=== PATIENT | male | born 1945 | race African-American/Black ===

== ENCOUNTER 2017-09-15 16:52 | Inpatient (IN) | payer MEDICARE ==
[~2017-09-15] VITALS: Ht 172.7 cm; Wt 75.7 kg
[~2017-09-15 16:52] MED LIST: AMLO5TAB2 PO; ASPI-183 PO; ATOR40TA16 PO; ATRITAB PO; HYDR12.57 PO; TAMS0.4C4 PO
[2017-09-15 16:53] VITALS: BP 169/77; PULSE 78; RESP 16; TEMP 100.3; O2SAT 98
[2017-09-15] MEDS ORDERED: SODIUM CHLOR 0.9% 1000 ML INJ 1,000 ML IV ONE (16:59)
[2017-09-15 17:05] VITALS: BP 169/77; PULSE 78; RESP 28; O2SAT 98
--- NOTE | 2017-09-15 17:17 | RADRPT ---
EXAM DATE/TIME: 09/15/2017 17:04 [facility] COMPARISON: MRI BRAIN W/O CONTRAST, June 20, 2016, 11:24. CT BRAIN W/O CONTRAST, June 19, 2016, 15:24. INDICATIONS : Stroke alert, aphasia. RADIATION DOSE: 37.17 CTDIvol (mGy) This report was called by Dr. Elliott to Dr. Sadler at 5: 13 PM MEDICAL HISTORY : Non-responsive. SURGICAL HISTORY : Non-responsive. ENCOUNTER: Initial ACUITY: 1 day PAIN SCALE: Non-responsive LOCATION: Bilateral head TECHNIQUE: Multiple contiguous axial images were obtained of the head. Using automated exposure control and adj ustment of the mA and/or kV according to patient size, radiation dose was kept as low as reasonably a chievable to obtain optimal diagnostic quality images. DICOM format image data is available electro nically for review and comparison. FINDINGS: CEREBRUM: There is low-density seen in the left occipital lobe, posterior left temporal lobe, and left thalamus . This appears to represent a subacute area of infarction. The no hemorrhage is seen. The ventricles and cortical sulci have a normal appearance. There is low-density seen throughout the cerebral white matter. The ventricles are normal for age. No evidence of midline shift or hemorrhage. No extra-axi al fluid collections are seen. There is low-density seen in the anterior left lateral aspect of the m idbrain from prior infarction. POSTERIOR FOSSA: The cerebellum and brainstem are intact. The 4th ventricle is midline. The cerebellopontine angle i s unremarkable. EXTRACRANIAL: The visualized portion of the orbits is intact. SKULL: The calvaria is intact. No evidence of skull fracture. CONCLUSION: 1. Area of recent infarction involving the left occipital and posterior temporal lobes. 2. Older infarction involving the anterior left lateral midbrain. 3. Underlying suspected small vessel ischemic change in the white matter. Damion Elliott MD on September 15, 2017 at 17:10 Board Certified Radiologist. This report was verified electronically.
[2017-09-15 17:30] LABS: AUTOMATED NEUTROPHIL # 3.1 TH/MM3 (1.8-7.7); BASOPHIL % 0.9 % (0.0-2.0); EOSINOPHIL % 0.4 % (0.0-4.0); HEMATOCRIT 33.7 % (39.0-51.0); HEMOGLOBIN 10.6 GM/DL (13.0-17.0); LYMPH % 30.6 % (9.0-44.0); LYMPHOCYTE # 1.6 TH/MM3 (1.0-4.8); MEAN CELL VOLUME 72.6 FL (80.0-100.0); MEAN CORPUSCULAR HGB CONC 31.6 % (32.0-36.0); MEAN PLATELET VOLUME 10.9 FL (7.0-11.0); MONO % 7.4 % (0.0-8.0); MONOCYTE # 0.4 TH/MM3 (0-0.9); NEUT % 60.7 % (16.0-70.0); PLATELET COUNT 154 TH/MM3 (150-450); RED BLOOD COUNT 4.64 MIL/MM3 (4.50-5.90); RED CELL DISTRIBUTION WIDTH 17.5 % (11.6-17.2); WHITE BLOOD COUNT 5.1 TH/MM3 (4.0-11.0)
[2017-09-15] MEDS ORDERED: IOHEXOL 350 MG/ML 10 ML VIAL (for RAD DIAG) IVCONTRAST ONE (17:40)
[2017-09-15 17:41] LABS: INTERNATIONAL NORMALIZED RATIO 1.1 RATIO
[2017-09-15 17:50] LABS: TROPONIN I 0.63 NG/ML (0.02-0.05)
--- NOTE | 2017-09-15 17:55 | RADRPT ---
EXAM DATE/TIME: 09/15/2017 17:18 [facility] COMPARISON: No previous studies available for comparison. INDICATIONS : Stroke alert, right side weakness. IV CONTRAST: 98 cc Omnipaque 350 (iohexol) IV ; Cumulative dose for multiple exams. RADIATION DOSE: 8.83 CTDIvol (mGy) ; Combined studies MEDICAL HISTORY : Cerebrovascular disease. CVA,HIV SURGICAL HISTORY : Non-responsive. ENCOUNTER: Initial ACUITY: 1 day PAIN SCALE: Non-responsive LOCATION: cranial TECHNIQUE: Volumetric scanning was performed using a multi-row detector CT scanner. The data was post processed with a variety of visualization algorithms including full volume maximum intensity projection, multi -planar sliding thin slab reformation, curved planar reformation, and surface rendering techniques. Using automated exposure control and adjustment of the mA and/or kV according to patient size, radiat ion dose was kept as low as reasonably achievable to obtain optimal diagnostic quality images. DICO M format image data is available electronically for review and comparison. FINDINGS: There is abrupt occlusion of the proximal left posterior cerebral artery approximately 2 cm from its origin off the tip of the basilar artery. The more dista left l posterior cerebral artery filled via collaterals. The right posterior cerebral artery arises from the right internal carotid artery. CONCLUSION: Occlusion of the proximal left posterior cerebral artery 2 cm from its origin. The more distal branch es do fill via collaterals. Damion Elliott MD on September 15, 2017 at 17:47 Board Certified Radiologist. This report was verified electronically.
--- NOTE | 2017-09-15 18:04 | RADRPT ---
EXAM DATE/TIME: 09/15/2017 17:18 [facility] COMPARISON: CTA BRAIN W 3D RECON, September 15, 2017, 17:18. INDICATIONS : Stroke alert, right sided weakness. IV CONTRAST: 99 cc Omnipaque 350 (iohexol) IV ; Cumulative dose for multiple exams. RADIATION DOSE: 8.83 CTDIvol (mGy) ; Combined studies MEDICAL HISTORY : Cerebrovascular disease. HIV,CVA SURGICAL HISTORY : Non-responsive. ENCOUNTER: Initial ACUITY: 1 day PAIN SCALE: Non-responsive LOCATION: neck Elevated flow velocities and ICA/CCA ratios have been found to correlate with increased degrees of vessel stenosis, calculated as percentage of diameter relative to a normal segment of distal ICA/CCA. TECHNIQUE: Volumetric scanning was performed using a multirow detector CT scanner. The data was post processed with a variety of visualization algorithms including full-volume maximum intensity projection, multip lanar sliding thin-slab reformation, curved-planar reformation, and surface-rendering techniques. Us ing automated exposure control and adjustment of the mA and/or kV according to patient size, radiatio n dose was kept as low as reasonably achievable to obtain optimal diagnostic quality images. DICOM f ormat image data is available electronically for review and comparison. FINDINGS: The study is severely limited. The vast majority of the contrast is within the systemic venous system . On the CTA of the head, there is mild contrast within the arterial structures in the neck. The comm on carotid and internal carotids are patent bilaterally. The vertebral arteries are patent bilaterall y. The internal carotid bulb medially directed posterior to the oropharynx secondary to tortuosity. CONCLUSION: Extremely limited CT of the head. The major vessels are patent. Damion Elliott MD on September 15, 2017 at 17:56 Board Certified Radiologist. This report was verified electronically.
--- NOTE | 2017-09-15 18:12 | PD ---
HPI Chief Complaint: Stroke Alert Time Seen by Provider: 16:59 Travel History International Travel<30 days: No Contact w/Intl Traveler<30days: No Traveled to known affect area: No History of Present Illness HPI This is a 72-year-old male who presents to the emergency department with weakness of his right arm and right leg. History is obtained from the patient' s daughter. The patient was evidently home with his girlfriend. The girlfriend reported that his symptoms started around 10 AM with speech difficulty but that he hasn't been walking normally all day. The patient has a history of stroke in the past about a year ago. His daughter also reports that he has HIV and he hasn't been taking his medications. Patient is unable to provide any history. PFSH Past Medical History Arthritis: Yes Autoimmune Disease: Yes (HIV ) Heart Rhythm Problems: Yes Cancer: No Cardiovascular Problems: Yes Cerebrovascular Accident: Yes Diabetes: No Diminished Hearing: No Endocrine: No Genitourinary: No Hypertension: Yes Immune Disorder: No Musculoskeletal: No Neurologic: Yes Psychiatric: No Reproductive: No Respiratory: No Immunizations Current: Yes Migraines: No Seizures: No Thyroid Disease: No Tetanus Vaccination: Unknown Influenza Vaccination: Yes ?: Unknown Past Surgical History Surgical History: Unable to Obtain Abdominal Surgery: No AICD: No Arteriovenous Shunt: No Cardiac Surgery: No Ear Surgery: No Endocrine Surgery: No Eye Surgery: Yes Genitourinary Surgery: No Gynecologic Surgery: No Joint Replacement: No Neurologic Surgery: Yes (lumbar fusion) Pacemaker: No Thoracic Surgery: No Social History Alcohol Use: No Tobacco Use: No Substance Use: No Allergies-Medications (Allergen,Severity, Reaction): Coded Allergies: No Known Allergies (Verified Allergy, Unknown, 09/15/17) Reported Meds & Prescriptions Reported Meds & Active Scripts Active Tamsulosin (Tamsulosin HCl) 0.4 Mg Cap 0.8 Mg PO HS PRN Reported Hydrochlorothiazide 12.5 Mg Cap 12.5 Mg PO DAILY Atorvastatin (Atorvastatin Calcium) 40 Mg Tab 40 Mg PO DAILY Amlodipine (Amlodipine Besylate) 5 Mg Tab 5 Mg PO DAILY Tamsulosin (Tamsulosin HCl) 0.4 Mg Cap 0.4 Mg PO DAILY Aspirin 325 Mg Tab 325 Mg PO DAILY Atripla (Shiikgbmi-Lkuarsovfhimu-Xinktoxyg) 600-200-300 Mg Tab 1 Tab PO DAILY Take on an empty stomach. Review of Systems ROS Limitations: Speech Impaired Physical Exam Narrative GENERAL: Uncomfortable appearing. SKIN: Focused skin assessment warm and dry. HEAD: Atraumatic. Normocephalic. EYES: Pupils equal and round. No injection or drainage. ENT: Moist mucous membranes NECK: Trachea midline. CARDIOVASCULAR: Regular rate and rhythm. No murmur appreciated. RESPIRATORY: Clear to auscultation. Breath sounds equal bilaterally. GASTROINTESTINAL: Abdomen soft, non-tender, nondistended. MUSCULOSKELETAL: No obvious deformities. NEUROLOGICAL: Open eyes and closes left hand to commands, unable to move right arm against gravity, right leg has 4 out of 5 strength, completely aphasic, unable to follow commands to assess coordination or visual george. Data Data Last Documented VS Vital Signs Date Time Temp Pulse Resp B/P (MAP) Pulse Ox O2 Delivery O2 Flow Rate FiO2 09/15/17 17:05 78 28 169/77 (107) 98 Nasal Cannula 2.00 09/15/17 16:53 100.3 Orders Orders Diet Npo (09/15/17 Dinner) Activity Bed Rest (09/15/17 ) Electrocardiogram (09/15/17 ) I-Stat Creatinine (09/15/17 16:59) I-Stat Profile (09/15/17 16:59) Prothrombin Time / Inr (Pt) (09/15/17 16:59) Act Partial Throm Time (Ptt) (09/15/17 16:59) Complete Blood Count With Diff (09/15/17 16:59) Fibrinogen (09/15/17 16:59) Creatine Kinase (Cpk) (09/15/17 16:59) Troponin I (09/15/17 16:59) Ua Includes Microscopic (09/15/17 16:59) Drug Screen, Random Urine (09/15/17 16:59) Type And Screen (09/15/17 16:59) Ct Brain W/O Iv Contrast(Rout) (09/15/17 ) Cta Brain W Iv Contrast W 3d (09/15/17 16:59) Cta Neck W Iv Contrast W 3d (09/15/17 16:59) Consult Neurology (09/15/17 ) Blood Glucose (09/15/17 16:59) Ecg Monitoring (09/15/17 16:59) Neuro Checks Q2HX12,Q4H (09/15/17 16:59) Nursing Bedside Swallow Assess .ONCE (09/15/17 16:59) Iv Access Insert/Monitor (09/15/17 16:59) NPO (09/15/17 16:59) Oximetry (09/15/17 16:59) Oxygen Administration (09/15/17 16:59) Sodium Chlor 0.9% 1000 Ml Inj (Ns 1000 M (09/15/17 16:59) Resp Oxygen Hernesto C Titrat 1-4 L (09/15/17 16:59) Cath For Specimen (09/15/17 16:59) (Hub Use Only)Inp Phy Cons/Ref (09/15/17 ) Iohexol 350 Inj (Omnipaque 350 Inj) (09/15/17 17:40) CKMB (09/15/17 17:02) CKMB% (09/15/17 17:02) Admit Order (Ed Use Only) (09/15/17 18:03) Labs Laboratory Tests Test 09/15/17 17:02 White Blood Count 5.1 TH/MM3 Red Blood Count 4.64 MIL/MM3 Hemoglobin 10.6 GM/DL Bedside Hemoglobin 12.2 G/DL Hematocrit 33.7 % Bedside Hematocrit 36.0 % Mean Corpuscular Volume 72.6 FL Mean Corpuscular Hemoglobin 23.0 PG Mean Corpuscular Hemoglobin Concent 31.6 % Red Cell Distribution Width 17.5 % Platelet Count 154 TH/MM3 Mean Platelet Volume 10.9 FL Neutrophils (%) (Auto) 60.7 % Lymphocytes (%) (Auto) 30.6 % Monocytes (%) (Auto) 7.4 % Eosinophils (%) (Auto) 0.4 % Basophils (%) (Auto) 0.9 % Neutrophils # (Auto) 3.1 TH/MM3 Lymphocytes # (Auto) 1.6 TH/MM3 Monocytes # (Auto) 0.4 TH/MM3 Eosinophils # (Auto) 0.0 TH/MM3 Basophils # (Auto) 0.0 TH/MM3 CBC Comment DIFF FINAL Differential Comment Prothrombin Time 11.0 SEC Prothromb Time International Ratio 1.1 RATIO Activated Partial Thromboplast Time 23.2 SEC Fibrinogen 303 mg/dL Bedside Sodium 145 MMOL/L Bedside Potassium 4.3 MMOL/L Bedside Chloride 107 MMOL/L Bedside Blood Urea Nitrogen 17 MG/DL Bedside Creatinine 1.3 MG/DL Bedside Glucose 101 MG/DL Total Creatine Kinase 397 U/L Creatine Kinase MB 4.9 NG/ML Creatine Kinase MB % 1.2 % Troponin I 0.63 NG/ML [facility] Medical Screen Exam Complete: Yes Emergency Medical Condition: Yes Differential Diagnosis low grade fever, hypertensive no leukocytosis anemia troponin .63 ekg, nsr, lvh, mild downward sloping of st segments in v3 Last 24 hours Impressions Neck CTA 09/15/17 1659 Signed Impressions: Service Date/Time: Friday, September 15, 2017 17:18 - CONCLUSION: Extremely limited CT of the head. The major vessels are patent. 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 The more distal branches do fill via collaterals. Damion Elliott MD Head CT 09/15/17 0000 Signed Impressions: Service Date/Time: Friday, September 15, 2017 17:04 - CONCLUSION: 1. Area of recent infarction involving the left occipital and posterior temporal lobes. 2. Older infarction involving the anterior left lateral midbrain. 3. Underlying suspected small vessel ischemic change in the white matter. Damion Elliott MD Narrative Course This is a 72-year-old male who presents to the emergency Department as a stroke alert. Initially it was unclear the time of onset of symptoms. NIH stroke scale was found to be 22. Patient was rushed to CT scan which demonstrated an infarct which likely occurred more than 6 hours ago. I spoke to the patient's daughter who had more history. Evidently his symptoms started when he woke up this morning and at 10 AM his speech symptoms started which places him outside of a 6 hour window for intervention. Based on this patient is not a TPA candidate. CT demonstrates infarction in the left occipital and posterior temporal lobes. Patient also has a troponin of 0.63. I suspect this is demand ischemia in the setting of his acute stroke. He had a stroke in 2016 during which his troponin elevated to 0.3. It was recommended that he have a cardiac workup as an outpatient but it's unclear if he ever pursued this. I did speak with Dr. Gomez's on-call for cardiology who agreed to defer anticoagulation at this time. Patient will be admitted for further neurologic workup. Critical Care Narrative Aggregate critical care time was 35 minutes. Time to perform other separately billable procedures was not included in the critical care time. My time did not include minutes spent treating any other patients simultaneously or on activities that did not directly contribute to the patient's treatment. The services I provided to this patient were to treat and/or prevent clinically significant deterioration that could result in: Disability, I provided critical care services requiring my management, as noted below: Chart data review, documentation time, medication orders and management, vital sign assessments/reviewing monitor data, ordering and reviewing lab tests, ordering and interpreting/reviewing x-rays and diagnostic studies, care of the patient and discussion of the patient with the admitting physicians. Stroke Alert NIHSS NIH Stroke Scale Result: 22 NIHSS Time Completed: 16:55 Thrombolytic Contraindications Contraindications Comment: Unclear time of onset Physician Communication Physician Communication Discussed with Dr. Vegas Diagnosis Diagnosis: Primary Impression: Ischemic stroke Admitting Physician Requests: it Pauline Sadler MD Sep 15, 2017 18:12
[2017-09-15 18:19] VITALS: BP 192/116; PULSE 76; RESP 25; O2SAT 98
--- NOTE | 2017-09-15 18:23 | HHI.HP ---
[facility] Primary Care Physician Unknown Admission Diagnosis stroke Diagnoses: Chief Complaint: weakness right side Travel History International Travel<30 Days: No Contact w/Intl Traveler <30 Da: No Traveled to Known Affected Are: No History of Present Illness 72 year old right-handed male with PMH of HIV+ and HTN who is brought to the ED by EMS as a stroke alert. Patient reports his symptoms started last night with worsening weakness on the right side, and dysarthria at 10 AM today. He has right arm and leg weakness and difficulty with speech. He has had difficulty ambulating secondary to his right leg weakness. Denies visual changes. Denies numbness or tingling in extremities. Denies chest pain. Reports mild shortness of breath. He does not have a primary care physician. Family at bedside. Review of Systems ROS Limitations: Clinical Condition, Language Barrier, Speech Impaired Except as stated in HPI: all other systems reviewed are Neg Past Family Social History Past Medical History HIV+ HTN CVA with right sided weakness in 2016 Past Surgical History No surgeries Reported Medications Reported Meds & Active Scripts Active Tamsulosin (Tamsulosin HCl) 0.4 Mg Cap 0.8 Mg PO HS PRN Reported Hydrochlorothiazide 12.5 Mg Cap 12.5 Mg PO DAILY Atorvastatin (Atorvastatin Calcium) 40 Mg Tab 40 Mg PO DAILY Amlodipine (Amlodipine Besylate) 5 Mg Tab 5 Mg PO DAILY Tamsulosin (Tamsulosin HCl) 0.4 Mg Cap 0.4 Mg PO DAILY Aspirin 325 Mg Tab 325 Mg PO DAILY Atripla (Oepvkjcre-Jzfdvakuyhwuo-Wwaavhczt) 600-200-300 Mg Tab 1 Tab PO DAILY Take on an empty stomach. Allergies: Coded Allergies: No Known Allergies (Verified Allergy, Unknown, 09/15/17) Family History Denies stroke or cardiac disease in mother or father Social History Denies tobacco use, illicit drug use or EtOH use. Lives home alone, daughter plans to take him home after this admission Physical Exam Vital Signs Vital Signs Date Time Temp Pulse Resp B/P (MAP) Pulse Ox O2 Delivery O2 Flow Rate FiO2 09/15/17 16:53 100.3 78 16 169/77 (107) 98 09/15/17 16:53 98 2.00 09/15/17 16:53 98 2.00 09/15/17 16:53 98 Nasal Cannula 2.00 Physical Exam GENERAL: This is a well-nourished, well-developed patient, in no apparent distress. SKIN: No rashes, ecchymoses or lesions. Cool and dry. HEAD: Atraumatic. Normocephalic. No temporal or scalp tenderness. EYES: Pupils equal round and reactive. Extraocular motions intact. No scleral icterus. No injection or drainage. ENT: Nose without bleeding, purulent drainage or septal hematoma. Throat without erythema, tonsillar hypertrophy or exudate. Uvula midline. Airway patent. NECK: Trachea midline. No JVD or lymphadenopathy. Supple, nontender, no meningeal signs. CARDIOVASCULAR: Regular rate and rhythm without murmurs, gallops, or rubs. RESPIRATORY: Clear to auscultation. Breath sounds equal bilaterally. No wheezes , rales, or rhonchi. GASTROINTESTINAL: Abdomen soft, non-tender, nondistended. No hepato-splenomegaly , or palpable masses. No guarding. MUSCULOSKELETAL: Extremities without clubbing, cyanosis, or edema. No joint tenderness, effusion, or edema noted. No calf tenderness. Negative Homans sign bilaterally. NEUROLOGICAL: Awake and alert. Cranial nerves II through XII intact. Motor and sensory grossly within normal limits. Five out of 5 muscle strength in all muscle groups. Normal speech. Laboratory Laboratory Tests Test 09/15/17 17:02 White Blood Count 5.1 Red Blood Count 4.64 Hemoglobin 10.6 Bedside Hemoglobin 12.2 Hematocrit 33.7 Bedside Hematocrit 36.0 Mean Corpuscular Volume 72.6 Mean Corpuscular Hemoglobin 23.0 Mean Corpuscular Hemoglobin Concent 31.6 Red Cell Distribution Width 17.5 Platelet Count 154 Mean Platelet Volume 10.9 Neutrophils (%) (Auto) 60.7 Lymphocytes (%) (Auto) 30.6 Monocytes (%) (Auto) 7.4 Eosinophils (%) (Auto) 0.4 Basophils (%) (Auto) 0.9 Neutrophils # (Auto) 3.1 Lymphocytes # (Auto) 1.6 Monocytes # (Auto) 0.4 Eosinophils # (Auto) 0.0 Basophils # (Auto) 0.0 CBC Comment DIFF FINAL Differential Comment Prothrombin Time 11.0 Prothromb Time International Ratio 1.1 Activated Partial Thromboplast Time 23.2 Fibrinogen 303 Bedside Sodium 145 Bedside Potassium 4.3 Bedside Chloride 107 Bedside Blood Urea Nitrogen 17 Bedside Creatinine 1.3 Bedside Glucose 101 Total Creatine Kinase 397 Creatine Kinase MB 4.9 Creatine Kinase MB % 1.2 Troponin I 0.63 Result Diagram: 09/15/17 1702 Imaging Last Impressions Neck CTA 09/15/17 1659 Signed Impressions: Service Date/Time: Friday, September 15, 2017 17:18 - CONCLUSION: Extremely limited CT of the head. The major vessels are patent. 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 The more distal branches do fill via collaterals. Damion Elliott MD Head CT 09/15/17 0000 Signed Impressions: Service Date/Time: Friday, September 15, 2017 17:04 - CONCLUSION: 1. Area of recent infarction involving the left occipital and posterior temporal lobes. 2. Older infarction involving the anterior left lateral midbrain. 3. Underlying suspected small vessel ischemic change in the white matter. Damion Elliott MD Caprini VTE Risk Assessment Caprini VTE Risk Assessment: Mod/High Risk (score >= 2) Caprini Risk Assessment Model Point Value = 1 Point Value = 2 Point Value = 3 Point Value = 5 Age 41-60 Minor surgery BMI > 25 kg/m2 Swollen legs Varicose veins or History of unexplained or recurrent spontaneous Oral contraceptives or hormone replacement Sepsis (< 1 month) Serious lung disease, including pneumonia (< 1 month) Abnormal pulmonary function Acute myocardial infarction Congestive heart failure (< 1 month) History of inflammatory bowel disease Medical patient at bed rest Age 61-74 Arthroscopic surgery Major open surgery (> 45 min) Laparoscopic surgery (> 45 min) Malignancy Confined to bed (> 72 hours) Immobilizing plaster cast Central venous access Age >= 75 History of VTE Family history of VTE Factor V Leiden Prothrombin [id number] Lupus anticoagulant Anticardiolipin antibodies Elevated serum homocysteine Heparin-induced thrombocytopenia Other congenital or acquired thrombophilia Stroke (< 1 month) Elective arthroplasty Hip, pelvis, or leg fracture Acute spinal cord injury (< 1 month) Prophylaxis Regimen Total Risk Factor Score Risk Level Prophylaxis Regimen 0-1 Low Early ambulation 2 Moderate Order ONE of the following: *Sequential Compression Device (SCD) *Heparin 5000 units SQ BID 3-4 Higher Order ONE of the following medications: *Heparin 5000 units SQ TID *Enoxaparin/Lovenox 40 mg SQ daily (WT < 150 kg, CrCl > 30 mL/min) *Enoxaparin/Lovenox 30 mg SQ daily (WT < 150 kg, CrCl > 10-29 mL/min) *Enoxaparin/Lovenox 30 mg SQ BID (WT < 150 kg, CrCl > 30 mL/min) AND/OR *Sequential Compression Device (SCD) 5 or more Highest Order ONE of the following medications: *Heparin 5000 units SQ TID (Preferred with Epidurals) *Enoxaparin/Lovenox 40 mg SQ daily (WT < 150 kg, CrCl > 30 mL/min) *Enoxaparin/Lovenox 30 mg SQ daily (WT < 150 kg, CrCl > 10-29 mL/min) *Enoxaparin/Lovenox 30 mg SQ BID (WT < 150 kg, CrCl > 30 mL/min) AND *Sequential Compression Device (SCD) Assessment and Plan Assessment and Plan 72 year old right-handed male who is HIV+ and with HTN, previous stroke in 2016 who presented as a stoke alert in ED with complaints of dysarthria, and right- sided face, arm, and leg weakness. Initially it was unclear the time of onset of symptoms. NIH stroke scale was found to be 22. Patient was rushed to CT scan which demonstrated an infarct which likely occurred more than 6 hours ago. His symptoms started when he woke up this morning and at 10 AM his speech symptoms started which places him outside of a 6 hour window for intervention. Based on this patient is not a TPA candidate. CT demonstrates infarction in the left occipital and posterior temporal lobes. Neuro consulted as well as cardiology CVA (cerebral vascular accident) Status: Acute Plan: - Head CT acute infarction on left occipital and and inferior temporal lobe. 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 - Neurology consulted, appreciate recommendations - Allow for permissive hypertension at this time - Bedside swallow study - PT/OT consult - Neuro checks q4 hours ST segment changes on electrocardiogram Status: Acute Plan: -EKG reviewed with ST changes in leads II, III, aVF and with RBBB Repeat EKG NSR, LVH, mild downward sloping of st segments in V3 - Troponin 0.6 - Will check EKG and cardiac enzymes q6h x2 to assess for ACS - Cardiac telemetry - Aspirin 325mg daily - Lipitor 40mg po qhs - Consult Dr Yuen his cardiology Dr - Lipid profile and HbA1c - ECHO ordered HIV (human immunodeficiency virus infection) Status: Chronic Plan: - Patient had seen hematology/oncology about ~11 years ago and diagnosed with HIV - Will need to establish care to be provided as an outpatient Discussed Condition With patient, nurse, family, ED physician Physician Certification 2 Midnight Certification Type: Admission for Inpatient Services Order for Inpatient Services The services are ordered in accordance with Medicare regulations or non- Medicare payer requirements, as applicable. In the case of services not specified as inpatient-only, they are appropriately provided as inpatient services in accordance with the 2-midnight benchmark. Estimated LOS (days): 3 days is the estimated time the patient will need to remain in the hospital, assuming treatment plan goals are met and no additional complications. Post-Hospital Plan: Home Denisa Butcher MD Sep 15, 2017 18:23
[2017-09-15] MEDS ORDERED: SODIUM CHLORIDE 0.9% FLUSH 10 ML FLUSH IV FLUSH PRN (18:45)
[2017-09-15] MEDS ORDERED: GLUCAGON 1 MG/ML VIAL OTHER PRN (18:45)
[2017-09-15] MEDS ORDERED: ENALAPRILAT 1.25 MG/ML VIAL IV PUSH PRN (18:45)
[2017-09-15] MEDS ORDERED: LABETALOL HCL 100 MG/20 ML VIAL IV PUSH PRN (18:45)
[2017-09-15] MEDS ORDERED: DEXTROSE 50% IN WATER 50 ML VIAL(D50) IV PUSH PRN (18:45)
[2017-09-15 18:54] VITALS: BP 182/113; PULSE 74; RESP 18; O2SAT 98
[2017-09-15] MEDS ORDERED: ONDANSETRON HCL 4 MG/2 ML VIAL IV ONE (19:15)
[2017-09-15 21:00] VITALS: BP 195/113; PULSE 68; RESP 23; TEMP 98.4; O2SAT 98
[2017-09-15] MEDS: INSULIN ASPART SUPPLEMENTAL SCALE SQ SCH (21:00)
[2017-09-15] MEDS: SODIUM CHLORIDE 0.9% FLUSH 10 ML FLUSH IV FLUSH SCH (21:00)
[2017-09-15] MEDS: PRAVASTATIN SOD 40 MG TAB PO SCH (21:00)
[2017-09-16] VITALS (10 sets, daily range): BP systolic 178–192; BP diastolic 100–121; PULSE 66–98; RESP 18–23; TEMP 97.9–100.1; O2SAT 93–98
[2017-09-16] MEDS: HEPARIN SODIUM - SQ 10,000 UNITS/ML VIAL SQ SCH ×3 (00:54→20:53)
[2017-09-16 07:43] LABS: AUTOMATED NEUTROPHIL # 3.3 TH/MM3 (1.8-7.7); BASOPHIL % 0.4 % (0.0-2.0); EOSINOPHIL % 0.8 % (0.0-4.0); HEMATOCRIT 32.2 % (39.0-51.0); HEMOGLOBIN 10.1 GM/DL (13.0-17.0); LYMPH % 24.7 % (9.0-44.0); LYMPHOCYTE # 1.3 TH/MM3 (1.0-4.8); MEAN CELL VOLUME 72.4 FL (80.0-100.0); MEAN CORPUSCULAR HEMOGLOBIN 22.7 PG (27.0-34.0); MEAN CORPUSCULAR HGB CONC 31.3 % (32.0-36.0); MEAN PLATELET VOLUME 10.9 FL (7.0-11.0); MONO % 9.5 % (0.0-8.0); MONOCYTE # 0.5 TH/MM3 (0-0.9); NEUT % 64.6 % (16.0-70.0); PLATELET COUNT 140 TH/MM3 (150-450); RED BLOOD COUNT 4.44 MIL/MM3 (4.50-5.90); RED CELL DISTRIBUTION WIDTH 17.2 % (11.6-17.2); WHITE BLOOD COUNT 5.2 TH/MM3 (4.0-11.0)
[2017-09-16 08:00] LABS: CALCIUM 8.1 MG/DL (8.5-10.1); CREATININE 1.31 MG/DL (0.60-1.30)
[2017-09-16] MEDS: INSULIN ASPART SUPPLEMENTAL SCALE SQ SCH ×4 (08:00→20:58)
[2017-09-16 08:04] LABS: CHOLESTEROL/ HDL RATIO 3.67 RATIO; HDL CHOLESTEROL 30.5 MG/DL (40.0-60.0)
[2017-09-16 08:09] LABS: TROPONIN I 0.69 NG/ML (0.02-0.05)
--- NOTE | 2017-09-16 08:12 | PD.CONS ---
HPI Consult Requested By Primary Care Physician Unknown History of Present Illness 72 year old M with PMHx significant for HIV and HTN consulted for elevated troponins. He was brought to the ED by EMS as a stroke alert. Patient reports his symptoms started last night with worsening weakness on the right side, and dysarthria at 10 AM today. He has right arm and leg weakness and difficulty with speech. He has had difficulty ambulating secondary to his right leg weakness. Denies chest pain, SOB or palpitations. Review of Systems Consitutional: DENIES: Fatigue, Fever, Chills, Weight gain, Weight loss Eyes: DENIES: Amaurosis Fugax, Change in vision HEENT: DENIES: Lightheadedness, Change in hearing Respiratory: DENIES: See HPI, Cough, Snoring, Shortness of breath, Wheezing, Sputum production Cardiovascular: DENIES: See HPI, Chest pain, Palpitations, Syncope, Tachycardia Gastrointestinal: DENIES: Nausea, Vomiting, Change in bowel habits, Reflux, Bloody stools, Melena Genitourinary: DENIES: Urinary incontinence, Difficulty voiding Integumentary: DENIES: Rash Neurologic: DENIES: Tingling or numbness, Memory problems, Poor Balance, Stroke symptoms Musculoskeletal: DENIES: Joint pain, Muscle pain, Limited range of motion, Back pain Psychiatric: DENIES: Anxiety, Depression, Sleep disturbances Hematologic: DENIES: Bruising tendencies, Bleeding tendencies Endocrine: DENIES: Weight gain, Weight loss, Thyroid disease Past Family Social History Allergies: Coded Allergies: No Known Allergies (Verified Allergy, Unknown, 09/15/17) Past Medical History HIV+ HTN CVA with right sided weakness in 2016 Past Surgical History No surgeries Reported Medications Reported Meds & Active Scripts Active Tamsulosin (Tamsulosin HCl) 0.4 Mg Cap 0.8 Mg PO HS PRN Reported Hydrochlorothiazide 12.5 Mg Cap 12.5 Mg PO DAILY Atorvastatin (Atorvastatin Calcium) 40 Mg Tab 40 Mg PO DAILY Amlodipine (Amlodipine Besylate) 5 Mg Tab 5 Mg PO DAILY Tamsulosin (Tamsulosin HCl) 0.4 Mg Cap 0.4 Mg PO DAILY Aspirin 325 Mg Tab 325 Mg PO DAILY Atripla (Zyaijanjw-Mqsjgytndxvnu-Xuwoxxywq) 600-200-300 Mg Tab 1 Tab PO DAILY Take on an empty stomach. Active Ordered Medications Current Medications Medications (Trade) Dose Ordered Sig/Eyal Route Start Time Stop Time Status Last Admin (NS Flush) 2 ml BID IV FLUSH 09/15/17 21:00 (NS Flush) 2 ml UNSCH PRN IV FLUSH 09/15/17 18:45 (Vasotec Inj) 1.25 mg Q4H PRN IV PUSH 09/15/17 18:45 (Trandate Inj) 10 mg Q2H PRN IV PUSH 09/15/17 18:45 09/15/17 18:54 (Aspirin Chew) 81 mg DAILY PO 09/16/17 09:00 (Pravachol) 40 mg HS PO 09/15/17 21:00 (NovoLOG SUPPLEMENTAL SCALE) 1 ACHS SQ 09/15/17 21:00 (D50w (Vial) Inj) 50 ml UNSCH PRN IV PUSH 09/15/17 18:45 (Glucagon Inj) 1 mg UNSCH PRN OTHER 09/15/17 18:45 (Heparin Inj) 5,000 units Q12H SQ 09/15/17 21:00 09/16/17 00:54 Family History Denies stroke or cardiac disease in mother or father Social History Denies tobacco use, illicit drug use or EtOH use. Lives home alone, daughter plans to take him home after this admission Physical Exam Vital Signs Vital Signs Date Time Temp Pulse Resp B/P (MAP) Pulse Ox O2 Delivery O2 Flow Rate FiO2 09/16/17 04:30 98.1 66 20 188/100 (129) 97 09/16/17 01:30 97.9 69 23 190/110 (136) 98 09/15/17 21:00 98.4 68 23 195/113 (140) 98 09/15/17 20:02 09/15/17 18:54 74 18 182/113 (136) 98 Nasal Cannula 2.00 09/15/17 18:19 76 25 192/116 (141) 98 09/15/17 17:05 78 28 169/77 (107) 98 Nasal Cannula 2.00 09/15/17 16:53 100.3 78 16 169/77 (107) 98 09/15/17 16:53 98 2.00 09/15/17 16:53 98 2.00 09/15/17 16:53 98 Nasal Cannula 2.00 09/15/17 16:53 98 Room Air Physical Exam GENERAL: Well-nourished, well-developed patient. SKIN: Warm and dry. HEAD: Normocephalic. EYES: No scleral icterus. No injection or drainage. NECK: Supple, trachea midline. No JVD or lymphadenopathy. CARDIOVASCULAR: Regular rate and rhythm 1/6 DAYNA no gallops, or rubs. RESPIRATORY: Breath sounds equal bilaterally. No accessory muscle use. GASTROINTESTINAL: Abdomen soft, non-tender, nondistended. EXTREMITIES: No cyanosis, or edema. Laboratory Laboratory Tests Test 09/15/17 17:02 09/15/17 22:48 09/16/17 06:44 White Blood Count 5.1 5.2 Red Blood Count 4.64 4.44 Hemoglobin 10.6 10.1 Bedside Hemoglobin 12.2 Hematocrit 33.7 32.2 Bedside Hematocrit 36.0 Mean Corpuscular Volume 72.6 72.4 Mean Corpuscular Hemoglobin 23.0 22.7 Mean Corpuscular Hemoglobin Concent 31.6 31.3 Red Cell Distribution Width 17.5 17.2 Platelet Count 154 140 Mean Platelet Volume 10.9 10.9 Neutrophils (%) (Auto) 60.7 64.6 Lymphocytes (%) (Auto) 30.6 24.7 Monocytes (%) (Auto) 7.4 9.5 Eosinophils (%) (Auto) 0.4 0.8 Basophils (%) (Auto) 0.9 0.4 Neutrophils # (Auto) 3.1 3.3 Lymphocytes # (Auto) 1.6 1.3 Monocytes # (Auto) 0.4 0.5 Eosinophils # (Auto) 0.0 0.0 Basophils # (Auto) 0.0 0.0 CBC Comment DIFF FINAL DIFF FINAL Differential Comment Prothrombin Time 11.0 Prothromb Time International Ratio 1.1 Activated Partial Thromboplast Time 23.2 Fibrinogen 303 Bedside Sodium 145 Bedside Potassium 4.3 Bedside Chloride 107 Bedside Blood Urea Nitrogen 17 Bedside Creatinine 1.3 Bedside Glucose 101 Total Creatine Kinase 397 Creatine Kinase MB 4.9 Creatine Kinase MB % 1.2 Troponin I 0.63 0.70 Blood Urea Nitrogen 14 Creatinine 1.31 Random Glucose 92 Calcium Level 8.1 Sodium Level 141 Potassium Level 3.8 Chloride Level 112 Carbon Dioxide Level 23.0 Anion Gap 6 Estimat Glomerular Filtration Rate 66 Triglycerides Level 57 Cholesterol Level 112 Result Diagram: 09/16/17 0644 09/16/17 0644 Imaging Last Impressions Neck CTA 09/15/17 1659 Signed Impressions: Service Date/Time: Friday, September 15, 2017 17:18 - CONCLUSION: Extremely limited CT of the head. The major vessels are patent. 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 The more distal branches do fill via collaterals. Damion Elliott MD Head CT 09/15/17 0000 Signed Impressions: Service Date/Time: Friday, September 15, 2017 17:04 - CONCLUSION: 1. Area of recent infarction involving the left occipital and posterior temporal lobes. 2. Older infarction involving the anterior left lateral midbrain. 3. Underlying suspected small vessel ischemic change in the white matter. Damion Elliott MD Assessment and Plan Problem List: (1) CVA (cerebral vascular accident) ICD Codes: I63.9 - Cerebral infarction, unspecified Status: Acute Plan: 72 y/o M s/p CVA. No CV complaints. Telemetry SR with episodes of Afib with SVT, asymptomatic. He remains afebrile, hemodynamically stable recovering from CVA. Troponin minimally elevated in the setting of CVA and MARCIN, no need LHC at this time. HTN not controlled. Recommendations: 1. 2DEcho 2. 48Hr Holter monitor. If Afib identified OAC strongly recommended. 3. Statins, BB and ASA 4. Carotid Ultrasound 5. Neuro consult 6. Follow up with Cardiology upon discharge 7. Avoid electrolytes abnormalities 8. PT/OT Thank you for the opportunity to participate in the care of this patient Will be available on a PRN basis for an questions or concerns. (2) Hypertension ICD Codes: I10 - Essential (primary) hypertension Status: Acute (3) HIV (human immunodeficiency virus infection) ICD Codes: Z21 - Asymptomatic human immunodeficiency virus [HIV] infection status Status: Chronic (4) MARCIN (acute kidney injury) ICD Codes: N17.9 - Acute kidney failure, unspecified Status: Acute (5) Ischemic stroke ICD Codes: I63.9 - Cerebral infarction, unspecified Status: Acute (6) Elevated troponin ICD Codes: R79.89 - Other specified abnormal findings of blood chemistry Status: Acute Gonzalez-Kodi Long MD Sep 16, 2017 08:12
[2017-09-16] MEDS ORDERED: ASPIRIN 81 MG CHEW TAB PO SCH (09:00)
[2017-09-16] MEDS: SODIUM CHLORIDE 0.9% FLUSH 10 ML FLUSH IV FLUSH SCH ×2 (09:08→20:58)
[2017-09-16] MEDS ORDERED: METOPROLOL TARTRATE 50 MG TAB PO SCH (09:15)
[2017-09-16] MEDS: HYDROCHLOROTHIAZIDE 12.5 MG CAP PO SCH (09:15)
[2017-09-16] MEDS ORDERED: ONDANSETRON HCL 4 MG/2 ML VIAL ONE (14:52)
[2017-09-16] MEDS ORDERED: SODIUM CHLORIDE 0.9% FLUSH 10 ML FLUSH IV FLUSH PRN (15:45)
[2017-09-16] MEDS ORDERED: DEXTROSE 50% IN WATER 50 ML VIAL(D50) IV PUSH PRN (15:45)
[2017-09-16] MEDS ORDERED: GLUCAGON 1 MG/ML VIAL OTHER PRN (15:45)
[2017-09-16 16:10] LABS: HEMOGLOBIN A1C 6.1 % (4.3-6.0)
--- NOTE | 2017-09-16 16:17 | HHI.PR ---
Subjective Remarks patient right handed, non smoker telemetry- in sinus rhythm no complains of headaches, nausea or vomiting speech + expressive aphasia ff some commands Objective Vitals Vital Signs Date Time Temp Pulse Resp B/P (MAP) Pulse Ox O2 Delivery O2 Flow Rate FiO2 09/16/17 12:31 98.0 76 20 178/112 (134) 98 09/16/17 12:30 95 2.00 09/16/17 10:32 75 09/16/17 08:07 99.2 76 20 192/102 (132) 98 09/16/17 04:30 98.1 66 20 188/100 (129) 97 09/16/17 01:30 97.9 69 23 190/110 (136) 98 09/15/17 21:00 98.4 68 23 195/113 (140) 98 09/15/17 20:02 09/15/17 18:54 74 18 182/113 (136) 98 Nasal Cannula 2.00 09/15/17 18:19 76 25 192/116 (141) 98 09/15/17 17:05 78 28 169/77 (107) 98 Nasal Cannula 2.00 09/15/17 16:53 100.3 78 16 169/77 (107) 98 09/15/17 16:53 98 2.00 09/15/17 16:53 98 2.00 09/15/17 16:53 98 Nasal Cannula 2.00 09/15/17 16:53 98 Room Air I/O 09/15/17 09/15/17 09/15/17 09/16/17 09/16/17 09/16/17 07:00 15:00 23:00 07:00 15:00 23:00 Intake Total 0 ml 0 ml 1000 ml Balance 0 ml 0 ml 1000 ml Intake Oral 0 ml 0 ml IV Total 1000 ml # Voids 5 3 # Bowel Movements 5 2 Result Diagram: 09/16/17 0644 09/16/17 0644 Imaging Last Impressions Neck CTA [id number] Signed Impressions: Service Date/Time: Friday, September 15, 2017 17:18 - CONCLUSION: Extremely limited CT of the head. The major vessels are patent. 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 The more distal branches do fill via collaterals. Damion Elliott MD Head CT 09/15/17 0000 Signed Impressions: Service Date/Time: Friday, September 15, 2017 17:04 - CONCLUSION: 1. Area of recent infarction involving the left occipital and posterior temporal lobes. 2. Older infarction involving the anterior left lateral midbrain. 3. Underlying suspected small vessel ischemic change in the white matter. Damion Elliott MD Objective Remarks awake and alert, + expressive aphasia anicteric + mild facial asymmetry tongue midline-weak gag no nuchal rigidity lungs- no rales regular rhythm- occasional PAcs abdomen soft, nontender extremities left sided plegia A/P Assessment and Plan 72 year old right-handed male who is HIV+ and with HTN, previous stroke in 2016 who presented as a stoke alert in ED with complaints of dysarthria, and right- sided face, arm, and leg weakness. Initially it was unclear the time of onset of symptoms. NIH stroke scale was found to be 22. Patient was rushed to CT scan which demonstrated an infarct which likely occurred more than 6 hours ago. His symptoms started when he woke up this morning and at 10 AM his speech symptoms started which places him outside of a 6 hour window for intervention. Based on this patient is not a TPA candidate. CT demonstrates infarction in the left occipital and posterior temporal lobes. Neuro consulted as well as cardiology Acute CVA (cerebral vascular accident) involving left occipital and temporal lobe history of previous CVA per friend at bedside - still ambulates independently occasionally uses a cane - Head CT acute infarction on left occipital and and inferior temporal lobe. 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 speech therapy - swallowing and speech therapy- mechanical soft with thin liquids - Neuro checks q4 hours ST segment changes on electrocardiogram elevated troponin in the setting of CVA -EKG reviewed with ST changes in leads II, III, aVF and with RBBB, LAD, LAHB - Troponin 0.6 - Will check EKG and cardiac enzymes q6h x2 to assess for ACS - Cardiac telemetry - Aspirin 325mg daily - Lipitor 40mg po qhs - start metoprolol 25 mg po bid - cardiology ff - Lipid profile and HbA1c - ECHO ordered - 48 hours Holter monitoring HIV (human immunodeficiency virus infection) - Patient had seen hematology/oncology about ~11 years ago and diagnosed with HIV - Will need to establish care to be provided as an outpatient Acute KI r/o underlying CKI -start on gentle fluids On Heparin SQ Mercedes Johnson MD Sep 16, 2017 16:17
[2017-09-16] MEDS: SODIUM CHLOR 0.9% 1000 ML INJ 1,000 ML IV SCH (17:20)
[2017-09-16] MEDS: ASPIRIN 325 MG TAB PO SCH (17:21)
--- NOTE | 2017-09-16 17:30 | RADRPT ---
EXAM DATE/TIME: 09/16/2017 16:54 [facility] COMPARISON: CHEST SINGLE AP, June 19, 2016, 17:05. INDICATIONS : Short of breath MEDICAL HISTORY : Cardiovascular disease. HIV,CVA SURGICAL HISTORY : None. ENCOUNTER: Initial ACUITY: 2 days PAIN SCORE: Non-responsive. LOCATION: Bilateral chest FINDINGS: Mild diffuse nodular interstitial prominence. Left lung base airspace disease and volume loss. Cardia c silhouette is mildly enlarged. Remainder of exam is unchanged. CONCLUSION: 1. Mild cardiomegaly with diffuse nodular interstitial prominence which may reflect atypical pulmonar y edema or atypical infection in this patient with history of HIV. 2. Left lower lung zone airspace disease and volume loss concerning for pneumonia. David Soares MD on September 16, 2017 at 17:25 Board Certified Radiologist. This report was verified electronically.
--- NOTE | 2017-09-16 17:44 | EKG ---
Date Performed: 09/15/2017 Time Performed: 21:02:28 PTAGE: 72 years EKG: Sinus rhythm RIGHT BUNDLE BRANCH BLOCK LEFT ANTERIOR FASCICULAR BLOCK LEFT VENTRICULAR HYPERTROPHY AND ST-T CONRAD E Since previous tracing, no significant change noted ABNORMAL ECG PREVIOUS TRACING : 09/15/2017 17.39 DOCTOR: Ángela Larose Interpretating Date/Time 09/16/2017 17:42:32
--- NOTE | 2017-09-16 17:44 | EKG ---
Date Performed: 09/15/2017 Time Performed: 17:39:21 PTAGE: 72 years EKG: Sinus rhythm WITH OCCASIONAL SUPRAVENTRICULAR PREMATURE COMPLEXES RIGHT BUNDLE BRANCH BLOCK LEFT ANTERIOR FASCICU LAR BLOCK LEFT VENTRICULAR HYPERTROPHY AND ST-T CHANGE Since previous tracing, no significant change noted ABNORMAL ECG PREVIOUS TRACING : 06/20/2016 01.32 DOCTOR: Ángela Larose Interpretating Date/Time 09/16/2017 17:42:12
--- NOTE | 2017-09-16 17:49 | ECHRPT ---
Indication: CVA/TIA CONCLUSIONS Normal left ventricular size. Mild concentric left ventricular hypertrophy. The left ventricular systolic function is low normal with an estimated ejection fraction of 50%. The left atrial size is mildly dilated. The right atrial size is moderately dilated. A patent foramen ovale is present with a huva-ro-wbxne shunt demonstrated by color flow Doppler interrogation. Fdgz-da-btyujmhj mitral valve regurgitation. Aortic valve sclerosis is present. Wayh-nu-yzjskmty aortic valve regurgitation. There is moderate tricuspid regurgitation. The estimated pulmonary arterial pressure is 62 mmHg. Mild pulmonary valve regurgitation. BP: 192 / 102 HR: 75 Rhythm: Sinus MEASUREMENTS (Male / Female) Normal Values Technical Quality:Fair 2D ECHO LV Diastolic Diameter PLAX 5.0 cm 4.2 - 5.9 / 3.9 - 5.3 cm LV Systolic Diameter PLAX 3.9 cm IVS Diastolic Thickness 1.0 cm 0.6 - 1.0 / 0.6 - 0.9 cm LVPW Diastolic Thickness 1.0 cm 0.6 - 1.0 / 0.6 - 0.9 cm LV Relative Wall Thickness 0.4 RV Internal Dim ED PLAX 3.3 cm LVOT Diameter 2.3 cm Aortic Root Diameter 4.0 cm LA Systolic Diameter LX 3.1 cm 3.0 - 4.0 / 2.7 - 3.8 cm M-MODE AV Cusp Separation MM 2.2 cm DOPPLER AV Peak Velocity 128.0 cm/s AV Peak Gradient 6.6 mmHg AV Mean Gradient 4.0 mmHg AV Velocity Time Integral 19.9 cm AI Peak Velocity 560.0 cm/s AI Peak Gradient 125.4 mmHg AI Pressure Half Time 567.0 ms LVOT Peak Velocity 104.0 cm/s LVOT Peak Gradient 4.3 mmHg LVOT Velocity Time Integral 16.8 cm LVOT Cardiac Index 2671.4 cm/minm AV Area Cont Eq vti 3.5 cm AV Area Cont Eq pk 3.4 cm Mitral E Point Velocity 95.8 cm/s Mitral A Point Velocity 42.9 cm/s Mitral E to A Ratio 2.2 LV E' Lateral Velocity 6.9 cm/s Mitral E to LV E' Lateral Ratio 13.8 LV E' Septal Velocity 4.4 cm/s Mitral E to LV E' Septal Ratio 21.8 TR Peak Velocity 360.0 cm/s TR Peak Gradient 51.8 mmHg Right Atrial Pressure 10.0 mmHg Pulmonary Artery Systolic Pressu 61.8 mmHg Right Ventricular Systolic Press 61.8 mmHg PV Peak Velocity 63.2 cm/s PV Peak Gradient 1.6 mmHg FINDINGS LEFT VENTRICLE Normal left ventricular size. Mild concentric left ventricular hypertrophy. The left ventricular systolic function is low normal with an estimated ejection fraction of 50%. RIGHT VENTRICLE Normal right ventricular size and systolic function. LEFT ATRIUM The left atrial size is mildly dilated. RIGHT ATRIUM The right atrial size is moderately dilated. ATRIAL SEPTUM A patent foramen ovale is present with a apbw-[id number] shunt demonstrated by color flow Doppler interrogation. AORTA The aortic root and proximal ascending aorta are normal in size on limited imaging. MITRAL VALVE Lvzf-jz-iecjusie mitral valve regurgitation. AORTIC VALVE Aortic valve sclerosis is present. Gcfo-bm-jmrdnemf aortic valve regurgitation. TRICUSPID VALVE There is moderate tricuspid regurgitation. The estimated pulmonary arterial pressure is 61.8 mmHg. PULMONARY VALVE Mild pulmonary valve regurgitation. VESSELS The inferior vena cava is normal in size. PERICARDIUM No pericardial effusion. Hector Barkley MD, FACC (Electronically Signed) Final Date:16 September 2017 17:48
[2017-09-16] MEDS: METOPROLOL TARTRATE 50 MG TAB PO SCH (18:00)
[2017-09-16] MEDS: PRAVASTATIN SOD 40 MG TAB PO SCH (20:53)
[2017-09-17] VITALS (12 sets, daily range): BP systolic 170–205; BP diastolic 107–130; PULSE 75–86; RESP 18–20; TEMP 98.4–101.2; O2SAT 94–100
[2017-09-17] MEDS: ACETAMINOPHEN 325 MG TAB PO PRN (05:45)
[2017-09-17] MEDS: METOPROLOL TARTRATE 50 MG TAB PO SCH ×3 (06:00→22:07)
[2017-09-17] MEDS: SODIUM CHLOR 0.9% 1000 ML INJ 1,000 ML IV SCH (07:35)
[2017-09-17] MEDS: INSULIN ASPART SUPPLEMENTAL SCALE SQ SCH ×4 (08:00→22:17)
[2017-09-17 08:40] LABS: BICARBONATE 22.7 MEQ/L (21.0-32.0); BLOOD UREA NITROGEN 15 MG/DL (7-18); CHLORIDE 108 MEQ/L (98-107); CREATININE 1.33 MG/DL (0.60-1.30); GLOMERULAR FILTRATION RATE 64 ML/MIN (>89); GLUCOSE,RANDOM 89 MG/DL (74-106); IRON (FE) 24 MCG/DL (65-175); SODIUM (NA) 141 MEQ/L (136-145)
[2017-09-17 08:43] LABS: % SATURATION IRON PROFILE 6.4 % (20-50); FERRITIN 24 NG/ML (26-388); TOTAL IRON BINDING CAPACITY 374 MCG/DL (250-450)
[2017-09-17 08:56] LABS: AMORPHOUS SEDIMENT, URINE OCC; BACTERIA, URINE MANY /hpf; BILIRUBIN, URINE NEG (NEG); BLOOD, URINE LARGE (NEG); GLUCOSE,URINE NEG (NEG); KETONE, URINE TRACE mg/dL (NEG); MUCUS URINE MANY /lpf (OCC); NITRITE,URINE NEG (NEG); URINE LEUKOCYTE ESTERASE MOD (NEG)
[2017-09-17 08:57] LABS: URINE COLOR DARK-RED (YELLW/STRAW)
[2017-09-17] MEDS: SODIUM CHLORIDE 0.9% FLUSH 10 ML FLUSH IV FLUSH SCH ×2 (09:33→22:19)
[2017-09-17] MEDS: HEPARIN SODIUM - SQ 10,000 UNITS/ML VIAL SQ SCH ×2 (09:33→22:17)
[2017-09-17] MEDS: ASPIRIN 325 MG TAB PO SCH (09:33)
[2017-09-17] MEDS: HYDROCHLOROTHIAZIDE 12.5 MG CAP PO SCH (09:33)
[2017-09-17 12:07] LABS: HEMATOCRIT 32.2 % (39.0-51.0); HEMOGLOBIN 10.2 GM/DL (13.0-17.0); MEAN CELL VOLUME 72.5 FL (80.0-100.0); MEAN CORPUSCULAR HEMOGLOBIN 23.1 PG (27.0-34.0); MEAN CORPUSCULAR HGB CONC 31.8 % (32.0-36.0); MEAN PLATELET VOLUME 10.2 FL (7.0-11.0); PLATELET COUNT 138 TH/MM3 (150-450); RED BLOOD COUNT 4.44 MIL/MM3 (4.50-5.90); RED CELL DISTRIBUTION WIDTH 17.1 % (11.6-17.2); WHITE BLOOD COUNT 5.6 TH/MM3 (4.0-11.0)
[2017-09-17 12:10] LABS: INTERNATIONAL NORMALIZED RATIO 1.2 RATIO
[2017-09-17 12:31] LABS: BICARBONATE 22.7 MEQ/L (21.0-32.0); CALCIUM 8.2 MG/DL (8.5-10.1); CREATININE 1.28 MG/DL (0.60-1.30)
--- NOTE | 2017-09-17 12:57 | MB ---
cc: TONNY MICHELLE M.D. DATE OF CONSULTATION 09/16/2017 REASON FOR CONSULTATION Stroke. HISTORY OF THE PRESENT ILLNESS Mr. Parry is a 72-year-old man who has a history of HIV positive, hypertension who yesterday developed weakness on the right side with inability to talk. He came in as a stroke alert, however, symptoms began early in the morning. He was outside of the therapeutic window for TPA. He has a history of stroke in the past. PAST MEDICAL HISTORY 1. HIV positive. 2. Hypertension. 3. Stroke with right-sided weakness in 2016. MEDICATIONS At home: 1. Hydrochlorothiazide. 2. Atorvastatin. 3. Amlodipine. 4. Aspirin 325 milligrams daily. 5. Tamsulosin. 6. Atripla. ALLERGIES None known. NEUROLOGIC EXAMINATION VITAL SIGNS: His blood pressure is 178/112, pulse 76, respirations 20, temperature 98 degrees. Higher cortical functions, he is alert. He has got an expressive aphasia. He follows commands. Cranial nerves, there is a right upper motor neuron VII palsy. Other cranial nerves normal. Motor exam he is weak in the right arm and right leg at about 1/5 strength of the right arm, right leg as 2/5. He is strong in the left arm and left leg at 5/5. Reflexes are symmetric and 1+. There is a Babinski on the right. IMAGING CT scan of the brain shows an area of recent infarct in the left occipital and posterior temporal lobe. Older stroke involving the left lateral mid brain. Chronic ischemic change identified. There is no hemorrhage. Neck CTA was limited, no major vessel occlusion. However head CTA occlusion of the proximal left posterior cerebral artery 2 cm from its origin. LABORATORY DATA The white count is 5200, hemoglobin is 10, hematocrit is 32%, platelets 140,000. The sodium is 141, potassium 3.8, CO2 is 23. The BUN is 14, creatinine 1.31, cholesterol 112, LDL 70, HDL 30.5, triglycerides 57. PT 11.0, INR 1.1, APTT 23.2. Telemetry showing sinus rhythm with episodes of atrial fibrillation. IMPRESSION Left hemisphere stroke. The patient was not an IV TPA candidate because of the timing he was well outside the window. He was not a candidate for intervention because the CT angiogram finding of left [employer] INFORMATION [employer]ERK occlusion on the head CT does not correlate with his symptoms which are mainly in the MCA territory. RECOMMENDATIONS Continue aspirin 325 mg daily. Consider anticoagulation the next several days if he is a candidate given his atrial fibrillation. Evaluate further with an MRI and MRA of the brain as well as a echocardiogram. MD ARNIE Calderon/KAMILA /3:34 PM /12:52 PM
[2017-09-17] MEDS ORDERED: NIFEdipine 30 MG SUSTAINED RELEASE TAB PO SCH (14:30)
--- NOTE | 2017-09-17 14:53 | HHI.PR ---
Subjective Remarks seen with family at bedside smiling expressive aphasia episode of NSVT- asymptomatic Objective Vitals Vital Signs Date Time Temp Pulse Resp B/P (MAP) Pulse Ox O2 Delivery O2 Flow Rate FiO2 09/17/17 14:26 75 09/17/17 13:00 98 Nasal Cannula 3.00 09/17/17 12:17 98.8 75 18 170/112 (131) 98 09/17/17 08:49 80 09/17/17 08:15 98.4 75 18 179/121 (140) 98 09/17/17 05:00 101.2 84 19 198/119 (145) 99 09/17/17 00:28 100.4 84 19 187/107 (133) 94 09/16/17 21:00 87 09/16/17 20:46 100.1 98 18 181/121 (141) 93 189/121 (143) 09/16/17 17:39 95 Nasal Cannula 2.00 09/16/17 16:28 98.7 89 20 181/114 (136) 95 I/O 09/16/17 09/16/17 09/16/17 09/17/17 09/17/17 09/17/17 07:00 15:00 23:00 07:00 15:00 23:00 Intake Total 0 ml 1000 ml 360 ml 60 ml 990 ml Balance 0 ml 1000 ml 360 ml 60 ml 990 ml Intake Oral 0 ml 360 ml 60 ml IV Total 1000 ml 990 ml # Voids 3 2 3 # Bowel Movements 2 1 Result Diagram: 09/17/17 1030 09/17/17 1145 Imaging Last Impressions Chest X-Ray 09/16/17 0000 Signed Impressions: Service Date/Time: Saturday, September 16, 2017 16:54 - CONCLUSION: 1. Mild cardiomegaly with diffuse nodular interstitial prominence which may reflect atypical pulmonary edema or atypical infection in this patient with history of HIV. 2. Left lower lung zone airspace disease and volume loss concerning for pneumonia. David Soares MD Neck CTA [id number] Signed Impressions: Service Date/Time: Friday, September 15, 2017 17:18 - CONCLUSION: Extremely limited CT of the head. The major vessels are patent. 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 The more distal branches do fill via collaterals. Damion Elliott MD Head CT 09/15/17 0000 Signed Impressions: Service Date/Time: Friday, September 15, 2017 17:04 - CONCLUSION: 1. Area of recent infarction involving the left occipital and posterior temporal lobes. 2. Older infarction involving the anterior left lateral midbrain. 3. Underlying suspected small vessel ischemic change in the white matter. Damion Elliott MD Objective Remarks awake and alert, + expressive aphasia anicteric + mild facial asymmetry tongue midline-+ gag no nuchal rigidity lungs- no rales regular rhythm- sinus with occasional PAC abdomen soft, nontender extremities left sided plegia A/P Assessment and Plan 72 year old right-handed male who is HIV+ and with HTN, previous stroke in 2016 who presented as a stoke alert in ED with complaints of dysarthria, and right- sided face, arm, and leg weakness. Initially it was unclear the time of onset of symptoms. NIH stroke scale was found to be 22. Patient was rushed to CT scan which demonstrated an infarct which likely occurred more than 6 hours ago. His symptoms started when he woke up this morning and at 10 AM his speech symptoms started which places him outside of a 6 hour window for intervention. Based on this patient is not a TPA candidate. CT demonstrates infarction in the left occipital and posterior temporal lobes. Neuro consulted as well as cardiology Acute CVA (cerebral vascular accident) involving left occipital and temporal lobe history of previous CVA per friend at bedside - still ambulates independently occasionally uses a cane - Head CT acute infarction on left occipital and and inferior temporal lobe. Old infarction anterior left lat midbrain - Neck CTA reviewed patent major vessels, however limited study - Head CTA reviewed and findings discussed with ED physician Occlusion of proximal left [employer] V[employer] 2 cm from its origin - Neurology consulted, appreciate recommendations - PT/OT consult. speech therapy - swallowing and speech therapy- mechanical soft with thin liquids - Neuro checks q4 hours Episode of NSVT 09/17- mild elevated troponin in the setting of CVA on admission Uncotnrolled HYpertension HYperlipidemia - check troponin now - if further elevation- reconsult cardiology -EKG reviewed with ST changes in leads II, III, aVF and with RBBB, LAD, LAHB - Aspirin 325mg daily - Lipitor 40mg po qhs - on metoprolol 25 mg po bid, - increase to 50 mg po q 8- had episode of runs of SVT -- - cardiology ff - ECHO ordered - EF 50%. consider NERIS for additional BP control if creatinine continues to improve - 48 hours Holter monitoring- or event loop recorder if deemed necessary by Cardiology - Clonidine prn for SBP > 180 HIV (human immunodeficiency virus infection) - Patient had seen hematology/oncology about ~11 years ago and diagnosed with HIV - Will need to establish care to be provided as an outpatient Acute KI r/o underlying CKI -start on gentle fluids- de reased rate. monitor po intake - creatinine improve - non oliguric UTI - on Levaquin 500 mg IV Iron deficiency anemia - Ferrous sulfate 325 mg po bid On Heparin SQ q12 Mercedes Johnson MD Sep 17, 2017 14:53
[2017-09-17] MEDS ORDERED: LEVOFLOXACIN 500 MG PREMIX INJ 100 ML IV SCH (15:00)
--- NOTE | 2017-09-17 17:25 | RADRPT ---
EXAM DATE/TIME: 09/17/2017 16:15 [facility] COMPARISON: US KIDNEY/RENAL/BLADDER, June 21, 2016, 8:38. INDICATIONS : Hematuria. MEDICAL HISTORY : Hypercholesterolemia. Hypertension. Cerebrovascular accident. Urinary retention. Arthritis. HIV. Impotence. SURGICAL HISTORY : Orthopedic surgery, unspecified. ENCOUNTER: Initial ACUITY: 2 days PAIN SCORE: 0/10 LOCATION: Bilateral flank MEASUREMENTS: RIGHT KIDNEY: 11.0 x 5.8 x 4.4 cm LEFT KIDNEY: 10.0 x 5.4 x 5.2 cm FINDINGS: RIGHT KIDNEY: Renal cortex is normal in thickness and echotexture. No hydronephrosis, stone, or mass. LEFT KIDNEY: Renal cortex is normal in thickness and echotexture. No hydronephrosis, stone, or mass. BLADDER: The urinary bladder is not dilated. Echogenic non-shadowing material is seen layering within the depe ndent portion of the urinary bladder. This is small in volume. No large bladder stones. CONCLUSION: 1. Small amount of layering debris within the urinary bladder. Otherwise, unremarkable exam. Jonathan Lou Jr., MD on September 17, 2017 at 17:16 Board Certified Radiologist. This report was verified electronically.
--- NOTE | 2017-09-17 17:26 | RADRPT ---
EXAM DATE/TIME: 09/17/2017 16:55 [facility] COMPARISON: MRA BRAIN W/O CONTRAST, June 20, 2016, 11:24. CTA CAROTID ARTERIES W 3D RECON, September 15, 17:18. INDICATIONS : Stroke. MEDICAL HISTORY : Hypertension. SURGICAL HISTORY : Fusion, lumbar. ENCOUNTER: Subsequent ACUITY: 1 day PAIN SCORE: Nonresponsive. LOCATION: cranial Please note a normal MRA of the brain does not entirely exclude the possibility of a small aneurysm, nor the possibility of distal intracranial vessel disease. TECHNIQUE: 3D time of flight MRA was performed. Source images, multiplanar STS MIP, and 3D volume MIP reconstru ctions were reviewed. FINDINGS: There is excellent visualization of the major intracranial arteries out to the second-order branch ve ssels. There is no evidence for aneurysm, vessel truncation or stenosis, and no evidence for vascula r malformation. The distal right vertebral artery is diffusely narrowed. Its unchanged 2016. The internal carotid art eries are patent. The internal carotid bifurcations are unremarkable. The anterior cerebral system is unremarkable and stable. There is a patent right communicating artery CONCLUSION: Stable exam since 2015. No aneurysms identified. Patent right posterior communicating artery. Continu ed narrowing of the distal right vertebral artery unchanged. Jhon Horner MD on September 17, 2017 at 17:22 Board Certified Radiologist. This report was verified electronically.
--- NOTE | 2017-09-17 17:42 | RADRPT ---
EXAM DATE/TIME: 09/17/2017 16:55 [facility] COMPARISON: MRI BRAIN W/O CONTRAST, June 20, 2016, 11:24. INDICATIONS : CVA. MEDICAL HISTORY : Hypertension. SURGICAL HISTORY : Fusion, lumbar. ENCOUNTER: Subsequent ACUITY: 1 day PAIN SCORE: Nonresponsive. LOCATION: cranial TECHNIQUE: Multiplanar, multisequence MRI of the brain was performed without contrast. FINDINGS: CEREBRUM: The ventricles are normal for age. No evidence of midline shift, mass lesion, hemorrhage or acute in farction. No extraaxial fluid collections are seen. The pituitary gland and suprasellar cistern are normal in configuration. WHITE MATTER: Marked ischemic demyelinization change. POSTERIOR FOSSA: There is an old stroke in the left xiang. The 4th ventricle is midline. The cerebellopontine angle is unremarkable. The cerebellar tonsils are normal in position. DIFFUSION IMAGING: There is a triangle shaped area of increased signal involving the inferior right cerebellar hemispher e measuring 4.0 x 2.7 cm. There is a larger area of abnormal signal involving the medial left tempora l lobe and the anterior occipital lobes measuring 7.8 x 3.7 cm across. In the left thalamus the lesio n measures 0.8 x 1.5 cm. In the corpus callosum posteriorly on the left is an additional 10 x 5 mm ar ea of abnormal signal. There a few small areas in the high left parietal region along the great matter old new since 2016 travis spicious for acute strokes EXTRACRANIAL: The visualized portions of the orbits and paranasal sinuses are unremarkable. CONCLUSION: Multiple abnormal areas of signal scattered throughout the brain including infra-and supratentorially consistent multifocal strokes. I don't see any evidence of hemorrhage. Jhon Horner MD on September 17, 2017 at 17:36 Board Certified Radiologist. This report was verified electronically.
[2017-09-17] MEDS: FERROUS SULFATE 325 MG (65 MG ELEMENTAL IRON) TAB PO SCH (17:51)
--- NOTE | 2017-09-17 19:35 | PD.CARD.PN ---
Subjective Subjective Remarks Covering for Dr. Gonzalez Called for elevated troponin Seeing the patient, he is aphasic But able to answer simple questions No chest pain/SOB at this time Telemetry review 5 beat wide complex tachycardia with R-R variability, most likely Afib with aberrancy Objective Medications Current Medications Medications (Trade) Dose Ordered Sig/Eyal Route Start Time Stop Time Status Last Admin (Vasotec Inj) 1.25 mg Q4H PRN IV PUSH 09/15/17 18:45 (Trandate Inj) 10 mg Q2H PRN IV PUSH 09/15/17 18:45 09/15/17 18:54 (Pravachol) 40 mg HS PO 09/15/17 21:00 09/16/17 20:53 (Heparin Inj) 5,000 units Q12H SQ 09/15/17 21:00 09/17/17 09:33 (Microzide) 12.5 mg DAILY PO 09/16/17 09:15 09/17/17 09:33 (NS Flush) 2 ml BID IV FLUSH 09/16/17 21:00 09/17/17 09:33 (NS Flush) 2 ml UNSCH PRN IV FLUSH 09/16/17 15:45 Sodium Chloride 1,000 ml @ 30 mls/hr Q24H IV 09/16/17 15:38 09/17/17 07:35 (Aspirin) 325 mg DAILY PO 09/16/17 15:45 09/17/17 09:33 (NovoLOG SUPPLEMENTAL SCALE) 1 ACHS SQ 09/16/17 17:00 (D50w (Vial) Inj) 50 ml UNSCH PRN IV PUSH 09/16/17 15:45 (Glucagon Inj) 1 mg UNSCH PRN OTHER 09/16/17 15:45 (Tylenol) 650 mg Q4H PRN PO 09/16/17 21:00 09/17/17 05:45 (Catapres) 0.1 mg Q6H PRN PO 09/17/17 14:30 (Ferrous Sulfate) 325 mg BID@,17 PO 09/17/17 17:00 09/17/17 17:51 Levofloxacin/ Dextrose 100 ml @ 100 mls/hr Q24H IV 09/17/17 15:00 09/17/17 15:40 (Flomax) 0.4 mg DAILY PO 09/18/17 09:00 (Lopressor) 50 mg Q8HR PO 09/17/17 15:30 09/17/17 15:39 (Truvada 200-300 Mg) 1 tab HS PO 09/18/17 21:00 (Sustiva) 600 mg HS PO 09/18/17 21:00 Vital Signs / I&O Vital Signs Date Time Temp Pulse Resp B/P (MAP) Pulse Ox O2 Delivery O2 Flow Rate FiO2 09/17/17 18:07 100 Nasal Cannula 3.00 09/17/17 17:03 77 09/17/17 16:00 99.3 77 18 190/116 (140) 100 09/17/17 14:26 75 09/17/17 13:00 98 Nasal Cannula 3.00 09/17/17 12:17 98.8 75 18 170/112 (131) 98 09/17/17 08:49 80 09/17/17 08:15 98.4 75 18 179/121 (140) 98 09/17/17 05:00 101.2 84 19 198/119 (145) 99 09/17/17 00:28 100.4 84 19 187/107 (133) 94 09/16/17 21:00 87 09/16/17 20:46 100.1 98 18 181/121 (141) 93 189/121 (143) I/O 09/16/17 09/16/17 09/16/17 09/17/17 09/17/17 09/17/17 07:00 15:00 23:00 07:00 15:00 23:00 Intake Total 0 ml 1000 ml 360 ml 60 ml 1470 ml 758 ml Output Total 500 ml Balance 0 ml 1000 ml 360 ml 60 ml 970 ml 758 ml Intake Oral 0 ml 360 ml 60 ml 480 ml IV Total 1000 ml 990 ml 758 ml Output Urine Total 500 ml # Voids 3 2 3 # Bowel Movements 2 1 Physical Exam GENERAL: NAD, alert and awake SKIN: Warm and dry. HEAD: Atraumatic. Normocephalic. EYES: Pupils equal and round. No scleral icterus. No injection or drainage. ENT: No nasal bleeding or discharge. Mucous membranes pink and moist. NECK: Trachea midline. No JVD. CARDIOVASCULAR: Regular rate and rhythm. RESPIRATORY: No accessory muscle use. Clear to auscultation. Breath sounds equal bilaterally. GASTROINTESTINAL: Abdomen soft, non-tender, nondistended. Hepatic and splenic margins not palpable. MUSCULOSKELETAL: Extremities without clubbing, cyanosis, or edema. No obvious deformities. NEUROLOGICAL: Awake and alert. Right sided flaccid. Expressive aphasia Laboratory Laboratory Tests Test 09/17/17 07:44 09/17/17 08:13 09/17/17 10:30 09/17/17 11:45 Blood Urea Nitrogen 15 MG/DL 14 MG/DL Creatinine 1.33 MG/DL 1.28 MG/DL Random Glucose 89 MG/DL 100 MG/DL Calcium Level 8.0 MG/DL 8.2 MG/DL Sodium Level 141 MEQ/L 139 MEQ/L Potassium Level 3.9 MEQ/L 3.9 MEQ/L Chloride Level 108 MEQ/L 110 MEQ/L Carbon Dioxide Level 22.7 MEQ/L 22.7 MEQ/L Anion Gap 10 MEQ/L 6 MEQ/L Estimat Glomerular Filtration Rate 64 ML/MIN 67 ML/MIN Iron Level 24 MCG/DL Total Iron Binding Capacity 374 MCG/DL Percent Iron Saturation 6.4 % Ferritin 24 NG/ML Urine Color DARK-RED Urine Turbidity MARKED Urine pH 8.0 Urine Specific [place] 1.017 Urine Protein 300 mg/dL Urine Glucose (UA) NEG mg/dL Urine Ketones TRACE mg/dL Urine Occult Blood LARGE Urine Nitrite NEG Urine Bilirubin NEG Urine Urobilinogen LESS THAN 2.0 MG/DL Urine Leukocyte Esterase MOD Urine RBC /hpf Urine WBC 86 /hpf Urine Amorphous Sediment OCC Urine Bacteria MANY /hpf Urine Mucus MANY /lpf Microscopic Urinalysis Comment CULTURE INDICATED Urine Opiates Screen NEG Urine Barbiturates Screen NEG Urine Amphetamines Screen NEG Urine Benzodiazepines Screen NEG Urine Cocaine Screen NEG Urine Cannabinoids Screen NEG White Blood Count 5.6 TH/MM3 Red Blood Count 4.44 MIL/MM3 Hemoglobin 10.2 GM/DL Hematocrit 32.2 % Mean Corpuscular Volume 72.5 FL Mean Corpuscular Hemoglobin 23.1 PG Mean Corpuscular Hemoglobin Concent 31.8 % Red Cell Distribution Width 17.1 % Platelet Count 138 TH/MM3 Mean Platelet Volume 10.2 FL Prothrombin Time 12.0 SEC Prothromb Time International Ratio 1.2 RATIO Troponin I 1.05 NG/ML Thyroid Stimulating Hormone 3rd Gen 0.649 uIU/ML Assessment and Plan Problem List: (1) CVA (cerebral vascular accident) ICD Codes: I63.9 - Cerebral infarction, unspecified Status: Acute (2) Hypertension ICD Codes: I10 - Essential (primary) hypertension Status: Acute (3) HIV (human immunodeficiency virus infection) ICD Codes: Z21 - Asymptomatic human immunodeficiency virus [HIV] infection status Status: Chronic (4) MARCIN (acute kidney injury) ICD Codes: N17.9 - Acute kidney failure, unspecified Status: Acute (5) Ischemic stroke ICD Codes: I63.9 - Cerebral infarction, unspecified Status: Acute (6) Elevated troponin ICD Codes: R79.89 - Other specified abnormal findings of blood chemistry Status: Acute Assessment and Plan 1) Wide complex tachycardia most likely Afib with aberrancy Agree with BB therapy 2) Elevated troponin Patient currently hemodynamically stable without chest pain Patient is not an invasive candidate due to acute CVA Con't medical management 3) Covering for Dr. Gonzaelz No further cardiovascular work up, will see Martin Coleman DO Sep 17, 2017 19:35
--- NOTE | 2017-09-17 20:43 | EKG ---
Date Performed: 09/17/2017 Time Performed: 18:47:28 PTAGE: 72 years EKG: Sinus rhythm WITH OCCASIONAL SUPRAVENTRICULAR PREMATURE COMPLEXES RIGHT BUNDLE BRANCH BLOCK LEFT ANTERIOR FASCICU LAR BLOCK LEFT VENTRICULAR HYPERTROPHY AND ST-T CHANGE ABNORMAL ECG No significant change from prior electrocardiogram. PREVIOUS TRACING : 09/15/2017 21.02 DOCTOR: Kenyon Kelley Interpretating Date/Time 09/17/2017 20:43:23
[2017-09-17] MEDS: PRAVASTATIN SOD 40 MG TAB PO SCH (22:07)
--- NOTE | 2017-09-17 22:37 | HHI.PR ---
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 Repeat CT brain Saturday and if there is no sign of hemorrhage, would start eliquis. Diagnosis/Plan: Subjective Subjective Comments No acute events reported telemetry shows afib with aberrancy Active Medications Current Medications Medications (Trade) Dose Ordered Sig/Eyal Route Start Time Stop Time Status Last Admin (Vasotec Inj) 1.25 mg Q4H PRN IV PUSH 09/15/17 18:45 (Trandate Inj) 10 mg Q2H PRN IV PUSH 09/15/17 18:45 09/15/17 18:54 (Pravachol) 40 mg HS PO 09/15/17 21:00 09/17/17 22:07 (Heparin Inj) 5,000 units Q12H SQ 09/15/17 21:00 09/17/17 22:17 (Microzide) 12.5 mg DAILY PO 09/16/17 09:15 09/17/17 09:33 (NS Flush) 2 ml BID IV FLUSH 09/16/17 21:00 09/17/17 09:33 (NS Flush) 2 ml UNSCH PRN IV FLUSH 09/16/17 15:45 Sodium Chloride 1,000 ml @ 30 mls/hr Q24H IV 09/16/17 15:38 09/17/17 07:35 (Aspirin) 325 mg DAILY PO 09/16/17 15:45 09/17/17 09:33 (NovoLOG SUPPLEMENTAL SCALE) 1 ACHS SQ 09/16/17 17:00 (D50w (Vial) Inj) 50 ml UNSCH PRN IV PUSH 09/16/17 15:45 (Glucagon Inj) 1 mg UNSCH PRN OTHER 09/16/17 15:45 (Tylenol) 650 mg Q4H PRN PO 09/16/17 21:00 09/17/17 05:45 (Catapres) 0.1 mg Q6H PRN PO 09/17/17 14:30 (Ferrous Sulfate) 325 mg BID@12,17 PO 09/17/17 17:00 09/17/17 17:51 Levofloxacin/ Dextrose 100 ml @ 100 mls/hr Q24H IV 09/17/17 15:00 09/17/17 15:40 (Flomax) 0.4 mg DAILY PO 09/18/17 09:00 (Lopressor) 50 mg Q8HR PO 09/17/17 15:30 09/17/17 22:07 (Truvada 200-300 Mg) 1 tab HS PO 09/18/17 21:00 (Sustiva) 600 mg HS PO 09/18/17 21:00 Allergies Allergies Coded Allergies No Known Allergies (Verified Allergy, Unknown, 09/15/17) Exam I&O / VS 09/17/17 09/17/17 09/18/17 15:00 23:00 07:00 Intake Total 1470 ml 758 ml Output Total 500 ml Balance 970 ml 758 ml Intake Oral 480 ml IV Total 990 ml 758 ml Output Urine Total 500 ml Vital Signs Date Time Temp Pulse Resp B/P (MAP) Pulse Ox O2 Delivery O2 Flow Rate FiO2 09/17/17 20:00 99.8 86 20 205/130 (155) 100 09/17/17 18:07 100 Nasal Cannula 3.00 09/17/17 17:03 77 09/17/17 16:00 99.3 77 18 190/116 (140) 100 09/17/17 14:26 75 09/17/17 13:00 98 Nasal Cannula 3.00 09/17/17 12:17 98.8 75 18 170/112 (131) 98 09/17/17 08:49 80 09/17/17 08:15 98.4 75 18 179/121 (140) 98 09/17/17 05:00 101.2 84 19 198/119 (145) 99 09/17/17 00:28 100.4 84 19 187/107 (133) 94 Exam Comments alert. expressive aphasia. follows commands CN--right upper motor neuron CN 7 palsey MOTOR 0/5 RUE, 1/5 RLE. 5/5 LUE and LLE Objective Radiology Results MRI brain--multiple strokes in bilateral different vascular territories c/w embolic strokes Micro and Labs Laboratory Tests Test 09/17/17 07:44 09/17/17 08:13 09/17/17 10:30 09/17/17 11:45 Blood Urea Nitrogen 15 14 Creatinine 1.33 1.28 Random Glucose 89 100 Calcium Level 8.0 8.2 Sodium Level 141 139 Potassium Level 3.9 3.9 Chloride Level 108 110 Carbon Dioxide Level 22.7 22.7 Anion Gap 10 6 Estimat Glomerular Filtration Rate 64 67 Iron Level 24 Total Iron Binding Capacity 374 Percent Iron Saturation 6.4 Ferritin 24 Urine Color DARK-RED Urine Turbidity MARKED Urine pH 8.0 Urine Specific [place] 1.017 Urine Protein 300 Urine Glucose (UA) NEG Urine Ketones TRACE Urine Occult Blood LARGE Urine Nitrite NEG Urine Bilirubin NEG Urine Urobilinogen LESS THAN 2.0 Urine Leukocyte Esterase MOD Urine RBC Urine WBC 86 Urine Amorphous Sediment OCC Urine Bacteria MANY Urine Mucus MANY Microscopic Urinalysis Comment CULTURE INDICATED Urine Opiates Screen NEG Urine Barbiturates Screen NEG Urine Amphetamines Screen NEG Urine Benzodiazepines Screen NEG Urine Cocaine Screen NEG Urine Cannabinoids Screen NEG White Blood Count 5.6 Red Blood Count 4.44 Hemoglobin 10.2 Hematocrit 32.2 Mean Corpuscular Volume 72.5 Mean Corpuscular Hemoglobin 23.1 Mean Corpuscular Hemoglobin Concent 31.8 Red Cell Distribution Width 17.1 Platelet Count 138 Mean Platelet Volume 10.2 Prothrombin Time 12.0 Prothromb Time International Ratio 1.2 Troponin I 1.05 Thyroid Stimulating Hormone 3rd Gen 0.649 Date/Time Source Procedure Growth Status 09/17/17 15:06 Blood Peripheral Aerobic Blood Culture Pending Received 09/17/17 15:06 Blood Peripheral Anaerobic Blood Culture Pending Received 09/17/17 08:13 Urine Clean Catch Urine Culture Pending Received Diagnostic Tests ECHO--Consistent with PFO Anoop Valencia PhD Sep 17, 2017 22:36
[2017-09-17] MEDS: ATORVASTATIN 10 MG TAB PO SCH (23:50)
[2017-09-18] VITALS (13 sets, daily range): BP systolic 120–194; BP diastolic 85–115; PULSE 61–78; RESP 18–20; TEMP 97.4–100.8; O2SAT 97–100
[2017-09-18] MEDS: SODIUM CHLOR 0.9% 1000 ML INJ 1,000 ML IV SCH (01:26)
[2017-09-18] MEDS: cloNIDine HCL 0.1 MG TAB PO PRN (01:37)
[2017-09-18] MEDS: METOPROLOL TARTRATE 50 MG TAB PO SCH ×3 (05:55→21:22)
[2017-09-18] MEDS: INSULIN ASPART SUPPLEMENTAL SCALE SQ SCH ×4 (08:00→21:00)
[2017-09-18] MEDS ORDERED: NON-FORMULARY DRUG (Efavirenz-Emtricitabine-Tenofovir (Atripla) 1 TAB) PO SCH (09:00)
[2017-09-18] MEDS: SODIUM CHLORIDE 0.9% FLUSH 10 ML FLUSH IV FLUSH SCH ×2 (09:00→21:24)
[2017-09-18] MEDS: ACETAMINOPHEN 325 MG TAB PO PRN (09:53)
[2017-09-18] MEDS: TAMSULOSIN HCL 0.4 MG CAP PO SCH (09:53)
[2017-09-18] MEDS: HYDROCHLOROTHIAZIDE 12.5 MG CAP PO SCH (09:53)
[2017-09-18] MEDS: HEPARIN SODIUM - SQ 10,000 UNITS/ML VIAL SQ SCH ×2 (09:54→21:22)
[2017-09-18] MEDS: ASPIRIN 325 MG TAB PO SCH (09:59)
--- NOTE | 2017-09-18 11:03 | RADRPT ---
EXAM DATE/TIME: 09/18/2017 10:30 [facility] COMPARISON: MRI BRAIN W/O CONTRAST, September 17, 2017, 16:55. CT BRAIN W/O CONTRAST, September 15, 2017, 17:04. INDICATIONS : Follow up stroke. Evaluate for hemorrhage. RADIATION DOSE: 56.35 CTDIvol (mGy) MEDICAL HISTORY : Cerebrovascular disease. Cardiovascular disease Hypertension. SURGICAL HISTORY : None. ENCOUNTER: Subsequent ACUITY: 3 days PAIN SCALE: Non-responsive LOCATION: cranial TECHNIQUE: Multiple contiguous axial images were obtained of the head. Using automated exposure control and adj ustment of the mA and/or kV according to patient size, radiation dose was kept as low as reasonably a chievable to obtain optimal diagnostic quality images. DICOM format image data is available electro nically for review and comparison. FINDINGS: Evolving infarct left occipital region with mild increase in edema without hemorrhage. Moderate raz ventricular white matter changes in both hemispheres. Evolving infarct right hemisphere without hemo rrhage. Ventricle size appropriate. Moderate periventricular white matter changes. CONCLUSION: Evolving infarcts left occipital region and right cerebellar hemisphere without hemor rhage. Mild increase in edema. Rob Watters MD FACR on September 18, 2017 at 10:59 Board Certified Radiologist. This report was verified electronically.
[2017-09-18] MEDS: NIFEdipine 30 MG SUSTAINED RELEASE TAB PO SCH (11:15)
--- NOTE | 2017-09-18 15:03 | HHI.PR ---
Subjective Remarks awake and alert, denies any pain stated his name mild expressive aphasia telemetry reviewed- paroxysmal a fib - over all rate controlled Objective Vitals Vital Signs Date Time Temp Pulse Resp B/P (MAP) Pulse Ox O2 Delivery O2 Flow Rate FiO2 09/18/17 12:00 99.3 61 18 165/106 (125) 100 09/18/17 09:56 98 Nasal Cannula 3.00 09/18/17 08:00 100.8 69 18 170/115 (133) 100 09/18/17 06:50 71 171/115 (133) 99 09/18/17 05:03 98.0 73 194/105 (134) 100 09/18/17 05:00 98 3.00 09/18/17 05:00 98 Nasal Cannula 3.00 09/18/17 04:00 97.4 74 18 178/108 (131) 98 09/18/17 03:49 76 09/18/17 00:00 98.2 78 18 168/112 (130) 99 09/17/17 20:30 78 09/17/17 20:00 99.8 86 20 205/130 (155) 100 09/17/17 18:07 100 Nasal Cannula 3.00 09/17/17 17:03 77 09/17/17 16:00 99.3 77 18 190/116 (140) 100 I/O 09/17/17 09/17/17 09/17/17 09/18/17 09/18/17 09/18/17 07:00 15:00 23:00 07:00 15:00 23:00 Intake Total 60 ml 1470 ml 758 ml Output Total 500 ml 450 ml Balance 60 ml 970 ml 758 ml -450 ml Intake Oral 60 ml 480 ml IV Total 990 ml 758 ml Output Urine Total 500 ml 450 ml # Voids 3 2 Result Diagram: 09/17/17 1030 09/17/17 1145 Imaging Last Impressions Renal Ultrasound 09/17/17 0000 Signed Impressions: Service Date/Time: Sunday, September 17, 2017 16:15 - CONCLUSION: 1. Small amount of layering debris within the urinary bladder. Otherwise, unremarkable exam. Jonathan Lou Jr., MD Head Magnetic Resonance Angiography 09/17/17 0000 Signed Impressions: Service Date/Time: Sunday, September 17, 2017 16:55 - CONCLUSION: Stable exam since 2016. No aneurysms identified. Patent right posterior communicating artery. Continued narrowing of the distal right vertebral artery unchanged. Jhon Horner MD Head CT 09/17/17 0000 Signed Impressions: Service Date/Time: Monday, September 18, 2017 10:30 - CONCLUSION: Evolving infarcts left occipital region and right cerebellar hemisphere without hemorrhage. Mild increase in edema. Rob Watters MD FACR Brain MRI 09/17/17 0000 Signed Impressions: Service Date/Time: Sunday, September 17, 2017 16:55 - CONCLUSION: Multiple abnormal areas of signal scattered throughout the brain including infra-and supratentorially consistent multifocal strokes. I don't see any evidence of hemorrhage. Jhon Horner MD Chest X-Ray 09/16/17 0000 Signed Impressions: Service Date/Time: Saturday, September 16, 2017 16:54 - CONCLUSION: 1. Mild cardiomegaly with diffuse nodular interstitial prominence which may reflect atypical pulmonary edema or atypical infection in this patient with history of HIV. 2. Left lower lung zone airspace disease and volume loss concerning for pneumonia. David Soares MD Neck CTA [id number] Signed Impressions: Service Date/Time: Friday, September 15, 2017 17:18 - CONCLUSION: Extremely limited CT of the head. The major vessels are patent. 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 The more distal branches do fill via collaterals. Damion Elliott MD Objective Remarks awake and alert, + expressive aphasia anicteric + mild facial asymmetry tongue midline-+ gag no nuchal rigidity lungs- no rales regular rhythm- sinus with occasional PAC abdomen soft, nontender extremities left sided plegia A/P Assessment and Plan 72 year old right-handed male who is HIV+ and with HTN, previous stroke in 2016 who presented as a stoke alert in ED with complaints of dysarthria, and right- sided face, arm, and leg weakness. Initially it was unclear the time of onset of symptoms. NIH stroke scale was found to be 22. Patient was rushed to CT scan which demonstrated an infarct which likely occurred more than 6 hours ago. His symptoms started when he woke up this morning and at 10 AM his speech symptoms started which places him outside of a 6 hour window for intervention. Based on this patient is not a TPA candidate. CT demonstrates infarction in the left occipital and posterior temporal lobes. Neuro consulted as well as cardiology Acute CVA (cerebral vascular accident) involving left occipital and temporal lobe history of previous CVA per friend at bedside 09/17 - still ambulates independently occasionally uses a cane - Head CT acute infarction on left occipital and and inferior temporal lobe. Old infarction anterior left lat midbrain - Neck CTA reviewed patent major vessels, however limited study - head CTA with Occlusion of proximal left PROTOTYPE MACHINIST 2 cm from its origin - PT/OT consult. speech therapy - swallowing and speech therapy- mechanical soft with thin liquids - continue on ASA - Dr. Valencia ff- plan to repeat CT on Saturday- if stable- start OAC- Eliquis Episode of NSVT 09/17- on telemetry- Paroxysmal a fib- rate controlled mild elevated troponin in the setting of CVA on admission Uncotnrolled HYpertension HYperlipidemia - check troponin now - if further elevation- reconsult cardiology -EKG reviewed with ST changes in leads II, III, aVF and with RBBB, LAD, LAHB - Aspirin 325mg daily - Lipitor 40mg po qhs -=increase to 50 mg po q 8- had episode of runs of SVT --09/17- rate controlled - Add Procardia 30 mg XL for BP control. continue on HCTZ - ECHO ordered - EF 50%. - Clonidine prn for SBP > 180 HIV (human immunodeficiency virus infection) - Patient had seen hematology/oncology about ~11 years ago and diagnosed with HIV - Will need to establish care to be provided as an outpatient Acute KI r/o underlying CKI -start on gentle fluids- de reased rate. monitor po intake - creatinine improve - non oliguric Lung Infilatrate on CXR- left- possible aspiration scenario based on clinical status and location start on augmentin 875 mg po bid Pyuria- final C and s- Lactobacillus- nomral kristie Discontinue Levaquin Iron deficiency anemia - Ferrous sulfate 325 mg po bid On Heparin SQ q12 CM consulted- referral to Mercedes Faria MD Sep 18, 2017 15:03
[2017-09-18] MEDS: FERROUS SULFATE 325 MG (65 MG ELEMENTAL IRON) TAB PO SCH ×2 (15:28→18:08)
[2017-09-18] MEDS: AMOXICILLIN/CLAVULANATE K 875 MG TAB PO SCH ×2 (17:00→21:20)
[2017-09-18] MEDS ORDERED: INFLUENZA VIRUS VACCINE (QUADRIVALENT) 0.5 ML SYR IM ONE (18:30)
--- NOTE | 2017-09-18 18:33 | HHI.PR ---
Review/Management Diagnosis multifocal embolic strokes afib patent PFO Plan Repeat CT brain Saturday. If no hemorrhage, start eliquis Diagnosis/Plan: Subjective Subjective Comments No acute events reported Active Medications Current Medications Medications (Trade) Dose Ordered Sig/Eyal Route Start Time Stop Time Status Last Admin (Vasotec Inj) 1.25 mg Q4H PRN IV PUSH 09/15/17 18:45 (Trandate Inj) 10 mg Q2H PRN IV PUSH 09/15/17 18:45 09/15/17 18:54 (Pravachol) 40 mg HS PO 09/15/17 21:00 09/17/17 22:07 (Heparin Inj) 5,000 units Q12H SQ 09/15/17 21:00 09/18/17 09:54 (Microzide) 12.5 mg DAILY PO 09/16/17 09:15 09/18/17 09:53 (NS Flush) 2 ml BID IV FLUSH 09/16/17 21:00 09/17/17 09:33 (NS Flush) 2 ml UNSCH PRN IV FLUSH 09/16/17 15:45 Sodium Chloride 1,000 ml @ 30 mls/hr Q24H IV 09/16/17 15:38 09/18/17 01:26 (Aspirin) 325 mg DAILY PO 09/16/17 15:45 09/18/17 09:59 (NovoLOG SUPPLEMENTAL SCALE) 1 ACHS SQ 09/16/17 17:00 (D50w (Vial) Inj) 50 ml UNSCH PRN IV PUSH 09/16/17 15:45 (Glucagon Inj) 1 mg UNSCH PRN OTHER 09/16/17 15:45 (Tylenol) 650 mg Q4H PRN PO 09/16/17 21:00 09/18/17 09:53 (Catapres) 0.1 mg Q6H PRN PO 09/17/17 14:30 09/18/17 01:37 (Ferrous Sulfate) 325 mg BID@,17 PO 09/17/17 17:00 09/18/17 18:08 (Flomax) 0.4 mg DAILY PO 09/18/17 09:00 09/18/17 09:53 (Lopressor) 50 mg Q8HR PO 09/17/17 15:30 09/18/17 15:28 (Truvada 200-300 Mg) 1 tab HS PO 09/18/17 21:00 (Sustiva) 600 mg HS PO 09/18/17 21:00 (Lipitor) 10 mg HS PO 09/17/17 22:40 09/17/17 23:50 (Procardia Xl) 30 mg DAILY PO 09/18/17 11:15 09/18/17 11:15 (Augmentin) 875 mg Q12HR PO 09/18/17 17:00 09/18/17 17:00 (Pneumovax-23 Inj) 25 mcg ONCE ONCE IM 09/19/17 10:00 09/19/17 10:01 Allergies Allergies Coded Allergies No Known Allergies (Verified Allergy, Unknown, 09/15/17) Exam I&O / VS Vital Signs Date Time Temp Pulse Resp B/P (MAP) Pulse Ox O2 Delivery O2 Flow Rate FiO2 09/18/17 17:52 100 Nasal Cannula 3.00 09/18/17 12:00 99.3 61 18 165/106 (125) 100 09/18/17 09:56 98 Nasal Cannula 3.00 09/18/17 08:00 100.8 69 18 170/115 (133) 100 09/18/17 07:00 71 09/18/17 06:50 71 171/115 (133) 99 09/18/17 05:03 98.0 73 194/105 (134) 100 09/18/17 05:00 98 3.00 09/18/17 05:00 98 Nasal Cannula 3.00 09/18/17 04:00 97.4 74 18 178/108 (131) 98 09/18/17 03:49 76 09/18/17 00:00 98.2 78 18 168/112 (130) 99 09/17/17 20:30 78 09/17/17 20:00 99.8 86 20 205/130 (155) 100 Exam Comments alert. expressive aphasia is improving and now able to say his name and repeat simple phrases. follows commands CN--right upper motor neuron CN 7 palsey MOTOR 1/5 RUE, 2/5 RLE. 5/5 LUE and LLE Objective Micro and Labs Date/Time Source Procedure Growth Status 09/17/17 15:06 Blood Peripheral Aerobic Blood Culture - Preliminary NO GROWTH IN 1 DAY Resulted 09/17/17 15:06 Blood Peripheral Anaerobic Blood Culture - Preliminary NO GROWTH IN 1 DAY Resulted 09/17/17 08:13 Urine Clean Catch Urine Culture - Final Lactobacillus Species Complete Anoop Valencia PhD Sep 18, 2017 18:33
[2017-09-18] MEDS: PRAVASTATIN SOD 40 MG TAB PO SCH (21:20)
[2017-09-18] MEDS: EMTRICITABINE/TENOFOVIR 200 MG/300 MG TAB PO SCH (21:20)
[2017-09-18] MEDS: ATORVASTATIN 10 MG TAB PO SCH (21:22)
[2017-09-19] VITALS (9 sets, daily range): BP systolic 139–173; BP diastolic 94–116; PULSE 67–77; RESP 18–22; TEMP 98.1–99.5; O2SAT 98–100
[2017-09-19] MEDS: SODIUM CHLOR 0.9% 1000 ML INJ 1,000 ML IV SCH ×2 (03:16→23:18)
[2017-09-19] MEDS: METOPROLOL TARTRATE 50 MG TAB PO SCH ×3 (05:56→21:17)
[2017-09-19] MEDS: cloNIDine HCL 0.1 MG TAB PO PRN ×2 (06:34→21:24)
--- NOTE | 2017-09-19 07:03 | RADRPT ---
EXAM DATE/TIME: 09/19/2017 06:47 [facility] COMPARISON: CHEST SINGLE AP, September 16, 2017, 16:54. INDICATIONS : Fever starting today MEDICAL HISTORY : Cardiovascular disease. HIV,CVA SURGICAL HISTORY : None. ENCOUNTER: Initial ACUITY: 1 day PAIN SCORE: Non-responsive. LOCATION: Bilateral chest FINDINGS: There is cardiomegaly and patchy bilateral airspace disease again seen this is greatest in the left l ower lobe. No effusions. Osseous structures are intact. CONCLUSION: No significant change has occurred. Deniz Castaneda MD on September 19, 2017 at 7:01 Board Certified Radiologist. This report was verified electronically.
[2017-09-19] MEDS: INSULIN ASPART SUPPLEMENTAL SCALE SQ SCH ×4 (08:00→21:00)
[2017-09-19] MEDS: ASPIRIN 325 MG TAB PO SCH (08:57)
[2017-09-19] MEDS: HYDROCHLOROTHIAZIDE 12.5 MG CAP PO SCH (08:57)
[2017-09-19] MEDS: HEPARIN SODIUM - SQ 10,000 UNITS/ML VIAL SQ SCH ×2 (08:57→13:03)
[2017-09-19] MEDS: AMOXICILLIN/CLAVULANATE K 875 MG TAB PO SCH ×2 (08:57→21:17)
[2017-09-19] MEDS: TAMSULOSIN HCL 0.4 MG CAP PO SCH (08:57)
[2017-09-19] MEDS: NIFEdipine 30 MG SUSTAINED RELEASE TAB PO SCH (08:57)
[2017-09-19] MEDS: SODIUM CHLORIDE 0.9% FLUSH 10 ML FLUSH IV FLUSH SCH ×2 (09:00→21:16)
--- NOTE | 2017-09-19 09:58 | HHI.PR ---
Subjective Remarks smiled but less interactive-compared to yesterday's exam, no verbal output drowsy Objective Vitals Vital Signs Date Time Temp Pulse Resp B/P (MAP) Pulse Ox O2 Delivery O2 Flow Rate FiO2 09/19/17 08:00 99.5 68 18 167/107 (127) 100 09/19/17 04:00 98.2 77 18 173/116 (135) 100 09/19/17 00:00 98.2 70 20 150/94 (112) 99 09/18/17 20:00 98.2 66 20 140/89 (106) 100 09/18/17 17:52 100 Nasal Cannula 3.00 09/18/17 16:00 99.0 69 18 120/85 (97) 97 09/18/17 12:00 99.3 61 18 165/106 (125) 100 09/18/17 09:56 98 Nasal Cannula 3.00 I/O 09/18/17 09/18/17 09/18/17 09/19/17 09/19/17 09/19/17 07:00 15:00 23:00 07:00 15:00 23:00 Output Total 450 ml Balance -450 ml Output Urine Total 450 ml # Voids 2 3 Result Diagram: 09/17/17 1030 09/17/17 1145 Imaging Last Impressions Chest X-Ray 09/19/17 0600 Signed Impressions: Service Date/Time: August 06:47 - CONCLUSION: No significant change has occurred. Deniz Castaneda MD Renal Ultrasound 09/17/17 0000 Signed Impressions: Service Date/Time: Sunday, September 17, 2017 16:15 - CONCLUSION: 1. Small amount of layering debris within the urinary bladder. Otherwise, unremarkable exam. Jonathan Lou Jr., MD Head Magnetic Resonance Angiography 09/17/17 0000 Signed Impressions: Service Date/Time: Sunday, September 17, 2017 16:55 - CONCLUSION: Stable exam since 2016. No aneurysms identified. Patent right posterior communicating artery. Continued narrowing of the distal right vertebral artery unchanged. Jhon Horner MD Head CT 09/17/17 0000 Signed Impressions: Service Date/Time: Monday, September 18, 2017 10:30 - CONCLUSION: Evolving infarcts left occipital region and right cerebellar hemisphere without hemorrhage. Mild increase in edema. Rob Watters MD FACR Brain MRI 09/17/17 0000 Signed Impressions: Service Date/Time: Sunday, September 17, 2017 16:55 - CONCLUSION: Multiple abnormal areas of signal scattered throughout the brain including infra-and supratentorially consistent multifocal strokes. I don't see any evidence of hemorrhage. Jhon Horner MD Neck CTA 09/15/17 1659 Signed Impressions: Service Date/Time: Friday, September 15, 2017 17:18 - CONCLUSION: Extremely limited CT of the head. The major vessels are patent. 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 The more distal branches do fill via collaterals. Damion Elliott MD Objective Remarks awake, aphasia ,ff commands but less interactive compared to yesterday anicteric + mild facial asymmetry tongue midline-+ gag no nuchal rigidity lungs- no rales regular rhythm- sinus with occasional PAC abdomen soft, nontender extremities left sided plegia A/P Assessment and Plan 72 year old right-handed male who is HIV+ and with HTN, previous stroke in 2016 who presented as a stoke alert in ED with complaints of dysarthria, and right- sided face, arm, and leg weakness. Initially it was unclear the time of onset of symptoms. NIH stroke scale was found to be 22. Patient was rushed to CT scan which demonstrated an infarct which likely occurred more than 6 hours ago. His symptoms started when he woke up this morning and at 10 AM his speech symptoms started which places him outside of a 6 hour window for intervention. Based on this patient is not a TPA candidate. CT demonstrates infarction in the left occipital and posterior temporal lobes. Neuro consulted as well as cardiology Acute CVA (cerebral vascular accident) involving left occipital and temporal lobe - Decrease in MS on exam this am 09/19 history of previous CVA per friend at bedside 09/17 - still ambulates independently occasionally uses a cane - Head CT acute infarction on left occipital and and inferior temporal lobe. Old infarction anterior left lat midbrain - Neck CTA reviewed patent major vessels, however limited study - head CTA with Occlusion of proximal left NEUROLOGY EPILEPSY PHYSICIAN 2 cm from its origin - PT/OT consult. speech therapy - swallowing and speech therapy- mechanical soft with thin liquids - continue on ASA - STAT head CT now- check for swelling, new infarction - check stat BS and CMP - d/w Dr. Valencia ff- Episode of NSVT 09/17- on telemetry- Paroxysmal a fib- rate controlled mild elevated troponin in the setting of CVA on admission Uncotnrolled HYpertension HYperlipidemia - telemetry- sinus with PACs- rate controlled -EKG reviewed with ST changes in leads II, III, aVF and with RBBB, LAD, LAHB - Aspirin 325mg daily - Lipitor 40mg po qhs -=continue on 50 mg po q 8- had episode of runs of SVT --09/17- rate controlled - Procardia 30 mg XL for BP control. - add diurretics- HCTZ 25 mg po daily - ECHO ordered - EF 50%. - Clonidine prn for SBP > 180 HIV (human immunodeficiency virus infection) - Patient had seen hematology/oncology about ~11 years ago and diagnosed with HIV - Will need to establish care to be provided as an outpatient Acute KI r/o underlying CKI -start on gentle fluids- de reased rate. monitor po intake - creatinine improve - non oliguric Lung Infilatrate on CXR- left- possible aspiration scenario based on clinical status and location started on augmentin 875 mg po bid Pyuria- final C and s- Lactobacillus- nomral kristie Discontinue Levaquin Iron deficiency anemia - Ferrous sulfate 325 mg po bid On Heparin SQ q12 CM consulted- referral to Alejandro ADD: stat CT shows edema and sulci effacement -start Decadron 4 mg q 8 Mercedes Johnson MD Sep 19, 2017 09:58
[2017-09-19] MEDS ORDERED: PNEUMOCOCCAL POLYVALENT INJ 25 MCG/0.5 ML SYR IM ONE (10:00)
--- NOTE | 2017-09-19 10:43 | HHI.PR ---
Review/Management Diagnosis multifocal embolic strokes--more lethargic and speech impaired more today than yesterday afib patent PFO Plan Stat CT brain today Diagnosis/Plan: Subjective Subjective Comments No acute events reported More lethargic this am, but no new focal SX. Active Medications Current Medications Medications (Trade) Dose Ordered Sig/Eyal Route Start Time Stop Time Status Last Admin (Vasotec Inj) 1.25 mg Q4H PRN IV PUSH 09/15/17 18:45 (Trandate Inj) 10 mg Q2H PRN IV PUSH 09/15/17 18:45 09/15/17 18:54 (Pravachol) 40 mg HS PO 09/15/17 21:00 09/18/17 21:20 (Heparin Inj) 5,000 units Q12H SQ 09/15/17 21:00 09/19/17 08:57 (NS Flush) 2 ml BID IV FLUSH 09/16/17 21:00 09/19/17 09:00 (NS Flush) 2 ml UNSCH PRN IV FLUSH 09/16/17 15:45 Sodium Chloride 1,000 ml @ 30 mls/hr Q24H IV 09/16/17 15:38 09/18/17 01:26 (Aspirin) 325 mg DAILY PO 09/16/17 15:45 09/19/17 08:57 (NovoLOG SUPPLEMENTAL SCALE) 1 ACHS SQ 09/16/17 17:00 09/19/17 08:00 (D50w (Vial) Inj) 50 ml UNSCH PRN IV PUSH 09/16/17 15:45 (Glucagon Inj) 1 mg UNSCH PRN OTHER 09/16/17 15:45 (Tylenol) 650 mg Q4H PRN PO 09/16/17 21:00 09/18/17 09:53 (Catapres) 0.1 mg Q6H PRN PO 09/17/17 14:30 09/19/17 06:34 (Ferrous Sulfate) 325 mg BID@,17 PO 09/17/17 17:00 09/18/17 18:08 (Flomax) 0.4 mg DAILY PO 09/18/17 09:00 09/19/17 08:57 (Lopressor) 50 mg Q8HR PO 09/17/17 15:30 09/19/17 05:56 (Truvada 200-300 Mg) 1 tab HS PO 09/18/17 21:00 09/18/17 21:20 (Sustiva) 600 mg HS PO 09/18/17 21:00 09/18/17 21:22 (Lipitor) 10 mg HS PO 09/17/17 22:40 09/18/17 21:22 (Procardia Xl) 30 mg DAILY PO 09/18/17 11:15 09/19/17 08:57 (Augmentin) 875 mg Q12HR PO 09/18/17 17:00 09/19/17 08:57 (Hydrodiuril) 25 mg DAILY PO 09/19/17 11:00 Allergies Allergies Coded Allergies No Known Allergies (Verified Allergy, Unknown, 09/15/17) Exam I&O / VS 09/19/17 09/19/17 09/20/17 15:00 23:00 07:00 # Voids 3 Vital Signs Date Time Temp Pulse Resp B/P (MAP) Pulse Ox O2 Delivery O2 Flow Rate FiO2 09/19/17 10:03 99 Nasal Cannula 3.00 09/19/17 08:00 99.5 68 18 167/107 (127) 100 09/19/17 04:00 98.2 77 18 173/116 (135) 100 09/19/17 00:00 98.2 70 20 150/94 (112) 99 09/18/17 20:00 98.2 66 20 140/89 (106) 100 09/18/17 17:52 100 Nasal Cannula 3.00 09/18/17 16:00 99.0 69 18 120/85 (97) 97 09/18/17 12:00 99.3 61 18 165/106 (125) 100 Exam Comments More lethargic but arousable. No speech output. able to follow simple commands. CN--right upper motor neuron CN 7 palsey MOTOR 0/5 RUE, 1/5 RLE. 5/5 LUE and LLE Objective Micro and Labs Date/Time Source Procedure Growth Status 09/17/17 15:06 Blood Peripheral Aerobic Blood Culture - Preliminary NO GROWTH IN 1 DAY Resulted 09/17/17 15:06 Blood Peripheral Anaerobic Blood Culture - Preliminary NO GROWTH IN 1 DAY Resulted 09/17/17 08:13 Urine Clean Catch Urine Culture - Final Lactobacillus Species Complete Anoop Valencia PhD Sep 19, 2017 10:43
[2017-09-19] MEDS: HYDROCHLOROTHIAZIDE 25 MG TAB PO SCH (11:00)
--- NOTE | 2017-09-19 11:18 | RADRPT ---
EXAM DATE/TIME: 09/19/2017 10:51 [facility] COMPARISON: MRI BRAIN W/O CONTRAST, September 17, 2017, 16:55. CT BRAIN W/O CONTRAST, September 18, 2017, 10:30. INDICATIONS : Recent acute stroke. Evaluate for edema. RADIATION DOSE: 32.40 CTDIvol (mGy) MEDICAL HISTORY : Cardiovascular disease. Cardiovascular disease Hypertension. SURGICAL HISTORY : None. ENCOUNTER: Subsequent ACUITY: 4 - 6 days PAIN SCALE: 0/10 LOCATION: cranial TECHNIQUE: Multiple contiguous axial images were obtained of the head. Using automated exposure control and adj ustment of the mA and/or kV according to patient size, radiation dose was kept as low as reasonably a chievable to obtain optimal diagnostic quality images. DICOM format image data is available electro nically for review and comparison. FINDINGS: Evolving left temporal-occipital and right cerebellar infarcts. There is overall increased edema in t he left temporo-occipital infarct with increased sulcal effacement but no significant herniation. The right cerebellar hemisphere infarct is stable in size. There is also an evolving left thalamic infar ct which appears unchanged from prior exam. Remainder of exam is stable. There are prominent periventricular white matter hypodensities bilateral ly. Ventricles are stable in size without midline shift. Basilar cisterns are intact. No intercurrent intra-axial or extra-axial hemorrhage. CONCLUSION: 1. Evolving left temporo-occipital, right cerebellar and left thalamic infarcts. There is slight incr eased edema in the left temporo-occipital infarct with increased sulcal effacement but no significant herniation. The right cerebellar and left thalamic infarcts are stable. 2. No intercurrent hemorrhage or hydrocephalus. David Soares MD on September 19, 2017 at 11:08 Board Certified Radiologist. This report was verified electronically.
[2017-09-19 12:26] LABS: ALBUMIN 2.8 GM/DL (3.4-5.0); ALT (GPT) 27 U/L (12-78); AST (GOT) 54 U/L (15-37); BICARBONATE 25.6 MEQ/L (21.0-32.0); BLOOD UREA NITROGEN 17 MG/DL (7-18); CALCIUM 8.7 MG/DL (8.5-10.1); CHLORIDE 104 MEQ/L (98-107); CREATININE 1.35 MG/DL (0.60-1.30); GLOMERULAR FILTRATION RATE 63 ML/MIN (>89); GLUCOSE,RANDOM 92 MG/DL (74-106); SODIUM (NA) 136 MEQ/L (136-145)
[2017-09-19 12:28] LABS: ALKALINE PHOSPHATASE 86 U/L (45-117); TOTAL BILIRUBIN ADULT 0.6 MG/DL (0.2-1.0); TOTAL PROTEIN 8.1 GM/DL (6.4-8.2)
[2017-09-19] MEDS: FERROUS SULFATE 325 MG (65 MG ELEMENTAL IRON) TAB PO SCH ×2 (13:00→17:00)
[2017-09-19] MEDS: DEXAMETHASONE SOD PHOS 4 MG/ML VIAL IV PUSH SCH ×2 (14:50→21:18)
[2017-09-19] MEDS: PRAVASTATIN SOD 40 MG TAB PO SCH (21:17)
[2017-09-19] MEDS: ATORVASTATIN 10 MG TAB PO SCH (21:17)
[2017-09-19] MEDS: EMTRICITABINE/TENOFOVIR 200 MG/300 MG TAB PO SCH (21:18)
[2017-09-20] VITALS (7 sets, daily range): BP systolic 113–174; BP diastolic 76–115; PULSE 64–79; RESP 17–18; TEMP 97.5–98.9; O2SAT 98–100
[2017-09-20] MEDS: DEXAMETHASONE SOD PHOS 4 MG/ML VIAL IV PUSH SCH ×3 (05:41→21:18)
[2017-09-20] MEDS: METOPROLOL TARTRATE 50 MG TAB PO SCH ×3 (05:41→21:17)
[2017-09-20] MEDS: cloNIDine HCL 0.1 MG TAB PO PRN ×2 (05:44→21:17)
[2017-09-20] MEDS: INSULIN ASPART SUPPLEMENTAL SCALE SQ SCH ×4 (08:00→21:00)
[2017-09-20 09:23] LABS: BICARBONATE 23.1 MEQ/L (21.0-32.0); CALCIUM 8.7 MG/DL (8.5-10.1); CREATININE 1.36 MG/DL (0.60-1.30)
[2017-09-20] MEDS: NIFEdipine 30 MG SUSTAINED RELEASE TAB PO SCH (09:43)
[2017-09-20] MEDS: SODIUM CHLORIDE 0.9% FLUSH 10 ML FLUSH IV FLUSH SCH ×2 (09:44→21:17)
[2017-09-20] MEDS: ASPIRIN 325 MG TAB PO SCH (09:44)
[2017-09-20] MEDS: TAMSULOSIN HCL 0.4 MG CAP PO SCH (09:44)
[2017-09-20] MEDS: HEPARIN SODIUM - SQ 10,000 UNITS/ML VIAL SQ SCH ×2 (09:44→21:18)
[2017-09-20] MEDS: HYDROCHLOROTHIAZIDE 25 MG TAB PO SCH (09:44)
[2017-09-20] MEDS: AMOXICILLIN/CLAVULANATE K 875 MG TAB PO SCH ×2 (09:44→21:17)
--- NOTE | 2017-09-20 10:59 | HHI.PR ---
Review/Management Diagnosis multifocal embolic strokes--more alert today. I reviewed CT from yesterday showing no new cva, but increasing cytotoxic edema. afib patent PFO Plan will follow up CT of today continue decadron next 4-5 days and aspirin Would delay starting full anticoagulation until at least a week due to edema Diagnosis/Plan: Subjective Subjective Comments No acute events reported Active Medications Current Medications Medications (Trade) Dose Ordered Sig/Eyal Route Start Time Stop Time Status Last Admin (Vasotec Inj) 1.25 mg Q4H PRN IV PUSH 09/15/17 18:45 (Trandate Inj) 10 mg Q2H PRN IV PUSH 09/15/17 18:45 09/15/17 18:54 (Pravachol) 40 mg HS PO 09/15/17 21:00 09/19/17 21:17 (Heparin Inj) 5,000 units Q12H SQ 09/15/17 21:00 09/20/17 09:44 (NS Flush) 2 ml BID IV FLUSH 09/16/17 21:00 09/20/17 09:44 (NS Flush) 2 ml UNSCH PRN IV FLUSH 09/16/17 15:45 Sodium Chloride 1,000 ml @ 30 mls/hr Q24H IV 09/16/17 15:38 09/19/17 23:18 (Aspirin) 325 mg DAILY PO 09/16/17 15:45 09/20/17 09:44 (NovoLOG SUPPLEMENTAL SCALE) 1 ACHS SQ 09/16/17 17:00 09/19/17 08:00 (D50w (Vial) Inj) 50 ml UNSCH PRN IV PUSH 09/16/17 15:45 (Glucagon Inj) 1 mg UNSCH PRN OTHER 09/16/17 15:45 (Tylenol) 650 mg Q4H PRN PO 09/16/17 21:00 09/18/17 09:53 (Catapres) 0.1 mg Q6H PRN PO 09/17/17 14:30 09/20/17 05:44 (Ferrous Sulfate) 325 mg BID@12,17 PO 09/17/17 17:00 09/19/17 13:00 (Flomax) 0.4 mg DAILY PO 09/18/17 09:00 09/20/17 09:44 (Lopressor) 50 mg Q8HR PO 09/17/17 15:30 09/20/17 05:41 (Truvada 200-300 Mg) 1 tab HS PO 09/18/17 21:00 09/19/17 21:18 (Sustiva) 600 mg HS PO 09/18/17 21:00 09/19/17 21:17 (Lipitor) 10 mg HS PO 09/17/17 22:40 09/19/17 21:17 (Procardia Xl) 30 mg DAILY PO 09/18/17 11:15 09/20/17 09:43 (Augmentin) 875 mg Q12HR PO 09/18/17 17:00 09/20/17 09:44 (Hydrodiuril) 25 mg DAILY PO 09/19/17 11:00 09/20/17 09:44 (Decadron Inj) 4 mg Q8HR IV PUSH 09/19/17 14:30 09/20/17 05:41 Allergies Allergies Coded Allergies No Known Allergies (Verified Allergy, Unknown, 09/15/17) Exam I&O / VS 09/20/17 09/20/17 09/21/17 15:00 23:00 07:00 Output Total 100 ml Balance -100 ml Output Urine Total 100 ml # Bowel Movements 0 Vital Signs Date Time Temp Pulse Resp B/P (MAP) Pulse Ox O2 Delivery O2 Flow Rate FiO2 09/20/17 08:00 98.9 64 18 151/101 (118) 100 09/20/17 07:26 97.5 72 18 174/115 (134) 100 09/20/17 00:00 98.3 68 18 166/98 (120) 100 09/19/17 21:27 98 Nasal Cannula 3.00 09/19/17 20:00 98.4 74 22 172/112 (132) 99 09/19/17 16:00 98.1 77 18 163/106 (125) 99 09/19/17 15:00 74 09/19/17 12:00 67 09/19/17 12:00 98.6 74 18 139/95 (110) 99 Exam Comments More alert today. He is able to say his name and repeat simple phrase and follow simple commands. CN--right upper motor neuron CN 7 palsey MOTOR 0/5 RUE, 1/5 RLE. 5/5 LUE and LLE Objective Micro and Labs Laboratory Tests Test 09/19/17 11:46 09/20/17 08:02 Blood Urea Nitrogen 17 20 Creatinine 1.35 1.36 Random Glucose 92 95 Total Protein 8.1 Albumin 2.8 Calcium Level 8.7 8.7 Alkaline Phosphatase 86 Aspartate Amino Transf (AST/SGOT) 54 Alanine Aminotransferase (ALT/SGPT) 27 Total Bilirubin 0.6 Sodium Level 136 135 Potassium Level 4.0 4.2 Chloride Level 104 104 Carbon Dioxide Level 25.6 23.1 Anion Gap 6 8 Estimat Glomerular Filtration Rate 63 63 Date/Time Source Procedure Growth Status 09/17/17 15:06 Blood Peripheral Aerobic Blood Culture - Preliminary NO GROWTH IN 2 DAYS Resulted 09/17/17 15:06 Blood Peripheral Anaerobic Blood Culture - Preliminary NO GROWTH IN 2 DAYS Resulted 09/17/17 08:13 Urine Clean Catch Urine Culture - Final Lactobacillus Species Complete Anoop Valencia PhD Sep 20, 2017 10:59
--- NOTE | 2017-09-20 11:11 | HHI.PR ---
Subjective Remarks patient more awake and alert today spoke and stated his name denies any headache "hungry" Objective Vitals Vital Signs Date Time Temp Pulse Resp B/P (MAP) Pulse Ox O2 Delivery O2 Flow Rate FiO2 09/20/17 08:00 98.9 64 18 151/101 (118) 100 09/20/17 07:26 97.5 72 18 174/115 (134) 100 09/20/17 00:00 98.3 68 18 166/98 (120) 100 09/19/17 21:27 98 Nasal Cannula 3.00 09/19/17 20:00 98.4 74 22 172/112 (132) 99 09/19/17 16:00 98.1 77 18 163/106 (125) 99 09/19/17 15:00 74 09/19/17 12:00 67 09/19/17 12:00 98.6 74 18 139/95 (110) 99 I/O 09/19/17 09/19/17 09/19/17 09/20/17 09/20/17 09/20/17 07:00 15:00 23:00 07:00 15:00 23:00 Output Total 100 ml Balance -100 ml Output Urine Total 100 ml # Voids 3 2 # Bowel Movements 0 0 Result Diagram: 09/17/17 1030 09/20/17 0802 Imaging Last Impressions Head CT 09/19/17 0953 Signed Impressions: Service Date/Time: August 10:51 - CONCLUSION: 1. Evolving left temporo-occipital, right cerebellar and left thalamic infarcts. There is slight increased edema in the left temporo-occipital infarct with increased sulcal effacement but no significant herniation. The right cerebellar and left thalamic infarcts are stable. 2. No intercurrent hemorrhage or hydrocephalus. David Soares MD Chest X-Ray 09/19/17 0600 Signed Impressions: Service Date/Time: August 06:47 - CONCLUSION: No significant change has occurred. Deniz Castaneda MD Renal Ultrasound 09/17/17 0000 Signed Impressions: Service Date/Time: Sunday, September 17, 2017 16:15 - CONCLUSION: 1. Small amount of layering debris within the urinary bladder. Otherwise, unremarkable exam. Jonathan Lou Jr., MD Head Magnetic Resonance Angiography 09/17/17 0000 Signed Impressions: Service Date/Time: Sunday, September 17, 2017 16:55 - CONCLUSION: Stable exam since 2016. No aneurysms identified. Patent right posterior communicating artery. Continued narrowing of the distal right vertebral artery unchanged. Jhon Horner MD Brain MRI 09/17/17 0000 Signed Impressions: Service Date/Time: Sunday, September 17, 2017 16:55 - CONCLUSION: Multiple abnormal areas of signal scattered throughout the brain including infra-and supratentorially consistent multifocal strokes. I don't see any evidence of hemorrhage. Jhon Horner MD Neck CTA 09/15/17 1659 Signed Impressions: Service Date/Time: Friday, September 15, 2017 17:18 - CONCLUSION: Extremely limited CT of the head. The major vessels are patent. 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 The more distal branches do fill via collaterals. Damion Elliott MD Objective Remarks awake, alert, spoke and stated his name "hungry"f anicteric + mild facial asymmetry tongue midline-+ gag no nuchal rigidity lungs- no rales regular rhythm- sinus abdomen soft, nontender extremities right sided plegia- but idd moved fingers transiently A/P Assessment and Plan 72 year old right-handed male who is HIV+ and with HTN, previous stroke in 2016 who presented as a stoke alert in ED with complaints of dysarthria, and right- sided face, arm, and leg weakness. Initially it was unclear the time of onset of symptoms. NIH stroke scale was found to be 22. Patient was rushed to CT scan which demonstrated an infarct which likely occurred more than 6 hours ago. His symptoms started when he woke up this morning and at 10 AM his speech symptoms started which places him outside of a 6 hour window for intervention. Based on this patient is not a TPA candidate. CT demonstrates infarction in the left occipital and posterior temporal lobes. Neuro consulted as well as cardiology Acute CVA (cerebral vascular accident) involving left occipital and temporal lobe - Cerebral edema on 09/19- MS improved with Decadron history of previous CVA per friend at bedside 09/17 - still ambulates independently occasionally uses a cane - Head CT acute infarction on left occipital and and inferior temporal lobe. Old infarction anterior left lat midbrain - Neck CTA reviewed patent major vessels, however limited study - head CTA with Occlusion of proximal left [employer] 2 cm from its origin - PT/OT consult. speech therapy - swallowing and speech therapy- mechanical soft with thin liquids - continue on ASA - repeat head CT today - clinically improving - d/w Dr. Valencia ff- continue Decadron for few more days Episode of NSVT 09/17- on telemetry- Paroxysmal a fib- rate controlled mild elevated troponin in the setting of CVA on admission Uncotnrolled HYpertension HYperlipidemia - telemetry- sinus with PACs- rate controlled -EKG reviewed with ST changes in leads II, III, aVF and with RBBB, LAD, LAHB - Aspirin 325mg daily eventually start Eliquis- held for now due to edema per Dr. Valencia - Lipitor 40mg po qhs -=continue on 50 mg po q 8- had episode of runs of SVT --09/17- rate controlled - Procardia 30 mg XL for BP control. - HCTZ 25 mg po daily - ECHO ordered - EF 50%. - Clonidine prn for SBP > 180 - HIV (human immunodeficiency virus infection) - Patient had seen hematology/oncology about ~11 years ago and diagnosed with HIV - Will need to establish care to be provided as an outpatient Acute KI r/o underlying CKI -start on gentle fluids- de reased rate. monitor po intake - creatinine improve - non oliguric Lung Infilatrate on CXR- left- possible aspiration scenario based on clinical status and location started on augmentin 875 mg po bid Pyuria- final C and s- Lactobacillus- nomral kristie Discontinue Levaquin Iron deficiency anemia - Ferrous sulfate 325 mg po bid On Heparin SQ q12 CM consulted- referral to [facility] ADD: stat CT shows edema and sulci effacement -start Decadron 4 mg q 8 Mercedes Johnson MD Sep 20, 2017 11:11
[2017-09-20] MEDS: FERROUS SULFATE 325 MG (65 MG ELEMENTAL IRON) TAB PO SCH ×2 (11:33→15:49)
--- NOTE | 2017-09-20 11:47 | RADRPT ---
EXAM DATE/TIME: 09/20/2017 10:43 [facility] COMPARISON: CT BRAIN W/O CONTRAST, September 19, 2017, 10:51. INDICATIONS : Stroke, evaluate for hemorrhage. RADIATION DOSE: 31.11 CTDIvol (mGy) MEDICAL HISTORY : Stroke. Cardiovascular disease HIV. SURGICAL HISTORY : None. ENCOUNTER: Initial ACUITY: 1 day PAIN SCALE: 0/10 LOCATION: cranial TECHNIQUE: Multiple contiguous axial images were obtained of the head. Using automated exposure control and adj ustment of the mA and/or kV according to patient size, radiation dose was kept as low as reasonably a chievable to obtain optimal diagnostic quality images. DICOM format image data is available electro nically for review and comparison. FINDINGS: No significant change relative to the prior study. Again seen are areas of nonhemorrhagic infarction involving the left temporal occipital lobe, left thalamus, and right cerebellar hemisphere. No hernia tion or significant mass effect other than effacement of the sulcal pattern involving the left tempor al occipital lobe. Extensive periventricular low attenuation change involving both cerebral hemispher es. Questionable chronic lacunar infarction involving the xiang to the left of midline. Ventricles are stable in size. Paranasal sinuses and mastoid air cells are clear. CONCLUSION: 1. No significant change in the left temporal occipital, left thalamic, and right cerebellar nonhemor rhagic infarctions. Jonathan Lou Jr., MD on September 20, 2017 at 11:40 Board Certified Radiologist. This report was verified electronically.
[2017-09-20] MEDS: EMTRICITABINE/TENOFOVIR 200 MG/300 MG TAB PO SCH (21:16)
[2017-09-20] MEDS: PRAVASTATIN SOD 40 MG TAB PO SCH (21:17)
[2017-09-20] MEDS: ATORVASTATIN 10 MG TAB PO SCH (21:17)
[2017-09-21] VITALS (7 sets, daily range): BP systolic 127–167; BP diastolic 90–101; PULSE 59–82; RESP 16–20; TEMP 97.2–98.7; O2SAT 94–100
[2017-09-21] MEDS: SODIUM CHLOR 0.9% 1000 ML INJ 1,000 ML IV SCH (03:51)
[2017-09-21 04:57] LABS: BICARBONATE 24.4 MEQ/L (21.0-32.0); CALCIUM 8.8 MG/DL (8.5-10.1); CREATININE 1.5 MG/DL (0.60-1.30)
[2017-09-21] MEDS: DEXAMETHASONE SOD PHOS 4 MG/ML VIAL IV PUSH SCH ×3 (06:09→21:39)
[2017-09-21] MEDS: cloNIDine HCL 0.1 MG TAB PO PRN ×2 (06:09→16:08)
[2017-09-21] MEDS: METOPROLOL TARTRATE 50 MG TAB PO SCH ×3 (06:09→21:39)
[2017-09-21] MEDS: INSULIN ASPART SUPPLEMENTAL SCALE SQ SCH ×4 (08:00→21:00)
[2017-09-21] MEDS: SODIUM CHLORIDE 0.9% FLUSH 10 ML FLUSH IV FLUSH SCH ×2 (09:00→21:00)
[2017-09-21] MEDS: ASPIRIN 325 MG TAB PO SCH (09:28)
[2017-09-21] MEDS: TAMSULOSIN HCL 0.4 MG CAP PO SCH (09:29)
[2017-09-21] MEDS: HEPARIN SODIUM - SQ 10,000 UNITS/ML VIAL SQ SCH ×2 (09:29→21:39)
[2017-09-21] MEDS: NIFEdipine 30 MG SUSTAINED RELEASE TAB PO SCH (09:29)
[2017-09-21] MEDS: HYDROCHLOROTHIAZIDE 25 MG TAB PO SCH (09:29)
[2017-09-21] MEDS: ACETAMINOPHEN 325 MG TAB PO PRN (09:30)
[2017-09-21] MEDS: AMOXICILLIN/CLAVULANATE K 875 MG TAB PO SCH ×2 (09:30→21:38)
[2017-09-21] MEDS: FERROUS SULFATE 325 MG (65 MG ELEMENTAL IRON) TAB PO SCH ×2 (11:33→15:48)
[2017-09-21] MEDS ORDERED: NIFEdipine 30 MG SUSTAINED RELEASE TAB PO SCH (12:00)
--- NOTE | 2017-09-21 12:05 | HHI.PR ---
Subjective Remarks seen with pina at bedside patient definitely more awake and alert, spoke - states his name, "hospictal" and "that's my fiancee" no headaches appears a little sad Objective Vitals Vital Signs Date Time Temp Pulse Resp B/P (MAP) Pulse Ox O2 Delivery O2 Flow Rate FiO2 09/21/17 08:00 61 09/21/17 08:00 97.7 61 17 127/90 (102) 100 09/21/17 05:03 97.4 64 20 167/101 (123) 100 09/21/17 00:51 97.2 59 19 142/91 (108) 94 09/20/17 21:00 98.5 79 17 148/98 (115) 99 09/20/17 16:00 98.5 69 18 130/91 (104) 100 09/20/17 12:41 98 Nasal Cannula 3.00 I/O 09/20/17 09/20/17 09/20/17 09/21/17 09/21/17 09/21/17 07:00 15:00 23:00 07:00 15:00 23:00 Intake Total 200 ml Output Total 100 ml 150 ml Balance -100 ml 200 ml -150 ml Intake Oral 200 ml Output Urine Total 100 ml 150 ml # Voids 2 1 # Bowel Movements 0 2 Result Diagram: 09/17/17 1030 09/21/17 0410 Imaging Last Impressions Head CT 09/20/17 0800 Signed Impressions: Service Date/Time: Wednesday, September 20, 2017 10:43 - CONCLUSION: 1. No significant change in the left temporal occipital, left thalamic, and right cerebellar nonhemorrhagic infarctions. Jonathan Lou Jr., MD Chest X-Ray 09/19/17 0600 Signed Impressions: Service Date/Time: August 06:47 - CONCLUSION: No significant change has occurred. Deniz Castaneda MD Renal Ultrasound 09/17/17 0000 Signed Impressions: Service Date/Time: Sunday, September 17, 2017 16:15 - CONCLUSION: 1. Small amount of layering debris within the urinary bladder. Otherwise, unremarkable exam. Jonathan Lou Jr., MD Head Magnetic Resonance Angiography 09/17/17 0000 Signed Impressions: Service Date/Time: Sunday, September 17, 2017 16:55 - CONCLUSION: Stable exam since 2016. No aneurysms identified. Patent right posterior communicating artery. Continued narrowing of the distal right vertebral artery unchanged. Jhon Horner MD Brain MRI 09/17/17 0000 Signed Impressions: Service Date/Time: Sunday, September 17, 2017 16:55 - CONCLUSION: Multiple abnormal areas of signal scattered throughout the brain including infra-and supratentorially consistent multifocal strokes. I don't see any evidence of hemorrhage. Jhon Horner MD Neck CTA [id number] Signed Impressions: Service Date/Time: Friday, September 15, 2017 17:18 - CONCLUSION: Extremely limited CT of the head. The major vessels are patent. 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 The more distal branches do fill via collaterals. Damion Elliott MD Objective Remarks awake, alert, spoke, speech more spontaenous- soft but clear anicteric + mild facial asymmetry tongue midline-+ gag no nuchal rigidity lungs- no rales regular rhythm- sinus abdomen soft, nontender extremities right upper extremity- 0/5 right lower extremity- 1/5 A/P Assessment and Plan 72 year old right-handed male who is HIV+ and with HTN, previous stroke in 2016 who presented as a stoke alert in ED with complaints of dysarthria, and right- sided face, arm, and leg weakness. Initially it was unclear the time of onset of symptoms. NIH stroke scale was found to be 22. Patient was rushed to CT scan which demonstrated an infarct which likely occurred more than 6 hours ago. His symptoms started when he woke up this morning and at 10 AM his speech symptoms started which places him outside of a 6 hour window for intervention. Based on this patient is not a TPA candidate. CT demonstrates infarction in the left occipital and posterior temporal lobes. Neuro consulted as well as cardiology Acute CVA (cerebral vascular accident) involving left occipital and temporal lobe -- Cerebral edema on 09/19- MS improved with Decadron history of previous CVA per friend at bedside 09/17 - still ambulates independently occasionally uses a cane - Head CT acute infarction on left occipital and and inferior temporal lobe. 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 speech therapy - swallowing and speech therapy- mechanical soft with thin liquids - continue on ASA - repeat head CT - some improvement - clinically improving - d/w Dr. Valencia ff- continue Decadron for few more days Episode of NSVT 09/17- on telemetry- Paroxysmal a fib- rate controlled- telemetry in SR mild elevated troponin in the setting of CVA on admission Uncotnrolled HYpertension HYperlipidemia -EKG reviewed with ST changes in leads II, III, aVF and with RBBB, LAD, LAHB - Aspirin 325mg daily eventually start Eliquis- held for now due to edema per Dr. Valencia - Lipitor 40mg po qhs -=continue on 50 mg po q 8- - Procardia 30 mg XL for BP control. - increase to 60 mg daily - HCTZ 25 mg po daily - ECHO - EF 50%. - Clonidine prn for SBP > 180 - HIV (human immunodeficiency virus infection) - Patient had seen hematology/oncology about ~11 years ago and diagnosed with HIV - Will need to establish care to be provided as an outpatient Acute KI r/o underlying CKI -start on gentle fluids- de reased rate. monitor po intake - creatinine improve - non oliguric Lung Infilatrate on CXR- left- possible aspiration scenario based on clinical status and location started on augmentin 875 mg po bid Pyuria- final C and s- Lactobacillus- nomral kristie Discontinue Levaquin Iron deficiency anemia - Ferrous sulfate 325 mg po bid On Heparin SQ q12 CM consulted- referral to [facility]- accepted - hopefully tomorrow or Saturday Mercedes Johnson MD Sep 21, 2017 12:05
[2017-09-21] MEDS: ATORVASTATIN 10 MG TAB PO SCH (21:38)
[2017-09-21] MEDS: PRAVASTATIN SOD 40 MG TAB PO SCH (21:39)
[2017-09-21] MEDS: EMTRICITABINE/TENOFOVIR 200 MG/300 MG TAB PO SCH (21:39)
[2017-09-22] VITALS (13 sets, daily range): BP systolic 140–169; BP diastolic 98–116; PULSE 59–70; RESP 18–21; TEMP 97.4–98.1; O2SAT 95–99
[2017-09-22] MEDS: cloNIDine HCL 0.1 MG TAB PO PRN ×3 (00:35→17:12)
[2017-09-22] MEDS ORDERED: cloNIDine HCL 0.1 MG TAB PO ONE (02:45)
[2017-09-22] MEDS: SODIUM CHLOR 0.9% 1000 ML INJ 1,000 ML IV SCH (03:03)
[2017-09-22] MEDS: METOPROLOL TARTRATE 50 MG TAB PO SCH ×3 (05:44→21:49)
[2017-09-22] MEDS: DEXAMETHASONE SOD PHOS 4 MG/ML VIAL IV PUSH SCH ×3 (05:44→21:48)
[2017-09-22] MEDS: INSULIN ASPART SUPPLEMENTAL SCALE SQ SCH ×2 (08:00→10:28)
[2017-09-22] MEDS: HYDROCHLOROTHIAZIDE 25 MG TAB PO SCH (08:42)
[2017-09-22] MEDS: HEPARIN SODIUM - SQ 10,000 UNITS/ML VIAL SQ SCH ×2 (08:42→21:48)
[2017-09-22] MEDS: AMOXICILLIN/CLAVULANATE K 875 MG TAB PO SCH ×2 (08:42→21:49)
[2017-09-22] MEDS: TAMSULOSIN HCL 0.4 MG CAP PO SCH (08:42)
[2017-09-22] MEDS: NIFEdipine 60 MG SUSTAINED RELEASE TAB PO SCH (08:42)
[2017-09-22] MEDS: SODIUM CHLORIDE 0.9% FLUSH 10 ML FLUSH IV FLUSH SCH ×2 (08:42→21:00)
[2017-09-22] MEDS: ASPIRIN 325 MG TAB PO SCH (08:42)
--- NOTE | 2017-09-22 10:12 | HHI.PR ---
Subjective Remarks patient awake and alert speaking more- speech soft but clear- stted his name, identified his at bedside ff all commands denies any pain repeat BP at bedside now 140/98 Objective Vitals Vital Signs Date Time Temp Pulse Resp B/P (MAP) Pulse Ox O2 Delivery O2 Flow Rate FiO2 09/22/17 08:37 97.5 61 20 165/99 (121) 97 09/22/17 06:35 59 151/104 (120) 09/22/17 04:30 98.0 61 18 160/101 (120) 99 09/22/17 02:00 166/108 (127) 09/22/17 01:49 70 09/22/17 00:33 97.7 69 18 169/116 (133) 98 09/21/17 20:59 98.2 69 16 149/93 (111) 98 09/21/17 16:00 98.7 65 18 155/93 (113) 95 09/21/17 16:00 66 09/21/17 12:36 98.4 70 141/ 99 09/21/17 12:00 82 I/O 09/21/17 09/21/17 09/21/17 09/22/17 09/22/17 09/22/17 07:00 15:00 23:00 07:00 15:00 23:00 Intake Total 330 ml 977 ml Output Total 150 ml 400 ml Balance -150 ml -400 ml 330 ml 977 ml Intake Oral 120 ml IV Total 330 ml 857 ml Output Urine Total 150 ml 400 ml # Voids 1 2 # Bowel Movements 2 2 1 Result Diagram: 09/21/17 0410 Imaging Last Impressions Head CT 09/20/17 0800 Signed Impressions: Service Date/Time: Wednesday, September 20, 2017 10:43 - CONCLUSION: 1. No significant change in the left temporal occipital, left thalamic, and right cerebellar nonhemorrhagic infarctions. Jonathan Lou Jr., MD Chest X-Ray 09/19/17 0600 Signed Impressions: Service Date/Time: August 06:47 - CONCLUSION: No significant change has occurred. Deniz Castaneda MD Renal Ultrasound 09/17/17 0000 Signed Impressions: Service Date/Time: Sunday, September 17, 2017 16:15 - CONCLUSION: 1. Small amount of layering debris within the urinary bladder. Otherwise, unremarkable exam. Jonathan Lou Jr., MD Head Magnetic Resonance Angiography 09/17/17 0000 Signed Impressions: Service Date/Time: Sunday, September 17, 2017 16:55 - CONCLUSION: Stable exam since 2016. No aneurysms identified. Patent right posterior communicating artery. Continued narrowing of the distal right vertebral artery unchanged. Jhon Horner MD Brain MRI 09/17/17 0000 Signed Impressions: Service Date/Time: Sunday, September 17, 2017 16:55 - CONCLUSION: Multiple abnormal areas of signal scattered throughout the brain including infra-and supratentorially consistent multifocal strokes. I don't see any evidence of hemorrhage. Jhon Horner MD Neck CTA [id number] Signed Impressions: Service Date/Time: Friday, September 15, 2017 17:18 - CONCLUSION: Extremely limited CT of the head. The major vessels are patent. 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 The more distal branches do fill via collaterals. Damion Elliott MD Objective Remarks awake, alert, spoke and stated his name anicteric + mild facial asymmetry tongue midline-+ gag no nuchal rigidity lungs- no rales regular rhythm- sinus abdomen soft, nontender extremities right UE 0/5 right lower extremity- he was able to lift his right leg above on his own against gravity A/P Assessment and Plan 72 year old right-handed male who is HIV+ and with HTN, previous stroke in 2016 who presented as a stoke alert in ED with complaints of dysarthria, and right- sided face, arm, and leg weakness. Initially it was unclear the time of onset of symptoms. NIH stroke scale was found to be 22. Patient was rushed to CT scan which demonstrated an infarct which likely occurred more than 6 hours ago. His symptoms started when he woke up this morning and at 10 AM his speech symptoms started which places him outside of a 6 hour window for intervention. Based on this patient is not a TPA candidate. CT demonstrates infarction in the left occipital and posterior temporal lobes. Neuro consulted as well as cardiology Acute CVA (cerebral vascular accident) involving left occipital and temporal lobe -- Cerebral edema on 09/19- MS improved with Decadron history of previous CVA per friend at bedside 09/17 - still ambulates independently occasionally uses a cane - Head CT acute infarction on left occipital and and inferior temporal lobe. 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 speech therapy - swallowing and speech therapy- mechanical soft with thin liquids - continue on ASA - repeat head CT - some improvement - clinically improving - d/w Dr. Valencia ff- continue Decadron - will DC in am Episode of NSVT 09/17- on telemetry- Paroxysmal a fib- rate controlled- telemetry in SR mild elevated troponin in the setting of CVA on admission Uncotnrolled HYpertension HYperlipidemia -EKG reviewed with ST changes in leads II, III, aVF and with RBBB, LAD, LAHB - Aspirin 325mg daily eventually start Eliquis- held for now due to edema per Dr. Valencia - Lipitor 40mg po qhs -=continue on 50 mg po q 8- - Procardia 60 mg XL daily - HCTZ 25 mg po daily - ECHO - EF 50%. - Clonidine prn for SBP >160 - add Hydralazinne 25 mg po q8 - HIV (human immunodeficiency virus infection) - Patient had seen hematology/oncology about ~11 years ago and diagnosed with HIV - Will need to establish care to be provided as an outpatient Acute KI r/o underlying CKI -start on gentle fluids- decreased rate. monitor po intake - creatinine improve - non oliguric - BMP now- HCTZ was added to hypertension regimen Lung Infilatrate on CXR- left- possible aspiration scenario based on clinical status and location continue on augmentin 875 mg po bid Pyuria- final C and s- Lactobacillus- nomral kristie Discontinue Levaquin Iron deficiency anemia - Ferrous sulfate 325 mg po bid On Heparin SQ q12 CM consulted- referral to [facility]- accepted will order for PT to see patient daily including weekends Out of bed to [facility] for meals Mercedes Johnson MD Sep 22, 2017 10:12
[2017-09-22 10:57] LABS: BICARBONATE 23.3 MEQ/L (21.0-32.0); CALCIUM 8.7 MG/DL (8.5-10.1); CREATININE 1.4 MG/DL (0.60-1.30)
[2017-09-22] MEDS: FERROUS SULFATE 325 MG (65 MG ELEMENTAL IRON) TAB PO SCH ×2 (11:42→17:12)
[2017-09-22] MEDS: EMTRICITABINE/TENOFOVIR 200 MG/300 MG TAB PO SCH (21:47)
[2017-09-22] MEDS: ATORVASTATIN 10 MG TAB PO SCH (21:49)
[2017-09-22] MEDS: PRAVASTATIN SOD 40 MG TAB PO SCH (21:49)
[2017-09-23 00:30] VITALS: BP 156/86; PULSE 64; RESP 20; TEMP 98.3; O2SAT 94
[2017-09-23] MEDS: SODIUM CHLOR 0.9% 1000 ML INJ 1,000 ML IV SCH (03:18)
[2017-09-23 04:30] VITALS: BP 148/89; PULSE 64; RESP 20; TEMP 98.4; O2SAT 97
[2017-09-23] MEDS: METOPROLOL TARTRATE 50 MG TAB PO SCH (05:57)
[2017-09-23] MEDS: DEXAMETHASONE SOD PHOS 4 MG/ML VIAL IV PUSH SCH (05:57)
[2017-09-23] MEDS: HYDROCHLOROTHIAZIDE 25 MG TAB PO SCH (08:28)
[2017-09-23] MEDS: HEPARIN SODIUM - SQ 10,000 UNITS/ML VIAL SQ SCH (08:28)
[2017-09-23] MEDS: ASPIRIN 325 MG TAB PO SCH (08:28)
[2017-09-23] MEDS: AMOXICILLIN/CLAVULANATE K 875 MG TAB PO SCH (08:28)
[2017-09-23] MEDS: TAMSULOSIN HCL 0.4 MG CAP PO SCH (08:28)
[2017-09-23] MEDS: NIFEdipine 60 MG SUSTAINED RELEASE TAB PO SCH (08:28)
[2017-09-23 08:48] VITALS: BP 176/119; PULSE 81; RESP 18; TEMP 97.6; O2SAT 95
[2017-09-23 09:35] VITALS: BP 140/91
--- NOTE | 2017-09-23 09:46 | HHI.PR ---
Subjective Remarks patient up on the chair appears comfortable, awake and alert stated his name, "2016", "new Year" review BPs Objective Vitals Vital Signs Date Time Temp Pulse Resp B/P (MAP) Pulse Ox O2 Delivery O2 Flow Rate FiO2 09/23/17 09:35 140/91 (107) 09/23/17 08:48 97.6 81 18 176/119 (138) 95 09/23/17 04:30 98.4 64 20 148/89 (108) 97 09/23/17 00:30 98.3 64 20 156/86 (109) 94 09/22/17 21:00 63 09/22/17 20:45 97.7 63 21 160/99 (119) 95 09/22/17 16:34 97.4 66 20 143/106 (118) 95 09/22/17 16:00 66 09/22/17 12:32 98.1 65 20 165/105 (125) 98 09/22/17 12:00 70 09/22/17 10:10 140/98 (112) I/O 09/22/17 09/22/17 09/22/17 09/23/17 09/23/17 09/23/17 07:00 15:00 23:00 07:00 15:00 23:00 Intake Total 977 ml 480 ml 980 ml 100 ml Balance 977 ml 480 ml 980 ml 100 ml Intake Oral 120 ml 480 ml 650 ml 100 ml IV Total 857 ml 330 ml # Voids 2 3 2 5 # Bowel Movements 1 0 0 Result Diagram: 09/22/17 1024 Imaging Last Impressions Head CT 09/20/17 0800 Signed Impressions: Service Date/Time: Wednesday, September 20, 2017 10:43 - CONCLUSION: 1. No significant change in the left temporal occipital, left thalamic, and right cerebellar nonhemorrhagic infarctions. Jonathan Lou Jr., MD Chest X-Ray 09/19/17 0600 Signed Impressions: Service Date/Time: August 06:47 - CONCLUSION: No significant change has occurred. Deniz Castaneda MD Renal Ultrasound 09/17/17 0000 Signed Impressions: Service Date/Time: Sunday, September 17, 2017 16:15 - CONCLUSION: 1. Small amount of layering debris within the urinary bladder. Otherwise, unremarkable exam. Jonathan Lou Jr., MD Head Magnetic Resonance Angiography 09/17/17 0000 Signed Impressions: Service Date/Time: Sunday, September 17, 2017 16:55 - CONCLUSION: Stable exam since 2016. No aneurysms identified. Patent right posterior communicating artery. Continued narrowing of the distal right vertebral artery unchanged. Jhon Horner MD Brain MRI 09/17/17 0000 Signed Impressions: Service Date/Time: Sunday, September 17, 2017 16:55 - CONCLUSION: Multiple abnormal areas of signal scattered throughout the brain including infra-and supratentorially consistent multifocal strokes. I don't see any evidence of hemorrhage. Jhon Horner MD Neck CTA 09/15/17 1659 Signed Impressions: Service Date/Time: Friday, September 15, 2017 17:18 - CONCLUSION: Extremely limited CT of the head. The major vessels are patent. 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 The more distal branches do fill via collaterals. Damion Elliott MD Objective Remarks awake, alert, spoke and stated his name ,"2016" " New year", speech soft and clearer BP 140/90 anicteric very mild facial asymmery tongue midline-+ gag no nuchal rigidity lungs- no rales regular rhythm- sinus abdomen soft, nontender extremities right UE 0/5 Right LE- 2/5- able to raise and move on his own left sided extremities 5/5 A/P Assessment and Plan 72 year old right-handed male who is HIV+ and with HTN, previous stroke in 2016 who presented as a stoke alert in ED with complaints of dysarthria, and right- sided face, arm, and leg weakness. Initially it was unclear the time of onset of symptoms. NIH stroke scale was found to be 22. Patient was rushed to CT scan which demonstrated an infarct which likely occurred more than 6 hours ago. His symptoms started when he woke up this morning and at 10 AM his speech symptoms started which places him outside of a 6 hour window for intervention. Based on this patient is not a TPA candidate. CT demonstrates infarction in the left occipital and posterior temporal lobes. Neuro consulted as well as cardiology Acute CVA (cerebral vascular accident) involving left occipital and temporal lobe -- Cerebral edema on 09/19- MS improved with Decadron history of previous CVA per friend at bedside 09/17 - was ambulating independently occasionally uses a cane Mild expressive aphasia - Neurologically Improving- - spoke more today - Head CT acute infarction on left occipital and and inferior temporal lobe. 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 Valencia ff- continue Decadron - 4-5 days - d/w Dr. Salmeron- she will continue this in Rehab and taper Episode of NSVT 09/17- on telemetry- Paroxysmal a fib- rate controlled- telemetry in SR mild elevated troponin in the setting of CVA on admission Uncotnrolled HYpertension HYperlipidemia -EKG reviewed with ST changes in leads II, III, aVF and with RBBB, LAD, LAHB - Aspirin 325mg daily eventually start Eliquis- held for now due to edema per Dr. Valencia - Lipitor 40mg po qhs -=continue on 50 mg po q 8- - Procardia increased to 60 mg XL daily - HCTZ 25 mg po daily - ECHO - EF 50%. - Clonidine prn for SBP >160 - Hydralazine 25 mg po q8- will increase to 50 mg po q8 - HIV (human immunodeficiency virus infection) - Patient had seen hematology/oncology about ~11 years ago and diagnosed with HIV - Will need to establish care to be provided as an outpatient Acute KI r/o underlying CKI - creatinine stable - non oliguric - Lung Infilatrate on CXR- left- possible aspiration scenario based on clinical status and location continue on augmentin 875 mg po bid- will complete course and put a stop date Pyuria- final C and s- Lactobacillus- nomral kristie Discontinue Levaquin Iron deficiency anemia - Ferrous sulfate 325 mg po bid On Heparin SQ q12 CM consulted- referral to [facility]- accepted - [facility] today informed patient and family at bedside Mercedes Johnson MD Sep 23, 2017 09:46
[2017-09-23] MEDS ORDERED: DEXA4TAB PO (10:06)
[2017-09-23] MEDS ORDERED: AMOX875T2 PO (10:06)
[2017-09-23] MEDS ORDERED: NIFE60TA8 PO (10:06)
[2017-09-23] MEDS ORDERED: HYDR25TA5 PO (10:06)
[2017-09-23] MEDS ORDERED: FERR325T20 PO (10:06)
[2017-09-23] MEDS ORDERED: CLON.1 PO (10:09)
[2017-09-23] MEDS ORDERED: HYDR-3799 PO (10:09)
[2017-09-23] MEDS ORDERED: Heparin Inj SQ (10:09)
[2017-09-23] MEDS ORDERED: METO-309 PO (10:09)
--- NOTE | 2017-09-23 10:11 | HHI.DS ---
Discharge Summary Admission Date Sep 15, 2017 at 18:06 Discharge Date: Sep 23, 2017 Admitting Diagnosis stroke (1) CVA (cerebral vascular accident) ICD Code: I63.9 - Cerebral infarction, unspecified Diagnosis: Principal Status: Acute (2) MARCIN (acute kidney injury) ICD Code: N17.9 - Acute kidney failure, unspecified Diagnosis: Secondary Status: Acute (3) HIV (human immunodeficiency virus infection) ICD Code: Z21 - Asymptomatic human immunodeficiency virus [HIV] infection status Diagnosis: Secondary Status: Chronic Procedures none Brief History - From Admission 72 year old right-handed male with PMH of HIV+ and HTN who is brought to the ED by EMS as a stroke alert. Patient reports his symptoms started last night with worsening weakness on the right side, and dysarthria at 10 AM today. He has right arm and leg weakness and difficulty with speech. He has had difficulty ambulating secondary to his right leg weakness. Denies visual changes. Denies numbness or tingling in extremities. Denies chest pain. Reports mild shortness of breath. He does not have a primary care physician. Family at bedside. CBC/BMP: 09/22/17 1024 Significant Findings Laboratory Tests Test 09/21/17 04:10 09/22/17 10:24 Blood Urea Nitrogen 28 MG/DL (7-18) 28 MG/DL (7-18) Creatinine 1.50 MG/DL (0.60-1.30) 1.40 MG/DL (0.60-1.30) Estimat Glomerular Filtration Rate 56 ML/MIN (>89) 61 ML/MIN (>89) Chloride Level 108 MEQ/L (98-107) Imaging Last Impressions Head CT 09/20/17 0800 Signed Impressions: Service Date/Time: Wednesday, September 20, 2017 10:43 - CONCLUSION: 1. No significant change in the left temporal occipital, left thalamic, and right cerebellar nonhemorrhagic infarctions. Jonathan oLu Jr., MD Chest X-Ray 09/19/17 0600 Signed Impressions: Service Date/Time: August 06:47 - CONCLUSION: No significant change has occurred. Deniz Castaneda MD Renal Ultrasound 09/17/17 0000 Signed Impressions: Service Date/Time: Sunday, September 17, 2017 16:15 - CONCLUSION: 1. Small amount of layering debris within the urinary bladder. Otherwise, unremarkable exam. Jonathan Lou Jr., MD Head Magnetic Resonance Angiography 09/17/17 0000 Signed Impressions: Service Date/Time: Sunday, September 17, 2017 16:55 - CONCLUSION: Stable exam since 2016. No aneurysms identified. Patent right posterior communicating artery. Continued narrowing of the distal right vertebral artery unchanged. Jhon Horner MD Brain MRI 09/17/17 0000 Signed Impressions: Service Date/Time: Sunday, September 17, 2017 16:55 - CONCLUSION: Multiple abnormal areas of signal scattered throughout the brain including infra-and supratentorially consistent multifocal strokes. I don't see any evidence of hemorrhage. Jhon Horner MD Neck CTA 09/15/17 165 Signed Impressions: Service Date/Time: Friday, September 15, 2017 17:18 - CONCLUSION: Extremely limited CT of the head. The major vessels are patent. 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 The more distal branches do fill via collaterals. Damion Elliott MD PE at Discharge awake, alert, spoke and stated his name ,"2016" " New year", speech soft and clearer BP 140/90 anicteric very mild facial asymmery tongue midline-+ gag no nuchal rigidity lungs- no rales regular rhythm- sinus abdomen soft, nontender extremities right UE 0/5 Right LE- 2/5- able to raise and move on his own left sided extremities 5/5 Pt update on day of discharge BP 140/90 HR sinus up in chair spoke speech soft- identified family member, 2017, ff all commands Hospital Course 72 year old right-handed male who is HIV+ and with HTN, previous stroke in 2016 who presented as a stoke alert in ED with complaints of dysarthria, and right- sided face, arm, and leg weakness. Initially it was unclear the time of onset of symptoms. NIH stroke scale was found to be 22. Patient was rushed to CT scan which demonstrated an infarct which likely occurred more than 6 hours ago. His symptoms started when he woke up this morning and at 10 AM his speech symptoms started which places him outside of a 6 hour window for intervention. Based on this patient is not a TPA candidate. CT demonstrates infarction in the left occipital and posterior temporal lobes. Neuro consulted as well as cardiology Acute CVA (cerebral vascular accident) involving left occipital and temporal lobe -- Cerebral edema on 09/19- MS improved with Decadron history of previous CVA per friend at bedside 09/17 - was ambulating independently occasionally uses a cane Mild expressive aphasia - Neurologically Improving- - spoke more today - Head CT acute infarction on left occipital and and inferior temporal lobe. 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 Valencia ff- continue Decadron - 4-5 days - d/w Dr. Salmeron- she will continue this in Rehab and taper Episode of NSVT 09/17- on telemetry- Paroxysmal a fib- rate controlled- telemetry in SR mild elevated troponin in the setting of CVA on admission Uncotnrolled HYpertension HYperlipidemia -EKG reviewed with ST changes in leads II, III, aVF and with RBBB, LAD, LAHB - Aspirin 325mg daily eventually start Eliquis- held for now due to edema per Dr. Valencia - Lipitor 40mg po qhs -=continue on 50 mg po q 8- - Procardia increased to 60 mg XL daily - HCTZ 25 mg po daily - ECHO - EF 50%. - Clonidine prn for SBP >160 - Hydralazine 25 mg po q8- will increase to 50 mg po q8 - HIV (human immunodeficiency virus infection) - Patient had seen hematology/oncology about ~11 years ago and diagnosed with HIV - Will need to establish care to be provided as an outpatient Acute KI r/o underlying CKI - creatinine stable - non oliguric - Lung Infilatrate on CXR- left- possible aspiration scenario based on clinical status and location continue on augmentin 875 mg po bid- will complete course and put a stop date Pyuria- final C and s- Lactobacillus- nomral kristie Discontinue Levaquin Iron deficiency anemia - Ferrous sulfate 325 mg po bid On Heparin SQ q12 CM consulted- referral to [facility] today informed patient and family at bedside Pt Condition on Discharge: Stable Discharge Disposition: Rehab Inpatient Discharge Time: > 30 minutes Discharge Instructions DIET: Follow Instructions for: Heart Healthy Diet Speech Therapy-Diet Recommends: Mechanical Soft, Chopped Meat w/Gravy Activities you can perform: Weight Bearing as Reese Other Activity Instructions: PT/OT daily supervision Follow up Referrals: Neurology - 1 Week with Anoop Valencia PhD MD New Medications: Amoxicillin-Clavulanate (Amoxicillin-Clavulanate) 875-125 mg Tab 875 MG PO Q12HR for Infection for 3 Days, TAB not for use in CrCl <30 mL/minute Clonidine (Catapres) 0.1 Mg Tab 0.1 MG PO Q6H PRN for SBP>160, DBP>90 for 10 Days, #40 TAB Dexamethasone (Dexamethasone) 4 Mg Tab 4 MG PO Q8HR for brain edema for 7 Days, #21 TAB Ferrous Sulfate (Ferosul) 325 Mg (65 Mg Iron) Tablet 325 MG PO BID@12,17 for anemia, #60 TAB 0 Refills Hydralazine HCl (Hydralazine HCl) 25 Mg Tablet 25 MG PO Q8HR for HTN for 30 Days, #90 TAB Hydrochlorothiazide (Hydrochlorothiazide) 25 Mg Tab 25 MG PO DAILY for HTN for 30 Days, #30 TAB 1 Refill Metoprolol Tartrate (Lopressor) 50 Mg Tab 50 MG PO Q8HR for HTN for 30 Days, #90 TAB Nifedipine ER 24 HR (Nifedipine ER 24 HR) 60 Mg Tab 60 MG PO DAILY for HTN for 30 Days, #30 TAB [Heparin Inj] () 81522 UNITS/ML INJ 5000 UNITS SQ Q12H for proph for 5 Days Continued Medications: Aspirin (Aspirin) 325 Mg Tab 325 MG PO DAILY, #30 TAB 0 Refills Atorvastatin (Atorvastatin) 40 Mg Tab 40 MG PO DAILY for Cholesterol Management, #30 TAB 0 Refills Njvourqnp-Feeljjjztchbz-Qbcbiirpc (Atripla) 600-200-300 Mg Tab 1 TAB PO DAILY for Mgmt Viral Infection, #30 TAB 0 Refills Take on an empty stomach. Tamsulosin (Tamsulosin) 0.4 Mg Cap 0.4 MG PO DAILY for Manage Prostate Problems, #30 CAP 0 Refills Discontinued Medications: Amlodipine (Amlodipine) 5 Mg Tab 5 MG PO DAILY for Blood Pressure Management, #30 TAB 0 Refills Mercedes Johnson MD Sep 23, 2017 10:11
[2017-09-23] MEDS ORDERED: hydrALAZINE HCL 25 MG TAB PO SCH (14:00)
[2017-09-23] MEDS ORDERED: DEXAMETHASONE 4 MG TAB PO SCH (14:00)
== END 2017-09-23 12:15 | DRG 64 ==
LOC: NEPC 16:52 → NEDA 18:06 → N05B 20:11
PROVIDERS: ADMIT Internal Medicine; ATTEND Internal Medicine
DX: I63.8 Other cerebral infarction (principal); G93.6 Cerebral edema; I47.2 Ventricular tachycardia; N17.9 Acute kidney failure, unspecified; I48.0 Paroxysmal atrial fibrillation; I69.351 Hemiplegia and hemiparesis following cerebral infarction affecting right dominant side; R47.01 Aphasia; R29.810 Facial weakness; I10 Essential (primary) hypertension; Q21.1 Atrial septal defect; Z21 Asymptomatic human immunodeficiency virus [HIV] infection status; Z91.14 Patient's other noncompliance with medication regimen; R91.8 Other nonspecific abnormal finding of lung field; E78.5 Hyperlipidemia, unspecified; D50.9 Iron deficiency anemia, unspecified; Z23 Encounter for immunization
CPT/HCPCS: 70450; 70496; 70498; 70544; 70551; 71010; 76775; 80048; 80053; 80061; 80307; 81001; 82435; 82550; 82552; 82565; 82728; 82947; 82948; 83036; 83540; 83550; 84132; 84295; 84443; 84484; 84520; 85025; 85027; 85384; 85610; 85730; 86355; 86357; 86359; 86360; 86850; 86900; 86901; 87040; 87086; 90686; 90732; 93005; 93306; J1100; J1644; J1815; J1956; J2405; J7030; Q2038; Q9967

== ENCOUNTER 2017-10-03 12:49 | Inpatient (IN) | payer MEDICARE ==
[2017-10-03] VITALS (18 sets, daily range): BP systolic 119–146; BP diastolic 69–96; PULSE 62–176; RESP 14–20; TEMP 97.8–97.9; O2SAT 99–100
[~2017-10-03] VITALS: Ht 167.6 cm; Wt 67.2 kg
[~2017-10-03 12:49] MED LIST changes: -AMLO5TAB2 PO; +AMOX875T2 PO; +CLON.1 PO; +COUG100S PO; +DEXA4TAB PO; +EFAV200 PO; +FERR325T20 PO; +FLUO10CA4 PO; +HYDR-3799 PO; +HYDR25TA5 PO; +Heparin Inj SQ; +METO-309 PO; +Megestrol Liq PO; +NIFE60TA8 PO; +PANT40TA3 PO; +PERI PO; +TAMS5CAP PO; +TRUV200300 PO; +ZOSY4.5P IV
[2017-10-03] MEDS ORDERED: cloNIDine HCL 0.1 MG TAB PO PRN ×2 (13:00→14:15)
[2017-10-03] MEDS ORDERED: NITROGLYCERIN 0.4 MG SL 25 TABS/BTL SL PRN (14:30)
[2017-10-03] MEDS ORDERED: HEPARIN-D5W 25,000 U/250 ML 250 ML IV PRN ×2 (14:30→15:15)
[2017-10-03] MEDS ORDERED: oxyCODONE/ACETAMINOPHEN 10 MG/325 MG TAB PO PRN (14:30)
[2017-10-03] MEDS ORDERED: SODIUM CHLORIDE 0.9% FLUSH 10 ML FLUSH IV FLUSH PRN ×3 (14:30)
[2017-10-03] MEDS ORDERED: DILTIAZEM INJ 125 MG in SODIUM CHLORIDE 0.9% INJ 100 ML IV PRN (14:30)
[2017-10-03] MEDS ORDERED: MORPHINE SULFATE 2 MG/ML INJ IV PUSH PRN ×2 (14:30)
[2017-10-03] MEDS ORDERED: ALPRAZolam 0.25 MG TAB PO PRN (14:30)
[2017-10-03] MEDS ORDERED: MORPHINE SULFATE 2 MG/ML INJ IV PUSH ONE (14:30)
[2017-10-03] MEDS ORDERED: BISACODYL 10 MG SUPP RECTAL PRN (14:30)
[2017-10-03] MEDS ORDERED: LACTULOSE SYRUP 20 GM/30 ML CUP PO PRN (14:30)
[2017-10-03] MEDS ORDERED: NALOXONE HCL 0.4 MG/ML AMP IV PUSH PRN (14:30)
[2017-10-03] MEDS ORDERED: DILTIAZEM HCL 25 MG/5 ML VIAL IV PUSH ONE (14:30)
[2017-10-03] MEDS ORDERED: SENNOSIDES 8.6 MG TAB PO PRN (14:30)
[2017-10-03] MEDS ORDERED: METOCLOPRAMIDE HCL 10 MG/2 ML VIAL IV PUSH PRN (14:30)
[2017-10-03] MEDS ORDERED: ASPIRIN 325 MG TAB PO SCH (14:30)
[2017-10-03] MEDS ORDERED: ONDANSETRON HCL 4 MG/2 ML VIAL IVP PRN (14:30)
[2017-10-03] MEDS ORDERED: ACETAMINOPHEN 325 MG TAB PO PRN ×2 (14:30)
[2017-10-03] MEDS ORDERED: NITROGLYCERIN-D5W 50 MG/250 ML 250 ML IV PRN ×2 (14:30→15:15)
[2017-10-03] MEDS ORDERED: oxyCODONE/ACETAMINOPHEN 5 MG/325 MG TAB PO PRN (14:30)
[2017-10-03] MEDS ORDERED: MAGNESIUM HYDROXIDE SUSP 30 ML CUP PO PRN (14:30)
--- NOTE | 2017-10-03 14:59 | HHI.HP ---
[facility] Service [facility] Primary Care Physician Unknown Admission Diagnosis Chest Pain atrial fibrillation Diagnoses: (1) Hemiplegia affecting dominant side Diagnosis: Secondary (2) Impaired mobility and activities of daily living Diagnosis: Secondary (3) Aphasia Diagnosis: Secondary (4) Hypertension Diagnosis: Secondary (5) Hyperlipidemia Diagnosis: Secondary (6) Atrial fibrillation Diagnosis: Principal (7) Anemia Diagnosis: Secondary (8) CVA (cerebral vascular accident) Diagnosis: Principal (9) Aspiration into airway Diagnosis: Secondary (10) HIV (human immunodeficiency virus infection) Diagnosis: Secondary (11) Elevated troponin Diagnosis: Principal (12) CVA (cerebral vascular accident) Diagnosis: Secondary (13) Hematuria Diagnosis: Secondary (14) NSTEMI (non-ST elevated myocardial infarction) Diagnosis: Principal (15) irond def anemia Diagnosis: Secondary Chief Complaint: Elevated troponin and atrial fibrillation with RVR and chest pain Travel History International Travel<30 Days: No Contact w/Intl Traveler <30 Da: No History of Present Illness Patient is a 72-year-old right-handed dominant male who was initially up in rehabilitation At [facility]. While at [facility]. Patient was noted to have A. fib with RVR noted to have positive troponins was therefore readmitted to the inpatient service under my service will consult cardiology will keep him on a Cardizem drip will give him medications for the chest pain. Ask cardiology to come and see the patient as soon as possible. And continue monitoring heparin drip as well as a Cardizem drip at this time Patient has a history of multiple strokes. Also noted to have on echo and EF of 50% with a patent foramen ovale Has history of ventricular tachycardia and paroxysmal atrial fibrillation Also had some aspiration pneumonia Is having issues with hematuria but will have to be on full anticoagulation due to the positive troponins and chest pain and non-STEMI Patient was therefore transferred back to inpatient for evaluation and treatment Review of Systems ROS Limitations: Clinical Condition, Language Barrier (patient is aphasic), Speech Impaired Constitutional: DENIES: Diaphoretic episodes, Fatigue, Fever, Weight gain, Weight loss, Chills, Dizziness, Change in appetite Endocrine: DENIES: Heat/cold intolerance, Polydipsia, Polyuria, Polyphagia Eyes: DENIES: Blurred vision, Diplopia, Eye inflammation Ears, nose, mouth, throat: DENIES: Tinnitus, Hearing loss, Vertigo, Nasal discharge Respiratory: DENIES: Apneas, Cough, Snoring, Wheezing, Hemoptysis, Sputum production Cardiovascular: COMPLAINS OF: Chest pain, Palpitations, DENIES: Syncope, Dyspnea on Exertion, PND Gastrointestinal: DENIES: Abdominal pain, Black stools, Bloody stools, Constipation Genitourinary: COMPLAINS OF: Hematuria (Roa catheter in place), DENIES: Sexual dysfunction, Urinary frequency Musculoskeletal: DENIES: Joint pain, Muscle aches, Stiffness, Joint Swelling Integumentary: DENIES: Abnormal pigmentation, Nail changes Hematologic/lymphatic: DENIES: Bruising, Lymphadenopathy Immunologic/allergic: DENIES: Eczema, Urticaria Neurologic: COMPLAINS OF: Abnormal gait, Poor Balance, DENIES: Headache, Localized weakness Psychiatric: COMPLAINS OF: Confusion, DENIES: Anxiety, Mood changes, Depression , Hallucinations, Agitation, Suicidal Ideation Except as stated in HPI: all other systems reviewed are Neg Past Family Social History Past Medical History Multiple CVAs Patent Foramen ovale HIV positive Atrial fibrillation Hypertension Hematuria Poor dentition Hyperlipidemia Recent aspiration pneumonia Iron deficiency anemia BPH Past Surgical History Lumbar fusion Reported Medications Reported Meds & Active Scripts Active Zosyn Inj (Piperacillin Sod/Tazobactam Sod) 4.5 Gram Inj 4.5 Gm IV Q8H 3 Days [Megestrol Liq] 400 MG/10 ML Susp 400 Mg PO DAILY 30 Days Dexamethasone 4 Mg Tab 4 Mg PO Q8HR 30 Days Pantoprazole (Pantoprazole Sodium) 40 Mg Tab 40 Mg PO DAILY 30 Days Gnp Senna Plus 8.6-50 mg (Sennosides-Docusate Sodium) 8.6 Mg-50 Mg Tab 1 Tab PO BID 30 Days Cough Syrup (Guaifenesin) 100 Mg/5 Ml Syrp 200 Mg PO BID 30 Days Hydrochlorothiazide 25 Mg Tab 25 Mg PO DAILY 30 Days Fluoxetine (Pmdd) 10 Mg Cap 10 Mg PO DAILY@0800 30 Days Nifedipine ER 24 HR (Nifedipine) 60 Mg Tab 60 Mg PO DAILY 30 Days Lopressor (Metoprolol Tartrate) 50 Mg Tab 50 Mg PO Q8HR 30 Days Hydralazine HCl 25 Mg Tablet 25 Mg PO Q8HR 30 Days Catapres (Clonidine) 0.1 Mg Tab 0.1 Mg PO Q6H PRN 30 Days Atorvastatin (Atorvastatin Calcium) 40 Mg Tab 40 Mg PO DAILY 30 Days Ferosul (Ferrous Sulfate) 325 Mg (65 Mg Iron) Tablet 325 Mg PO BID@,17 30 Days Flomax (Tamsulosin HCl) 0.4 Mg Cap 0.4 Mg PO DAILY 30 Days Truvada (Emtricitabine-Tenofovir Disoproxil Fumarate) 200-300 Mg Tab 1 Tab PO HS 30 Days Sustiva (Efavirenz) 200 Mg Cap 600 Mg PO HS 30 Days Hydralazine HCl 25 Mg Tablet 25 Mg PO Q8HR 30 Days Lopressor (Metoprolol Tartrate) 50 Mg Tab 50 Mg PO Q8HR 30 Days Catapres (Clonidine) 0.1 Mg Tab 0.1 Mg PO Q6H PRN 10 Days [Heparin Inj] 59353 UNITS/ML Inj 5,000 Units SQ Q12H 5 Days Dexamethasone 4 Mg Tab 4 Mg PO Q8HR 7 Days Hydrochlorothiazide 25 Mg Tab 25 Mg PO DAILY 30 Days Nifedipine ER 24 HR (Nifedipine) 60 Mg Tab 60 Mg PO DAILY 30 Days Ferosul (Ferrous Sulfate) 325 Mg (65 Mg Iron) Tablet 325 Mg PO BID@ Amoxicillin-Clavulanate 875-125 mg Tab 875 Mg PO Q12HR 3 Days not for use in CrCl <30 mL/minute Reported Hydrochlorothiazide 12.5 Mg Cap 12.5 Mg PO DAILY Atorvastatin (Atorvastatin Calcium) 40 Mg Tab 40 Mg PO DAILY Tamsulosin (Tamsulosin HCl) 0.4 Mg Cap 0.4 Mg PO DAILY Aspirin 325 Mg Tab 325 Mg PO DAILY Atripla (Cjxlokcrr-Mxdmzxdqxohvd-Ournektaw) 600-200-300 Mg Tab 1 Tab PO DAILY Take on an empty stomach. Allergies: Coded Allergies: No Known Allergies (Verified Allergy, Unknown, 09/15/17) Active Ordered Medications Current Medications Clonidine (Catapres) 0.1 mg Q4H PRN PO SBP>160, DBP>90; Start 10/03/17 at 13:00 Aspirin (Aspirin) 325 mg DAILY PO ; Start 10/04/17 at 09:00 Atorvastatin Calcium (Lipitor) 40 mg DAILY PO ; Start 10/04/17 at 09:00 Clonidine (Catapres) 0.1 mg Q6H PRN PO SBP>160, DBP>90; Start 10/03/17 at 14:15 Efavirenz (Sustiva) 600 mg HS PO ; Start 10/03/17 at 21:00 Emtricitabine/ Tenofovir (Truvada 200-300 Mg) 1 tab HS PO ; Start 10/03/17 at 21: 00 Ferrous Sulfate (Ferrous Sulfate) 325 mg BID@12,17 PO ; Start 10/03/17 at 17:00; Status UNV Fluoxetine HCl (PROzac) 10 mg DAILY PO ; Start 10/04/17 at 09:00; Status UNV Guaifenesin (Robitussin Liq) 200 mg BID PO ; Start 10/03/17 at 21:00; Status UNV Hydralazine HCl (Apresoline) 25 mg Q8HR PO ; Start 10/03/17 at 22:00; Status UNV Hydrochlorothiazide (Hydrodiuril) 25 mg DAILY PO ; Start 10/04/17 at 09:00; Status UNV Metoprolol Tartrate (Lopressor) 50 mg Q8HR PO ; Start 10/03/17 at 22:00; Status UNV Nifedipine (Procardia Xl) 60 mg DAILY PO ; Start 10/04/17 at 09:00; Status UNV Pantoprazole Sodium (Protonix) 40 mg DAILY PO ; Start 10/04/17 at 09:00; Status UNV Piperacillin Sod/ Tazobactam Sod (Zosyn 4.5 Gm Vial) 4.5 gm Q8H IV ; Start at 14:15; Status UNV Senna/Docusate Sodium (Amy-Colace) 1 tab BID PO ; Start 10/03/17 at 21:00; Status UNV Tamsulosin HCl (Flomax) 0.4 mg DAILY PO ; Start 10/04/17 at 09:00; Status UNV Non-Formulary Medication 1 tab DAILY PO ; Start 10/04/17 at 09:00; Status UNV Non-Formulary Medication 400 mg DAILY PO ; Start 10/04/17 at 09:00; Status UNV Morphine Sulfate (Morphine Inj) 4 mg ONCE ONCE IV PUSH ; Start 10/03/17 at 14:30 ; Stop 10/03/17 at 14:31; Status UNV Morphine Sulfate (Morphine Inj) 4 mg Q3H PRN IV PUSH pain 6-10; Start 10/03/17 at 14:30; Status UNV Sodium Chloride (NS Flush) 2 ml BID IV FLUSH ; Start 10/03/17 at 21:00; Status UNV Sodium Chloride (NS Flush) 2 ml UNSCH PRN IV FLUSH FLUSH AFTER USING IV ACCESS ; Start 10/03/17 at 14:30; Status UNV Nitroglycerin/ Dextrose 250 ml @ 1.5 mls/hr TITRATE PRN IV Keep SBP > 90 mmHg ; Start 10/03/17 at 14:30; Status UNV Aspirin (Aspirin) 325 mg NOW PO ; Start 10/03/17 at 14:30; Stop 10/04/17 at 14:29 ; Status UNV Aspirin (Ecotrin Ec) 325 mg DAILY PO ; Start 10/04/17 at 09:00; Status UNV Nitroglycerin (Nitroglycerin 2% Oint) 1 inch Q6H TOP ; Start 10/03/17 at 14:30; Status UNV Nitroglycerin (Nitrostat Sl) 0.4 mg Q5M PRN SL CHEST PAIN; Start 10/03/17 at 14: 30; Status UNV Morphine Sulfate (Morphine Inj) 2 mg Q30M PRN IV PUSH CHEST PAIN; Start at 14:30; Status UNV Alprazolam (Xanax) 0.25 mg Q8H PRN PO ANXIETY; Start 10/03/17 at 14:30; Status UNV Heparin Sodium/ Dextrose 250 ml @ 0 mls/hr TITRATE PRN IV Coagulation Management; Start 10/03/17 at 14:30; Status UNV Sodium Chloride (NS Flush) 2 ml UNSCH PRN IV FLUSH FLUSH AFTER USING IV ACCESS ; Start 10/03/17 at 14:30; Status UNV Sodium Chloride (NS Flush) 2 ml BID IV FLUSH ; Start 10/03/17 at 21:00; Status UNV Acetaminophen (Tylenol) 650 mg Q4H PRN PO TEMP > 100.4; Start 10/03/17 at 14:30 ; Status UNV Ondansetron HCl (Zofran Inj) 4 mg Q6H PRN IVP NAUSEA OR VOMITING; Start at 14:30; Status UNV Metoclopramide HCl (Reglan Inj) 5 mg Q6H PRN IV PUSH NAUSEA OR VOMITING; Start 10/03/17 at 14:30; Status UNV Acetaminophen (Tylenol) 650 mg Q6H PRN PO PAIN SCALE 1 TO 2; Start 10/03/17 at 14:30; Status UNV Oxycodone/ Acetaminophen (Percocet 5-325 Mg) 1 tab Q6H PRN PO PAIN SCALE 3 TO 5; Start 10/03/17 at 14:30; Status UNV Oxycodone/ Acetaminophen (Percocet 10-325 Mg) 1 tab Q6H PRN PO PAIN SCALE 6 TO 10; Start 10/03/17 at 14:30; Status UNV Morphine Sulfate (Morphine Inj) 2 mg Q3H PRN IV PUSH Pain 3-5; if unable to take PO; Start 10/03/17 at 14:30; Status UNV Naloxone HCl (Narcan Inj) 0.4 mg UNSCH PRN IV PUSH SEE LABEL COMMENTS; Start at 14:30; Status UNV Senna/Docusate Sodium (Amy-Colace) 1 tab BID PO ; Start 10/03/17 at 21:00; Status UNV Magnesium Hydroxide (Milk Of Magnesia Liq) 30 ml Q12H PRN PO Mild constipation ; Start 10/03/17 at 14:30; Status UNV Sennosides (Senokot) 17.2 mg Q12H PRN PO Moderate constipation; Start 10/03/17 at 14:30; Status UNV Bisacodyl (Dulcolax Supp) 10 mg DAILY PRN RECTAL SEVERE CONSITIPATION; Start at 14:30; Status UNV Lactulose (Lactulose Liq) 30 ml DAILY PRN PO SEVERE CONSITIPATION; Start at 14:30; Status UNV Family History Unable to obtain from the patient Social History Previously lived with a girlfriend Assessment smoke does not drink Physical Exam Physical Exam GENERAL: This is a well-nourished, well-developed patient, appears to be in moderate distress SKIN: No rashes, ecchymoses or lesions. Cool and dry. HEAD: Atraumatic. Normocephalic. No temporal or scalp tenderness. EYES: Pupils equal round and reactive. No scleral icterus. No injection or drainage. Disconjugate gaze to the left ENT: Nose without bleeding, purulent drainage or septal hematoma. Throat without erythema, tonsillar hypertrophy or exudate. Uvula midline. Airway patent. NECK: Trachea midline. No JVD or lymphadenopathy. Supple, nontender, no meningeal signs. CARDIOVASCULAR: IRRegular rate and rhythm without murmurs, gallops, or rubs. S1 and S2 no S3 or S4 RESPIRATORY: Coarse breath sounds bilaterally. Breath sounds equal bilaterally. No wheezes, rales, or rhonchi. GASTROINTESTINAL: Abdomen soft, non-tender, nondistended. No hepato-splenomegaly , or palpable masses. No guarding. MUSCULOSKELETAL: Extremities without clubbing, cyanosis, or edema. No joint tenderness, effusion, or edema noted. No calf tenderness. Negative Homans sign bilaterally. NEUROLOGICAL: Awake and alert. Cranial nerves II through XII intact. Motor and sensory grossly within normal limits.3 out of 5 muscle strength in all muscle groups. No speech. Is aphasic Right side flaccid Left side very weak can move the left lower extremity Can barely move the left upper extremity Is quite aphasic Not able to assess insight and judgment Not able to assess mood or behavior Caprini VTE Risk Assessment Caprini VTE Risk Assessment: Mod/High Risk (score >= 2) Caprini Risk Assessment Model Point Value = 1 Point Value = 2 Point Value = 3 Point Value = 5 Age 41-60 Minor surgery BMI > 25 kg/m2 Swollen legs Varicose veins or History of unexplained or recurrent spontaneous Oral contraceptives or hormone replacement Sepsis (< 1 month) Serious lung disease, including pneumonia (< 1 month) Abnormal pulmonary function Acute myocardial infarction Congestive heart failure (< 1 month) History of inflammatory bowel disease Medical patient at bed rest Age 61-74 Arthroscopic surgery Major open surgery (> 45 min) Laparoscopic surgery (> 45 min) Malignancy Confined to bed (> 72 hours) Immobilizing plaster cast Central venous access Age >= 75 History of VTE Family history of VTE Factor V Leiden Prothrombin [id number] Lupus anticoagulant Anticardiolipin antibodies Elevated serum homocysteine Heparin-induced thrombocytopenia Other congenital or acquired thrombophilia Stroke (< 1 month) Elective arthroplasty Hip, pelvis, or leg fracture Acute spinal cord injury (< 1 month) Prophylaxis Regimen Total Risk Factor Score Risk Level Prophylaxis Regimen 0-1 Low Early ambulation 2 Moderate Order ONE of the following: *Sequential Compression Device (SCD) *Heparin 5000 units SQ BID 3-4 Higher Order ONE of the following medications: *Heparin 5000 units SQ TID *Enoxaparin/Lovenox 40 mg SQ daily (WT < 150 kg, CrCl > 30 mL/min) *Enoxaparin/Lovenox 30 mg SQ daily (WT < 150 kg, CrCl > 10-29 mL/min) *Enoxaparin/Lovenox 30 mg SQ BID (WT < 150 kg, CrCl > 30 mL/min) AND/OR *Sequential Compression Device (SCD) 5 or more Highest Order ONE of the following medications: *Heparin 5000 units SQ TID (Preferred with Epidurals) *Enoxaparin/Lovenox 40 mg SQ daily (WT < 150 kg, CrCl > 30 mL/min) *Enoxaparin/Lovenox 30 mg SQ daily (WT < 150 kg, CrCl > 10-29 mL/min) *Enoxaparin/Lovenox 30 mg SQ BID (WT < 150 kg, CrCl > 30 mL/min) AND *Sequential Compression Device (SCD) Assessment and Plan Assessment and Plan Chest pain with positive troponins and acute chest pain with EKG changes Started on heparin drip Morphine Beta blockers Cardizem drip Consults cardiology A. fib with RVR Trend troponins Consult cardiology Pain control with morphine Beta blockers and Cardizem drip Recent CVA with right-sided weakness and severe aphasia with some possible dysphagia Impaired mobility Physical therapy and occupational therapy once stable Hemiplegia affecting the right side Physical therapy and occupational therapy as able Aphasia Speech therapy to continue to aggressively work with Anemia monitor labs has iron deficiency anemia Atrial fibrillation Positive troponins Started on heparin Cardiology input Hematuria urology input Continue Roa Flush Roa as needed History of aspiration continue on Zosyn Hyperlipidemia continue on statin Hypertension continue home medications HIV continue on his TRUVADA AND EFAVVIRENZ Code Status FULL CODE Discussed Condition With CARDIO AND RN AND VOICE INTERCEPT TECHNICIAN AND REHAB Physician Certification 2 Midnight Certification Type: Admission for Inpatient Services Order for Inpatient Services The services are ordered in accordance with Medicare regulations or non- Medicare payer requirements, as applicable. In the case of services not specified as inpatient-only, they are appropriately provided as inpatient services in accordance with the 2-midnight benchmark. Estimated LOS (days): 5 5 days is the estimated time the patient will need to remain in the hospital, assuming treatment plan goals are met and no additional complications. Post-Hospital Plan: Not yet determined Rob Chase DO Oct 03, 2017 14:59
[2017-10-03] MEDS ORDERED: PIPERACILLIN/TAZOBACTAM SOD 4.5 GM VIAL IV SCH (15:00)
[2017-10-03] MEDS ORDERED: DILTIAZEM HCL 25 MG/5 ML VIAL IV PUSH PRN (15:00)
--- NOTE | 2017-10-03 15:10 | PD.CARD.PN ---
Subjective Subjective Remarks No chest pain when I saw him Objective Medications Current Medications Medications (Trade) Dose Ordered Sig/Eyal Route Start Time Stop Time Status Last Admin (Catapres) 0.1 mg Q4H PRN PO 10/03/17 13:00 (Aspirin) 325 mg DAILY PO 10/04/17 09:00 (Lipitor) 40 mg DAILY PO 10/04/17 09:00 (Catapres) 0.1 mg Q6H PRN PO 10/03/17 14:15 (Sustiva) 600 mg HS PO 10/03/17 21:00 (Truvada 200-300 Mg) 1 tab HS PO 10/03/17 21:00 (Ferrous Sulfate) 325 mg BID@12,17 PO 10/03/17 17:00 (PROzac) 10 mg DAILY PO 10/04/17 09:00 (Robitussin Liq) 200 mg BID PO 10/03/17 21:00 (Apresoline) 25 mg Q8HR PO 10/03/17 22:00 (Hydrodiuril) 25 mg DAILY PO 10/04/17 09:00 (Lopressor) 50 mg Q8HR PO 10/03/17 22:00 (Procardia Xl) 60 mg DAILY PO 10/04/17 09:00 (Protonix) 40 mg DAILY PO 10/04/17 09:00 (Zosyn 4.5 Gm Vial) 4.5 gm Q8H IV 10/03/17 15:00 (Amy-Colace) 1 tab BID PO 10/03/17 21:00 (Flomax) 0.4 mg DAILY PO 10/04/17 09:00 (Megace Liq) 400 mg DAILY PO 10/04/17 09:00 (Morphine Inj) 4 mg Q3H PRN IV PUSH 10/03/17 14:30 (NS Flush) 2 ml BID IV FLUSH 10/03/17 21:00 (NS Flush) 2 ml UNSCH PRN IV FLUSH 10/03/17 14:30 (Aspirin) 325 mg NOW PO 10/03/17 14:30 10/04/17 14:29 (Nitroglycerin 2% Oint) 1 inch Q6H TOP 10/03/17 16:00 (Nitrostat Sl) 0.4 mg Q5M PRN SL 10/03/17 14:30 (Morphine Inj) 2 mg Q30M PRN IV PUSH 10/03/17 14:30 (Xanax) 0.25 mg Q8H PRN PO 10/03/17 14:30 (NS Flush) 2 ml UNSCH PRN IV FLUSH 10/03/17 14:30 (NS Flush) 2 ml BID IV FLUSH 10/03/17 21:00 (Tylenol) 650 mg Q4H PRN PO 10/03/17 14:30 (Zofran Inj) 4 mg Q6H PRN IVP 10/03/17 14:30 (Reglan Inj) 5 mg Q6H PRN IV PUSH 10/03/17 14:30 (Tylenol) 650 mg Q6H PRN PO 10/03/17 14:30 (Percocet 5-325 Mg) 1 tab Q6H PRN PO 10/03/17 14:30 (Percocet 10-325 Mg) 1 tab Q6H PRN PO 10/03/17 14:30 (Morphine Inj) 2 mg Q3H PRN IV PUSH 10/03/17 14:30 (Narcan Inj) 0.4 mg UNSCH PRN IV PUSH 10/03/17 14:30 (Amy-Colace) 1 tab BID PO 10/03/17 21:00 (Milk Of Magnesia Liq) 30 ml Q12H PRN PO 10/03/17 14:30 (Senokot) 17.2 mg Q12H PRN PO 10/03/17 14:30 (Dulcolax Supp) 10 mg DAILY PRN RECTAL 10/03/17 14:30 (Lactulose Liq) 30 ml DAILY PRN PO 10/03/17 14:30 (NS Flush) 2 ml UNSCH PRN IV FLUSH 10/03/17 14:30 (NS Flush) 2 ml BID IV FLUSH 10/03/17 21:00 (Cardizem Inj) 20 mg UNSCH X1 PRN IV PUSH 10/03/17 15:00 10/04/17 14:59 Nitroglycerin/ Dextrose 250 ml @ 1.5 mls/hr TITRATE PRN IV 10/03/17 15:15 Heparin Sodium/ Dextrose 250 ml @ 9 mls/hr TITRATE PRN IV 10/03/17 15:15 Diltiazem HCl 125 mg/Sodium Chloride 125 ml @ 5 mls/hr TITRATE PRN IV 10/03/17 15:15 (Eliquis) 5 mg BID PO 10/03/17 21:00 (Cardizem) 60 mg Q6HR PO 10/03/17 18:00 UNV Physical Exam Awake but lethargic Chest clear ant CV S1S2 irr irr tachy Ekg AF RVR and also MAT No edema Assessment and Plan Problem List: (1) CVA (cerebral vascular accident) ICD Codes: I63.9 - Cerebral infarction, unspecified Status: Acute (2) Elevated troponin ICD Codes: R79.89 - Other specified abnormal findings of blood chemistry Status: Acute Plan: conservative therapy (3) Atrial fibrillation ICD Codes: I48.91 - Unspecified atrial fibrillation Status: Chronic Plan: Change ASA to Eliquis. Add PO diltiazem Frank Miranda MD Oct 03, 2017 15:10
[2017-10-03] MEDS: DILTIAZEM INJ 125 MG in SODIUM CHLORIDE 0.9% INJ 100 ML IV PRN (15:47)
[2017-10-03 17:05] LABS: HEMATOCRIT 37.6 % (39.0-51.0); MEAN CORPUSCULAR HEMOGLOBIN 23.7 PG (27.0-34.0); MEAN PLATELET VOLUME 9.7 FL (7.0-11.0); PLATELET COUNT 260 TH/MM3 (150-450); RED BLOOD COUNT 5.08 MIL/MM3 (4.50-5.90); RED CELL DISTRIBUTION WIDTH 19.2 % (11.6-17.2); WHITE BLOOD COUNT 7.7 TH/MM3 (4.0-11.0)
[2017-10-03 17:16] LABS: INTERNATIONAL NORMALIZED RATIO 1.3 RATIO; PROTHROMBIN TIME - PATIENT 12.8 SEC (9.8-11.6)
[2017-10-03 17:29] LABS: TROPONIN I 0.32 NG/ML (0.02-0.05)
--- NOTE | 2017-10-03 17:30 | HHI.PR ---
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 [facility] D/C decadron since edema is reduced. Diagnosis/Plan: Subjective Subjective Comments No new neurologic sx Active Medications Current Medications Medications (Trade) Dose Ordered Sig/Eyal Route Start Time Stop Time Status Last Admin (Catapres) 0.1 mg Q4H PRN PO 10/03/17 13:00 (Lipitor) 40 mg DAILY PO 10/04/17 09:00 (Catapres) 0.1 mg Q6H PRN PO 10/03/17 14:15 (Sustiva) 600 mg HS PO 10/03/17 21:00 (Truvada 200-300 Mg) 1 tab HS PO 10/03/17 21:00 (Ferrous Sulfate) 325 mg BID@12,17 PO 10/03/17 17:00 (PROzac) 10 mg DAILY PO 10/04/17 09:00 (Robitussin Liq) 200 mg BID PO 10/03/17 21:00 (Apresoline) 25 mg Q8HR PO 10/03/17 22:00 (Hydrodiuril) 25 mg DAILY PO 10/04/17 09:00 (Lopressor) 50 mg Q8HR PO 10/03/17 22:00 (Protonix) 40 mg DAILY PO 10/04/17 09:00 (Amy-Colace) 1 tab BID PO 10/03/17 21:00 (Flomax) 0.4 mg DAILY PO 10/04/17 09:00 (Megace Liq) 400 mg DAILY PO 10/04/17 09:00 (Morphine Inj) 4 mg Q3H PRN IV PUSH 10/03/17 14:30 (NS Flush) 2 ml BID IV FLUSH 10/03/17 21:00 (NS Flush) 2 ml UNSCH PRN IV FLUSH 10/03/17 14:30 (Aspirin) 325 mg NOW PO 10/03/17 14:30 10/04/17 14:29 (Nitroglycerin 2% Oint) 1 inch Q6H TOP 10/03/17 16:00 (Nitrostat Sl) 0.4 mg Q5M PRN SL 10/03/17 14:30 (Morphine Inj) 2 mg Q30M PRN IV PUSH 10/03/17 14:30 (Xanax) 0.25 mg Q8H PRN PO 10/03/17 14:30 (NS Flush) 2 ml UNSCH PRN IV FLUSH 10/03/17 14:30 (NS Flush) 2 ml BID IV FLUSH 10/03/17 21:00 (Tylenol) 650 mg Q4H PRN PO 10/03/17 14:30 (Zofran Inj) 4 mg Q6H PRN IVP 10/03/17 14:30 (Reglan Inj) 5 mg Q6H PRN IV PUSH 10/03/17 14:30 (Tylenol) 650 mg Q6H PRN PO 10/03/17 14:30 (Percocet 5-325 Mg) 1 tab Q6H PRN PO 10/03/17 14:30 (Percocet 10-325 Mg) 1 tab Q6H PRN PO 10/03/17 14:30 (Morphine Inj) 2 mg Q3H PRN IV PUSH 10/03/17 14:30 (Narcan Inj) 0.4 mg UNSCH PRN IV PUSH 10/03/17 14:30 (Amy-Colace) 1 tab BID PO 10/03/17 21:00 (Milk Of Magnesia Liq) 30 ml Q12H PRN PO 10/03/17 14:30 (Senokot) 17.2 mg Q12H PRN PO 10/03/17 14:30 (Dulcolax Supp) 10 mg DAILY PRN RECTAL 10/03/17 14:30 (Lactulose Liq) 30 ml DAILY PRN PO 10/03/17 14:30 (NS Flush) 2 ml UNSCH PRN IV FLUSH 10/03/17 14:30 (NS Flush) 2 ml BID IV FLUSH 10/03/17 21:00 (Cardizem Inj) 20 mg UNSCH X1 PRN IV PUSH 10/03/17 15:00 10/04/17 14:59 10/03/17 16:32 Nitroglycerin/ Dextrose 250 ml @ 1.5 mls/hr TITRATE PRN IV 10/03/17 15:15 10/03/17 16:13 Heparin Sodium/ Dextrose 250 ml @ 9 mls/hr TITRATE PRN IV 10/03/17 15:15 Diltiazem HCl 125 mg/Sodium Chloride 125 ml @ 5 mls/hr TITRATE PRN IV 10/03/17 15:15 10/03/17 15:47 (Cardizem) 60 mg Q6HR PO 10/03/17 18:00 (Eliquis) 5 mg BID PO 10/03/17 21:00 Future Hold Piperacillin Sod/ Tazobactam Sod 4.5 gm/Sodium Chloride 100 ml @ 200 mls/hr Q8H IV 10/03/17 16:00 Allergies Allergies Coded Allergies No Known Allergies (Verified Allergy, Unknown, 09/15/17) Exam I&O / VS Vital Signs Date Time Temp Pulse Resp B/P (MAP) Pulse Ox O2 Delivery O2 Flow Rate FiO2 10/03/17 16:18 121 124/87 10/03/17 16:13 125 142/74 10/03/17 15:47 127 127/78 Respiratory: Lungs CTA, Non-labored respirations, BS equal Cardiology: Normal rate, Regular Rhythm Musculoskeletal: Tenderness, Swelling Exam Comments lethargic, arousable and follow commands Speech is mildly nonfluent. follow commands CN ---mild RUMN CN 7 palsey MOTOR 3/5 RUE and RLE Objective Radiology Results CT Brain--small amount of edema left MCA and right cerebellum with no hemorrhage. Micro and Labs Laboratory Tests Test 10/03/17 16:28 White Blood Count 7.7 Red Blood Count 5.08 Hemoglobin 12.0 Hematocrit 37.6 Mean Corpuscular Volume 74.0 Mean Corpuscular Hemoglobin 23.7 Mean Corpuscular Hemoglobin Concent 32.0 Red Cell Distribution Width 19.2 Platelet Count 260 Mean Platelet Volume 9.7 Prothrombin Time 12.8 Prothromb Time International Ratio 1.3 Activated Partial Thromboplast Time 24.0 Anoop Valencia MD PhD Oct 03, 2017 17:30
[2017-10-03] MEDS: NITROGLYCERIN 2% OINT 1 GM PACKET TOP SCH ×2 (17:36→21:45)
[2017-10-03] MEDS: DILTIAZEM HCL 60 MG TAB PO SCH (17:37)
[2017-10-03] MEDS: FERROUS SULFATE 325 MG (65 MG ELEMENTAL IRON) TAB PO SCH (17:44)
[2017-10-03] MEDS: PIPERACILLIN/TAZ 4.5 GM VIAL 4.5 GM in SODIUM CHLORIDE 0.9% INJ 100 ML IV SCH (17:50)
[2017-10-03] MEDS: METOPROLOL TARTRATE 5 MG/5 ML VIAL IV PUSH SCH ×3 (18:49→19:58)
[2017-10-03] MEDS: METOPROLOL TARTRATE 50 MG TAB PO SCH (19:24)
[2017-10-03] MEDS ORDERED: SODIUM CHLORIDE 0.9% FLUSH 10 ML FLUSH IV FLUSH SCH ×2 (21:00)
[2017-10-03] MEDS: guaiFENesin SOLUTION 200 MG/10 ML CUP PO SCH ×2 (21:00→21:44)
[2017-10-03] MEDS ORDERED: DOCUSATE SODIUM 50 MG/SENNA 8.6 MG TAB PO SCH (21:00)
[2017-10-03] MEDS: DOCUSATE SODIUM 50 MG/SENNA 8.6 MG TAB PO SCH ×2 (21:00→21:44)
[2017-10-03] MEDS ORDERED: APIXABAN 5 MG TABLET PO SCH ×2 (21:00)
[2017-10-03] MEDS: hydrALAZINE HCL 25 MG TAB PO SCH ×2 (21:44→22:00)
[2017-10-03] MEDS: EMTRICITABINE/TENOFOVIR 200 MG/300 MG TAB PO SCH (21:45)
[2017-10-03] MEDS: SODIUM CHLORIDE 0.9% FLUSH 10 ML FLUSH IV FLUSH SCH (21:46)
[2017-10-03 23:02] LABS: TROPONIN I 0.29 NG/ML (0.02-0.05)
[2017-10-04] VITALS (22 sets, daily range): BP systolic 120–149; BP diastolic 76–93; PULSE 82–128; RESP 19–20; TEMP 97.4–97.6; O2SAT 100
[2017-10-04 04:22] LABS: CHOLESTEROL 117 MG/DL (120-200); TRIGLYCERIDES 93 MG/DL (42-150)
[2017-10-04 04:24] LABS: CHOLESTEROL/ HDL RATIO 3.92 RATIO; HDL CHOLESTEROL 29.8 MG/DL (40.0-60.0); LDL CHOLESTEROL 69 MG/DL (0-99); TROPONIN I 0.28 NG/ML (0.02-0.05)
[2017-10-04] MEDS: NITROGLYCERIN 2% OINT 1 GM PACKET TOP SCH ×3 (04:58→17:09)
[2017-10-04] MEDS ORDERED: METOPROLOL TARTRATE 5 MG/5 ML VIAL IV PUSH SCH (05:45)
[2017-10-04] MEDS: METOPROLOL TARTRATE 50 MG TAB PO SCH ×3 (06:00→22:00)
[2017-10-04] MEDS: hydrALAZINE HCL 25 MG TAB PO SCH ×3 (06:00→22:00)
[2017-10-04] MEDS: DILTIAZEM HCL 60 MG TAB PO SCH ×4 (06:00→17:10)
[2017-10-04] MEDS: MORPHINE SULFATE 2 MG/ML INJ IV PUSH PRN ×2 (06:04→15:39)
[2017-10-04 07:00] LABS: BASOPHIL # 0.1 TH/MM3 (0-0.2); BASOPHIL % 0.7 % (0.0-2.0); EOSINOPHIL # 0.1 TH/MM3 (0-0.4); EOSINOPHIL % 0.7 % (0.0-4.0); HEMATOCRIT 35.4 % (39.0-51.0); HEMOGLOBIN 11.3 GM/DL (13.0-17.0); LYMPH % 23.9 % (9.0-44.0); LYMPHOCYTE # 1.8 TH/MM3 (1.0-4.8); MEAN CELL VOLUME 73.6 FL (80.0-100.0); MEAN CORPUSCULAR HEMOGLOBIN 23.6 PG (27.0-34.0); MEAN PLATELET VOLUME 9.7 FL (7.0-11.0); MONO % 9.5 % (0.0-8.0); MONOCYTE # 0.7 TH/MM3 (0-0.9); NEUT % 65.2 % (16.0-70.0); PLATELET COUNT 242 TH/MM3 (150-450); RED CELL DISTRIBUTION WIDTH 19.2 % (11.6-17.2); WHITE BLOOD COUNT 7.7 TH/MM3 (4.0-11.0)
[2017-10-04] MEDS ORDERED: ATORVASTATIN 40 MG TAB PO SCH (09:00)
[2017-10-04] MEDS ORDERED: TAMSULOSIN HCL 0.4 MG CAP PO SCH (09:00)
[2017-10-04] MEDS ORDERED: ASPIRIN 325 MG TAB PO SCH (09:00)
[2017-10-04] MEDS ORDERED: ASPIRIN EC 325 MG TABEC PO SCH (09:00)
[2017-10-04] MEDS ORDERED: HYDROCHLOROTHIAZIDE 25 MG TAB PO SCH (09:00)
[2017-10-04] MEDS: DOCUSATE SODIUM 50 MG/SENNA 8.6 MG TAB PO SCH ×2 (09:00→21:00)
[2017-10-04] MEDS ORDERED: MEGESTROL ACETATE SUSP 400 MG/10 ML CUP PO SCH (09:00)
[2017-10-04] MEDS ORDERED: NIFEdipine 60 MG SUSTAINED RELEASE TAB PO SCH (09:00)
[2017-10-04] MEDS ORDERED: NON-FORMULARY DRUG (Efavirenz-Emtricitabine-Tenofovir (Atripla) 1 TAB) PO SCH (09:00)
[2017-10-04] MEDS: guaiFENesin SOLUTION 200 MG/10 ML CUP PO SCH ×2 (09:00→21:00)
[2017-10-04] MEDS ORDERED: FLUoxetine HCL 10 MG CAP PO SCH (09:00)
[2017-10-04] MEDS ORDERED: PANTOPRAZOLE SOD 40 MG DELAYED RELEASE TAB PO SCH (09:00)
[2017-10-04] MEDS ORDERED: AMIODARONE INJ 150 MG in DEXTROSE 5% IN WATER 100ML INJ 97 ML IV ONE ×2 (09:32)
--- NOTE | 2017-10-04 09:36 | PD.CARD.PN ---
Subjective Subjective Remarks Refusing PO meds. I can't tell if having pain. Objective Medications Current Medications Medications (Trade) Dose Ordered Sig/Eyal Route Start Time Stop Time Status Last Admin (Lipitor) 40 mg DAILY PO 10/04/17 09:00 (Catapres) 0.1 mg Q6H PRN PO 10/03/17 14:15 (Sustiva) 600 mg HS PO 10/03/17 21:00 10/03/17 21:45 (Truvada 200-300 Mg) 1 tab HS PO 10/03/17 21:00 10/03/17 21:45 (Ferrous Sulfate) 325 mg BID@12,17 PO 10/03/17 17:00 10/03/17 17:44 (PROzac) 10 mg DAILY PO 10/04/17 09:00 (Robitussin Liq) 200 mg BID PO 10/03/17 21:00 (Apresoline) 25 mg Q8HR PO 10/03/17 22:00 (Hydrodiuril) 25 mg DAILY PO 10/04/17 09:00 (Lopressor) 50 mg Q8HR PO 10/03/17 18:45 10/03/17 19:24 (Protonix) 40 mg DAILY PO 10/04/17 09:00 (Flomax) 0.4 mg DAILY PO 10/04/17 09:00 (Megace Liq) 400 mg DAILY PO 10/04/17 09:00 (Morphine Inj) 4 mg Q3H PRN IV PUSH 10/03/17 14:30 10/04/17 06:04 (NS Flush) 2 ml BID IV FLUSH 10/03/17 21:00 10/03/17 21:46 (NS Flush) 2 ml UNSCH PRN IV FLUSH 10/03/17 14:30 (Aspirin) 325 mg NOW PO 10/03/17 14:30 10/04/17 14:29 10/03/17 17:37 (Nitroglycerin 2% Oint) 1 inch Q6H TOP 10/03/17 16:00 10/04/17 04:58 (Nitrostat Sl) 0.4 mg Q5M PRN SL 10/03/17 14:30 (Morphine Inj) 2 mg Q30M PRN IV PUSH 10/03/17 14:30 (Xanax) 0.25 mg Q8H PRN PO 10/03/17 14:30 (Tylenol) 650 mg Q4H PRN PO 10/03/17 14:30 (Zofran Inj) 4 mg Q6H PRN IVP 10/03/17 14:30 (Reglan Inj) 5 mg Q6H PRN IV PUSH 10/03/17 14:30 (Tylenol) 650 mg Q6H PRN PO 10/03/17 14:30 (Percocet 5-325 Mg) 1 tab Q6H PRN PO 10/03/17 14:30 (Percocet 10-325 Mg) 1 tab Q6H PRN PO 10/03/17 14:30 (Morphine Inj) 2 mg Q3H PRN IV PUSH 10/03/17 14:30 (Narcan Inj) 0.4 mg UNSCH PRN IV PUSH 10/03/17 14:30 (Amy-Colace) 1 tab BID PO 10/03/17 21:00 (Milk Of Magnesia Liq) 30 ml Q12H PRN PO 10/03/17 14:30 (Senokot) 17.2 mg Q12H PRN PO 10/03/17 14:30 (Dulcolax Supp) 10 mg DAILY PRN RECTAL 10/03/17 14:30 (Lactulose Liq) 30 ml DAILY PRN PO 10/03/17 14:30 (Cardizem Inj) 20 mg UNSCH X1 PRN IV PUSH 10/03/17 15:00 10/04/17 14:59 10/03/17 16:32 Nitroglycerin/ Dextrose 250 ml @ 1.5 mls/hr TITRATE PRN IV 10/03/17 15:15 10/03/17 16:13 Diltiazem HCl 125 mg/Sodium Chloride 125 ml @ 5 mls/hr TITRATE PRN IV 10/03/17 15:15 10/03/17 15:47 (Cardizem) 60 mg Q6HR PO 10/03/17 18:00 10/03/17 17:37 (Eliquis) 5 mg BID PO 10/03/17 21:00 Future Hold Piperacillin Sod/ Tazobactam Sod 4.5 gm/Sodium Chloride 100 ml @ 200 mls/hr Q8H IV 10/03/17 16:00 10/04/17 00:00 Vital Signs / I&O Vital Signs Date Time Temp Pulse Resp B/P (MAP) Pulse Ox O2 Delivery O2 Flow Rate FiO2 10/04/17 07:30 97.6 115 19 120/76 (91) 100 10/04/17 06:00 120 10/04/17 05:00 118 10/04/17 04:00 89 10/04/17 03:00 97.5 110 20 149/93 (111) 100 10/04/17 03:00 96 10/04/17 02:00 112 10/04/17 01:00 94 10/04/17 00:00 94 10/03/17 23:00 97.9 110 20 119/82 (94) 100 10/03/17 23:00 110 10/03/17 22:00 82 10/03/17 21:00 84 10/03/17 20:00 115 10/03/17 20:00 97.8 94 14 127/69 (88) 100 10/03/17 19:15 135 16 129/90 (103) 100 10/03/17 19:00 102 10/03/17 18:52 16 10/03/17 18:15 142 17 143/88 (106) 100 10/03/17 18:00 138 10/03/17 17:15 116 18 133/86 (102) 100 10/03/17 17:00 122 10/03/17 17:00 135 146/96 10/03/17 16:45 114 16 146/96 (113) 100 10/03/17 16:18 121 124/87 10/03/17 16:15 121 18 132/87 (102) 100 10/03/17 16:13 125 142/74 10/03/17 16:00 126 10/03/17 15:47 127 127/78 10/03/17 15:45 176 18 141/74 (96) 100 10/03/17 15:15 119 18 127/78 (94) 100 10/03/17 15:00 125 17 135/84 (101) 100 10/03/17 15:00 129 10/03/17 14:45 152 18 127/80 (96) 99 10/03/17 14:30 120 18 138/86 (103) 99 I/O 10/03/17 10/03/17 10/03/17 10/04/175/18 1/5/18 07:00 15:00 23:00 07:00 15:00 23:00 Intake Total 150 ml 120 ml Output Total 450 ml 250 ml Balance -300 ml -130 ml Intake Oral 50 ml 120 ml IV Total 100 ml Output Urine Total 450 ml 250 ml # Bowel Movements 1 Physical Exam Awake but lethargic Chest clear ant CV S1S2 irr irr tachy Ekg AF RVR interspersed with sinus rhythm No edema Laboratory Laboratory Tests Test 10/03/17 16:28 10/03/17 22:05 10/04/17 02:59 10/04/17 05:00 White Blood Count 7.7 TH/MM3 7.7 TH/MM3 Red Blood Count 5.08 MIL/MM3 4.80 MIL/MM3 Hemoglobin 12.0 GM/DL 11.3 GM/DL Hematocrit 37.6 % 35.4 % Mean Corpuscular Volume 74.0 FL 73.6 FL Mean Corpuscular Hemoglobin 23.7 PG 23.6 PG Mean Corpuscular Hemoglobin Concent 32.0 % 32.0 % Red Cell Distribution Width 19.2 % 19.2 % Platelet Count 260 TH/MM3 242 TH/MM3 Mean Platelet Volume 9.7 FL 9.7 FL Prothrombin Time 12.8 SEC Prothromb Time International Ratio 1.3 RATIO Activated Partial Thromboplast Time 24.0 SEC 24.3 SEC Total Creatine Kinase 198 U/L 167 U/L 146 U/L Creatine Kinase MB 3.0 NG/ML 2.7 NG/ML 2.3 NG/ML Troponin I 0.32 NG/ML 0.29 NG/ML 0.28 NG/ML Triglycerides Level 93 MG/DL Cholesterol Level 117 MG/DL LDL Cholesterol 69 MG/DL HDL Cholesterol 29.8 MG/DL Cholesterol/HDL Ratio 3.92 RATIO Neutrophils (%) (Auto) 65.2 % Lymphocytes (%) (Auto) 23.9 % Monocytes (%) (Auto) 9.5 % Eosinophils (%) (Auto) 0.7 % Basophils (%) (Auto) 0.7 % Neutrophils # (Auto) 5.0 TH/MM3 Lymphocytes # (Auto) 1.8 TH/MM3 Monocytes # (Auto) 0.7 TH/MM3 Eosinophils # (Auto) 0.1 TH/MM3 Basophils # (Auto) 0.1 TH/MM3 CBC Comment DIFF FINAL Differential Comment Assessment and Plan Problem List: (1) CVA (cerebral vascular accident) ICD Codes: I63.9 - Cerebral infarction, unspecified Status: Acute (2) Elevated troponin ICD Codes: R79.89 - Other specified abnormal findings of blood chemistry Status: Acute (3) Atrial fibrillation ICD Codes: I48.91 - Unspecified atrial fibrillation Status: Chronic Assessment and Plan add IV amiodarone to correct his afib. Unable to anticoagulate due to hematuria. Refusing all PO meds - recommend palliative care consult. Dr. Lisa rondon F/Frank Manjarrez MD Oct 04, 2017 09:36
[2017-10-04] MEDS ORDERED: AMIODARONE INJ 450 MG in SODIUM CHLOR 0.9% (EXCEL) INJ 250 ML IV PRN (09:42)
[2017-10-04] MEDS: SODIUM CHLORIDE 0.9% FLUSH 10 ML FLUSH IV FLUSH SCH ×2 (09:54→21:00)
[2017-10-04] MEDS: PIPERACILLIN/TAZ 4.5 GM VIAL 4.5 GM in SODIUM CHLORIDE 0.9% INJ 100 ML IV SCH ×4 (09:54→17:09)
--- NOTE | 2017-10-04 10:15 | HHI.PR ---
Subjective Remarks Patient is a 72-year-old right-handed dominant male who was initially up in rehabilitation At [facility]. While at [facility]. Patient was noted to have A. fib with RVR noted to have positive troponins was therefore readmitted to the inpatient service under my service will consult cardiology will keep him on a Cardizem drip will give him medications for the chest pain. Ask cardiology to come and see the patient as soon as possible. And continue monitoring heparin drip as well as a Cardizem drip at this time Patient has a history of multiple strokes. Also noted to have on echo and EF of 50% with a patent foramen ovale Has history of ventricular tachycardia and paroxysmal atrial fibrillation Also had some aspiration pneumonia Is having issues with hematuria but will have to be on full anticoagulation due to the positive troponins and chest pain and non-STEMI Patient was therefore transferred back to inpatient for evaluation and treatment 1-5 CURRENTLY REFUSING ALL INTAKE OF HIS ORAL MEDICATIONS WILL CONSULT PALLIATIVE CARE DW RN AND PT AND CARDIOLOGY STARTED ON AMIODARONE IV Objective Vitals Vital Signs Date Time Temp Pulse Resp B/P (MAP) Pulse Ox O2 Delivery O2 Flow Rate FiO2 10/04/17 09:45 95 115/74 10/04/17 07:30 97.6 115 19 120/76 (91) 100 10/04/17 06:00 120 10/04/17 05:00 118 10/04/17 04:00 89 10/04/17 03:00 97.5 110 20 149/93 (111) 100 10/04/17 03:00 96 10/04/17 02:00 112 10/04/17 01:00 94 10/04/17 00:00 94 10/03/17 23:00 97.9 110 20 119/82 (94) 100 10/03/17 23:00 110 10/03/17 22:00 82 10/03/17 21:00 84 10/03/17 20:00 115 10/03/17 20:00 97.8 94 14 127/69 (88) 100 10/03/17 19:15 135 16 129/90 (103) 100 10/03/17 19:00 102 10/03/17 18:52 16 10/03/17 18:15 142 17 143/88 (106) 100 10/03/17 18:00 138 1/4/18 17:15 116 18 133/86 (102) 100 10/03/17 17:00 122 10/03/17 17:00 135 146/96 10/03/17 16:45 114 16 146/96 (113) 100 10/03/17 16:18 121 124/87 10/03/17 16:15 121 18 132/87 (102) 100 10/03/17 16:13 125 142/74 10/03/17 16:00 126 10/03/17 15:47 127 127/78 10/03/17 15:45 176 18 141/74 (96) 100 10/03/17 15:15 119 18 127/78 (94) 100 10/03/17 15:00 125 17 135/84 (101) 100 10/03/17 15:00 129 10/03/17 14:45 152 18 127/80 (96) 99 10/03/17 14:30 120 18 138/86 (103) 99 I/O 10/03/17 10/03/17 10/03/17 10/04/17 10/04/17 10/04/17 06:59 14:59 22:59 06:59 14:59 22:59 Intake Total 150 ml 120 ml 26 ml Output Total 450 ml 250 ml Balance -300 ml -130 ml 26 ml Intake Oral 50 ml 120 ml IV Total 100 ml 26 ml Output Urine Total 450 ml 250 ml # Bowel Movements 1 Result Diagram: 10/04/17 0500 Other Results Laboratory Tests Test 10/03/17 16:28 10/03/17 22:05 10/04/17 02:59 10/04/17 05:00 White Blood Count 7.7 TH/MM3 7.7 TH/MM3 Red Blood Count 5.08 MIL/MM3 4.80 MIL/MM3 Hemoglobin 12.0 GM/DL 11.3 GM/DL Hematocrit 37.6 % 35.4 % Mean Corpuscular Volume 74.0 FL 73.6 FL Mean Corpuscular Hemoglobin 23.7 PG 23.6 PG Mean Corpuscular Hemoglobin Concent 32.0 % 32.0 % Red Cell Distribution Width 19.2 % 19.2 % Platelet Count 260 TH/MM3 242 TH/MM3 Mean Platelet Volume 9.7 FL 9.7 FL Prothrombin Time 12.8 SEC Prothromb Time International Ratio 1.3 RATIO Activated Partial Thromboplast Time 24.0 SEC 24.3 SEC Total Creatine Kinase 198 U/L 167 U/L 146 U/L Creatine Kinase MB 3.0 NG/ML 2.7 NG/ML 2.3 NG/ML Troponin I 0.32 NG/ML 0.29 NG/ML 0.28 NG/ML Triglycerides Level 93 MG/DL Cholesterol Level 117 MG/DL LDL Cholesterol 69 MG/DL HDL Cholesterol 29.8 MG/DL Cholesterol/HDL Ratio 3.92 RATIO Neutrophils (%) (Auto) 65.2 % Lymphocytes (%) (Auto) 23.9 % Monocytes (%) (Auto) 9.5 % Eosinophils (%) (Auto) 0.7 % Basophils (%) (Auto) 0.7 % Neutrophils # (Auto) 5.0 TH/MM3 Lymphocytes # (Auto) 1.8 TH/MM3 Monocytes # (Auto) 0.7 TH/MM3 Eosinophils # (Auto) 0.1 TH/MM3 Basophils # (Auto) 0.1 TH/MM3 CBC Comment DIFF FINAL Differential Comment Objective Remarks GENERAL: SKIN: Warm and dry. HEAD: Atraumatic. Normocephalic. EYES: Pupils equal and round. No scleral icterus. No injection or drainage. ENT: No nasal bleeding or discharge. Mucous membranes pink and moist. NECK: Trachea midline. No JVD. CARDIOVASCULAR: Regular rate and rhythm. RESPIRATORY: No accessory muscle use. Clear to auscultation. Breath sounds equal bilaterally. GASTROINTESTINAL: Abdomen soft, non-tender, nondistended. Hepatic and splenic margins not palpable. MUSCULOSKELETAL: Extremities without clubbing, cyanosis, or edema. No obvious deformities. NEUROLOGICAL: Awake and alert. No obvious cranial nerve deficits. Motor grossly within normal limits. Five out of 5 muscle strength in the arms and legs. Normal speech. PSYCHIATRIC: Appropriate mood and affect; insight and judgment normal. Medications and IVs Current Medications Clonidine (Catapres) 0.1 mg Q4H PRN PO SBP>160, DBP>90; Start 10/03/17 at 13:00 ; Stop 10/03/17 at 19:54; Status DC Aspirin (Aspirin) 325 mg DAILY PO ; Start 10/04/17 at 09:00; Stop 10/04/17 at 09: 00; Status DC Atorvastatin Calcium (Lipitor) 40 mg DAILY PO ; Start 10/04/17 at 09:00 Clonidine (Catapres) 0.1 mg Q6H PRN PO SBP>160, DBP>90; Start 10/03/17 at 14:15 Efavirenz (Sustiva) 600 mg HS PO Last administered on 10/03/17at 21:45; Start 10/03/17 at 21:00 Emtricitabine/ Tenofovir (Truvada 200-300 Mg) 1 tab HS PO Last administered on 10/03/17at 21:45; Start 10/03/17 at 21:00 Ferrous Sulfate (Ferrous Sulfate) 325 mg BID@12,17 PO Last administered on at 17:44; Start 10/03/17 at 17:00 Fluoxetine HCl (PROzac) 10 mg DAILY PO ; Start 10/04/17 at 09:00 Guaifenesin (Robitussin Liq) 200 mg BID PO ; Start 10/03/17 at 21:00 Hydralazine HCl (Apresoline) 25 mg Q8HR PO ; Start 10/03/17 at 22:00 Hydrochlorothiazide (Hydrodiuril) 25 mg DAILY PO ; Start 10/04/17 at 09:00 Metoprolol Tartrate (Lopressor) 50 mg Q8HR PO Last administered on 10/03/17at 19: 24; Start 10/03/17 at 18:45 Nifedipine (Procardia Xl) 60 mg DAILY PO ; Start 10/04/17 at 09:00; Stop 10/04/17 at 09:00; Status DC Pantoprazole Sodium (Protonix) 40 mg DAILY PO ; Start 10/04/17 at 09:00 Piperacillin Sod/ Tazobactam Sod (Zosyn 4.5 Gm Vial) 4.5 gm Q8H IV ; Start at 15:00; Stop 10/03/17 at 15:12; Status DC Senna/Docusate Sodium (Amy-Colace) 1 tab BID PO ; Start 10/03/17 at 21:00; Stop 10/03/17 at 21:00; Status DC Tamsulosin HCl (Flomax) 0.4 mg DAILY PO ; Start 10/04/17 at 09:00 Non-Formulary Medication 1 tab DAILY PO ; Start 10/04/17 at 09:00; Status UNV Megestrol Acetate (Megace Liq) 400 mg DAILY PO ; Start 10/04/17 at 09:00 Morphine Sulfate (Morphine Inj) 4 mg ONCE ONCE IV PUSH Last administered on 10/03/17at 18:27; Start 10/03/17 at 14:30; Stop 10/03/17 at 14:44; Status DC Morphine Sulfate (Morphine Inj) 4 mg Q3H PRN IV PUSH pain 6-10 Last administered on 10/04/17at 06:04; Start 10/03/17 at 14:30 Sodium Chloride (NS Flush) 2 ml BID IV FLUSH Last administered on 10/04/17at 09: 54; Start 10/03/17 at 21:00 Sodium Chloride (NS Flush) 2 ml UNSCH PRN IV FLUSH FLUSH AFTER USING IV ACCESS ; Start 10/03/17 at 14:30 Nitroglycerin/ Dextrose 250 ml @ 1.5 mls/hr TITRATE PRN IV Keep SBP > 90 mmHg ; Start 10/03/17 at 14:30; Stop 10/03/17 at 14:59; Status DC Aspirin (Aspirin) 325 mg NOW PO Last administered on 10/03/17at 17:37; Start 10/03 at 14:30; Stop 10/04/17 at 14:29 Aspirin (Ecotrin Ec) 325 mg DAILY PO ; Start 10/04/17 at 09:00; Status UNV Nitroglycerin (Nitroglycerin 2% Oint) 1 inch Q6H TOP Last administered on at 09:55; Start 10/03/17 at 16:00 Nitroglycerin (Nitrostat Sl) 0.4 mg Q5M PRN SL CHEST PAIN; Start 10/03/17 at 14: 30 Morphine Sulfate (Morphine Inj) 2 mg Q30M PRN IV PUSH CHEST PAIN; Start at 14:30 Alprazolam (Xanax) 0.25 mg Q8H PRN PO ANXIETY; Start 10/03/17 at 14:30 Heparin Sodium/ Dextrose 250 ml @ 0 mls/hr TITRATE PRN IV Coagulation Management; Start 10/03/17 at 14:30; Stop 10/03/17 at 14:59; Status DC Sodium Chloride (NS Flush) 2 ml UNSCH PRN IV FLUSH FLUSH AFTER USING IV ACCESS ; Start 10/03/17 at 14:30; Stop 10/03/17 at 19:03; Status DC Sodium Chloride (NS Flush) 2 ml BID IV FLUSH ; Start 10/03/17 at 21:00; Stop 10/03 at 21:00; Status DC Acetaminophen (Tylenol) 650 mg Q4H PRN PO TEMP > 100.4; Start 10/03/17 at 14:30 Ondansetron HCl (Zofran Inj) 4 mg Q6H PRN IVP NAUSEA OR VOMITING; Start at 14:30 Metoclopramide HCl (Reglan Inj) 5 mg Q6H PRN IV PUSH NAUSEA OR VOMITING; Start 10/03/17 at 14:30 Acetaminophen (Tylenol) 650 mg Q6H PRN PO PAIN SCALE 1 TO 2; Start 10/03/17 at 14:30 Oxycodone/ Acetaminophen (Percocet 5-325 Mg) 1 tab Q6H PRN PO PAIN SCALE 3 TO 5; Start 10/03/17 at 14:30 Oxycodone/ Acetaminophen (Percocet 10-325 Mg) 1 tab Q6H PRN PO PAIN SCALE 6 TO 10; Start 10/03/17 at 14:30 Morphine Sulfate (Morphine Inj) 2 mg Q3H PRN IV PUSH Pain 3-5; if unable to take PO; Start 10/03/17 at 14:30 Naloxone HCl (Narcan Inj) 0.4 mg UNSCH PRN IV PUSH SEE LABEL COMMENTS; Start at 14:30 Senna/Docusate Sodium (Amy-Colace) 1 tab BID PO ; Start 10/03/17 at 21:00 Magnesium Hydroxide (Milk Of Magnesia Liq) 30 ml Q12H PRN PO Mild constipation ; Start 10/03/17 at 14:30 Sennosides (Senokot) 17.2 mg Q12H PRN PO Moderate constipation; Start 10/03/17 at 14:30 Bisacodyl (Dulcolax Supp) 10 mg DAILY PRN RECTAL SEVERE CONSITIPATION; Start at 14:30 Lactulose (Lactulose Liq) 30 ml DAILY PRN PO SEVERE CONSITIPATION; Start at 14:30 Sodium Chloride (NS Flush) 2 ml UNSCH PRN IV FLUSH FLUSH AFTER USING IV ACCESS ; Start 10/03/17 at 14:30; Stop 10/03/17 at 18:53; Status DC Sodium Chloride (NS Flush) 2 ml BID IV FLUSH ; Start 10/03/17 at 21:00; Stop 10/03 at 21:00; Status DC Diltiazem HCl (Cardizem Inj) 15 mg ONCE ONCE IV PUSH Last administered on at 14:56; Start 10/03/17 at 14:30; Stop 10/03/17 at 14:49; Status DC Diltiazem HCl 125 mg/Sodium Chloride 125 ml @ 5 mls/hr TITRATE PRN IV Tachycardia; Start 10/03/17 at 14:30; Stop 10/03/17 at 14:59; Status DC Diltiazem HCl (Cardizem Inj) 20 mg UNSCH X1 PRN IV PUSH SEE LABEL COMMENTS Last administered on 10/03/17at 16:32; Start 10/03/17 at 15:00; Stop 10/04/17 at 14: 59 Nitroglycerin/ Dextrose 250 ml @ 1.5 mls/hr TITRATE PRN IV Keep SBP > 90 mmHg Last administered on 10/03/17at 16:13; Start 10/03/17 at 15:15; Stop 10/04/17 at 09: 34; Status DC Heparin Sodium/ Dextrose 250 ml @ 9 mls/hr TITRATE PRN IV Coagulation Management; Start 10/03/17 at 15:15; Stop 10/03/17 at 19:52; Status DC Diltiazem HCl 125 mg/Sodium Chloride 125 ml @ 5 mls/hr TITRATE PRN IV Tachycardia Last administered on 10/03/17at 15:47; Start 10/03/17 at 15:15 Apixaban (Eliquis) 5 mg BID PO ; Start 10/03/17 at 21:00; Stop 10/03/17 at 21:00; Status DC Diltiazem HCl (Cardizem) 60 mg Q6HR PO Last administered on 10/03/17at 17:37; Start 10/03/17 at 18:00 Apixaban (Eliquis) 5 mg BID PO ; Start 10/03/17 at 21:00; Status Future Hold Piperacillin Sod/ Tazobactam Sod 4.5 gm/Sodium Chloride 100 ml @ 200 mls/hr Q8H IV Last administered on 10/04/17at 09:54; Start 10/03/17 at 16:00 Metoprolol Tartrate (Lopressor Inj) 5 mg Q15M IV PUSH Last administered on at 19:10; Start 10/03/17 at 18:45; Stop 10/03/17 at 19:16; Status DC Metoprolol Tartrate (Lopressor Inj) 5 mg ONCE IV PUSH Last administered on at 06:00; Start 10/04/17 at 05:45; Stop 10/04/17 at 08:00; Status DC Amiodarone HCl 450 mg/Sodium Chloride 259 ml @ 34.53 mls/ hr Q7H31M PRN IV Per Protocol; Start 10/04/17 at 09:42 Amiodarone HCl 150 mg/Dextrose 100 ml @ 100 mls/hr Q1H ONCE IV ; Start 10/04/17 at 09:32; Stop 10/04/17 at 10:31 A/P Problem List: (1) Hemiplegia affecting dominant side ICD Code: G81.90 - Hemiplegia, unspecified affecting unspecified side Status: Acute (2) Impaired mobility and activities of daily living ICD Code: Z74.09 - Other reduced mobility Status: Acute (3) Aphasia ICD Code: R47.01 - Aphasia Status: Acute (4) Hypertension ICD Code: I10 - Essential (primary) hypertension Status: Chronic (5) Hyperlipidemia ICD Code: E78.5 - Hyperlipidemia, unspecified Status: Chronic (6) Atrial fibrillation ICD Code: I48.91 - Unspecified atrial fibrillation Status: Chronic (7) Anemia ICD Code: D64.9 - Anemia, unspecified Status: Chronic (8) CVA (cerebral vascular accident) ICD Code: I63.9 - Cerebral infarction, unspecified Status: Acute (9) Aspiration into airway ICD Code: T17.908A - Unspecified foreign body in respiratory tract, part unspecified causing other injury, initial encounter (10) HIV (human immunodeficiency virus infection) ICD Code: Z21 - Asymptomatic human immunodeficiency virus [HIV] infection status Status: Chronic (11) Elevated troponin ICD Code: R79.89 - Other specified abnormal findings of blood chemistry Status: Acute (12) CVA (cerebral vascular accident) ICD Code: I63.9 - Cerebral infarction, unspecified Status: Acute (13) Hematuria ICD Code: R31.9 - Hematuria, unspecified Status: Acute (14) NSTEMI (non-ST elevated myocardial infarction) ICD Code: I21.4 - Non-ST elevation (NSTEMI) myocardial infarction Status: Acute (15) irond def anemia Assessment and Plan Assessment and Plan Chest pain with positive troponins and acute chest pain with EKG changes Started on heparin drip Morphine Beta blockers Cardizem ADJUSTED STARTED ON AMIODARONE TODAY Consults cardiology A. fib with RVR Trend troponins Consult cardiology Pain control with morphine MEDS PER CARDIOLOGY REFUSING PO MEDS Recent CVA with right-sided weakness and severe aphasia with some possible dysphagia Impaired mobility Physical therapy and occupational therapy once stable Hemiplegia affecting the right side Physical therapy and occupational therapy as able Aphasia Speech therapy to continue to aggressively work with Anemia monitor labs has iron deficiency anemia Atrial fibrillation Positive troponins Started on heparin Cardiology input Hematuria urology input Continue Roa Flush Roa as needed History of aspiration continue on Zosyn Hyperlipidemia continue on statin Hypertension continue home medications HIV continue on his TRUVADA AND EFAVVIRENZ CONSULT PALLIATIVE CARE FOR DECISIONS ETC Code Status FULL CODE Discharge Planning PALLIATIVE CARE INPUT Rob Chase DO Oct 04, 2017 10:15
[2017-10-04] MEDS: DILTIAZEM INJ 125 MG in SODIUM CHLORIDE 0.9% INJ 100 ML IV PRN (11:06)
[2017-10-04] MEDS: FERROUS SULFATE 325 MG (65 MG ELEMENTAL IRON) TAB PO SCH ×2 (12:00→17:00)
--- NOTE | 2017-10-04 16:54 | PD.CONS ---
Consult Service Palliative Care Consult Requested By Dr. Chase Primary Care Physician Unknown Reason for Consultation a. To assist with evaluation and management of symptoms including: Dyspnea, pain b. To assist medical decision maker(s) with: better understanding of current medical conditions; weighing benefits/burdens of medical treatment options; making medical treatment decisions. HPI History of Present Illness This is a 72-year-old male who was admitted to [facility] with new onset weakness of his right arm and right leg. The patient's daughter accompanied him to the hospital and provided the history. Reportedly the patient was home with his girlfriend when he began having speech difficulty around 10 AM and having more difficulty walking. He had a previous history of a stroke in 2016, a presumed subacute brainstem infarct per brain MRI. On this admission, head CT showed an area of recent infarction involving the left occipital and posterior temporal lobes and again noted the older infarction involving the anterior left lateral midbrain. He does have a history of HIV and the daughter reports that he had recently not been taking his medications. After stabilization he was transferred to [facility] on 09/23 to undergo inpatient rehabilitation. While in [place] [facility] he developed a irregular tachycardia and troponin was drawn showing an elevation in his lab levels. Review of his past history shows elevated troponin since May 2016. He denies chest pain however remains in an irregular tachycardic rhythm. He is currently receiving diltiazem and amiodarone intravenously. Hospital course: * Laboratory: WBC 7.7, Hgb 11.3, HCT 35.4, platelets 242, troponin 0.34, 0.32, 0.29, 0.28, sodium 142, potassium 3.6, BUN 33, creatinine 1.67, albumin 2.8. * Radiology: Abdomen/pelvis CT shows huge mass versus huge blood clot within the bladder, mild right lung base atelectasis and/or infiltrate is seen. Consultants: * Cardiology: Recommending medical management. Patient has a history of paroxysmal atrial fibrillation and a patent foramen ovale per echocardiogram. While anticoagulation would be the optimal treatment, we are unable to anticoagulate due to his severe hematuria. At this time patient is refusing all oral medications. . Function/Cognitive Trajectory He previously lived at home independently with his girlfriend. His previous stroke in 2016 left him without residual deficits. This stroke has been far more devastating to him and he has now developed aphasia, right hemiparesis and left weakness. He is having difficulty swallowing his pills and is now refusing them. While he was still at home he had stopped taking his HIV antivirals per his sister, Kristen. He was unable to adequately participate at [facility] to have regained much function. It is likely that he will continue to decline given his significant post CVA deficits. . Review of Systems ROS Limitations: Clinical Condition, Speech Impaired Past Family Social History Coded Allergies: No Known Allergies (Verified Allergy, Unknown, 09/15/17) Past Medical History Multiple CVAs Patent Foramen ovale HIV positive Atrial fibrillation Hypertension Hematuria Poor dentition Hyperlipidemia Recent aspiration pneumonia Iron deficiency anemia BPH . Past Surgical History Lumbar fusion . Reported Medications Reported Meds & Active Scripts Active Zosyn Inj (Piperacillin Sod/Tazobactam Sod) 4.5 Gram Inj 4.5 Gm IV Q8H 3 Days [Megestrol Liq] 400 MG/10 ML Susp 400 Mg PO DAILY 30 Days Dexamethasone 4 Mg Tab 4 Mg PO Q8HR 30 Days Pantoprazole (Pantoprazole Sodium) 40 Mg Tab 40 Mg PO DAILY 30 Days Gnp Senna Plus 8.6-50 mg (Sennosides-Docusate Sodium) 8.6 Mg-50 Mg Tab 1 Tab PO BID 30 Days Cough Syrup (Guaifenesin) 100 Mg/5 Ml Syrp 200 Mg PO BID 30 Days Hydrochlorothiazide 25 Mg Tab 25 Mg PO DAILY 30 Days Fluoxetine (Pmdd) 10 Mg Cap 10 Mg PO DAILY@0800 30 Days Nifedipine ER 24 HR (Nifedipine) 60 Mg Tab 60 Mg PO DAILY 30 Days Lopressor (Metoprolol Tartrate) 50 Mg Tab 50 Mg PO Q8HR 30 Days Hydralazine HCl 25 Mg Tablet 25 Mg PO Q8HR 30 Days Catapres (Clonidine) 0.1 Mg Tab 0.1 Mg PO Q6H PRN 30 Days Atorvastatin (Atorvastatin Calcium) 40 Mg Tab 40 Mg PO DAILY 30 Days Ferosul (Ferrous Sulfate) 325 Mg (65 Mg Iron) Tablet 325 Mg PO BID@17 30 Days Flomax (Tamsulosin HCl) 0.4 Mg Cap 0.4 Mg PO DAILY 30 Days Truvada (Emtricitabine-Tenofovir Disoproxil Fumarate) 200-300 Mg Tab 1 Tab PO HS 30 Days Sustiva (Efavirenz) 200 Mg Cap 600 Mg PO HS 30 Days Hydralazine HCl 25 Mg Tablet 25 Mg PO Q8HR 30 Days Lopressor (Metoprolol Tartrate) 50 Mg Tab 50 Mg PO Q8HR 30 Days Catapres (Clonidine) 0.1 Mg Tab 0.1 Mg PO Q6H PRN 10 Days [Heparin Inj] 17847 UNITS/ML Inj 5,000 Units SQ Q12H 5 Days Dexamethasone 4 Mg Tab 4 Mg PO Q8HR 7 Days Hydrochlorothiazide 25 Mg Tab 25 Mg PO DAILY 30 Days Nifedipine ER 24 HR (Nifedipine) 60 Mg Tab 60 Mg PO DAILY 30 Days Ferosul (Ferrous Sulfate) 325 Mg (65 Mg Iron) Tablet 325 Mg PO BID@,17 Amoxicillin-Clavulanate 875-125 mg Tab 875 Mg PO Q12HR 3 Days not for use in CrCl <30 mL/minute Reported Hydrochlorothiazide 12.5 Mg Cap 12.5 Mg PO DAILY Atorvastatin (Atorvastatin Calcium) 40 Mg Tab 40 Mg PO DAILY Tamsulosin (Tamsulosin HCl) 0.4 Mg Cap 0.4 Mg PO DAILY Aspirin 325 Mg Tab 325 Mg PO DAILY Atripla (Gndmhjcnq-Jlakqfhnwewsc-Forztcoen) 600-200-300 Mg Tab 1 Tab PO DAILY Take on an empty stomach. . Current Medications Medications (Trade) Dose Ordered Sig/Eyal Route Start Time Stop Time Status Last Admin (Lipitor) 40 mg DAILY PO 10/04/17 09:00 (Catapres) 0.1 mg Q6H PRN PO 10/03/17 14:15 (Sustiva) 600 mg HS PO 10/03/17 21:00 10/03/17 21:45 (Truvada 200-300 Mg) 1 tab HS PO 10/03/17 21:00 10/03/17 21:45 (Ferrous Sulfate) 325 mg BID@12,17 PO 10/03/17 17:00 10/03/17 17:44 (PROzac) 10 mg DAILY PO 10/04/17 09:00 (Robitussin Liq) 200 mg BID PO 10/03/17 21:00 (Apresoline) 25 mg Q8HR PO 10/03/17 22:00 (Hydrodiuril) 25 mg DAILY PO 10/04/17 09:00 (Lopressor) 50 mg Q8HR PO 10/03/17 18:45 10/03/17 19:24 (Protonix) 40 mg DAILY PO 10/04/17 09:00 (Flomax) 0.4 mg DAILY PO 10/04/17 09:00 (Megace Liq) 400 mg DAILY PO 10/04/17 09:00 (Morphine Inj) 4 mg Q3H PRN IV PUSH 10/03/17 14:30 10/04/17 06:04 (NS Flush) 2 ml BID IV FLUSH 10/03/17 21:00 10/04/17 09:54 (NS Flush) 2 ml UNSCH PRN IV FLUSH 10/03/17 14:30 (Nitroglycerin 2% Oint) 1 inch Q6H TOP 10/03/17 16:00 10/04/17 09:55 (Nitrostat Sl) 0.4 mg Q5M PRN SL 10/03/17 14:30 (Morphine Inj) 2 mg Q30M PRN IV PUSH 10/03/17 14:30 (Xanax) 0.25 mg Q8H PRN PO 10/03/17 14:30 (Tylenol) 650 mg Q4H PRN PO 10/03/17 14:30 (Zofran Inj) 4 mg Q6H PRN IVP 10/03/17 14:30 (Reglan Inj) 5 mg Q6H PRN IV PUSH 10/03/17 14:30 (Tylenol) 650 mg Q6H PRN PO 10/03/17 14:30 (Percocet 5-325 Mg) 1 tab Q6H PRN PO 10/03/17 14:30 (Percocet 10-325 Mg) 1 tab Q6H PRN PO 10/03/17 14:30 (Morphine Inj) 2 mg Q3H PRN IV PUSH 10/03/17 14:30 (Narcan Inj) 0.4 mg UNSCH PRN IV PUSH 10/03/17 14:30 (Amy-Colace) 1 tab BID PO 10/03/17 21:00 (Milk Of Magnesia Liq) 30 ml Q12H PRN PO 10/03/17 14:30 (Senokot) 17.2 mg Q12H PRN PO 10/03/17 14:30 (Dulcolax Supp) 10 mg DAILY PRN RECTAL 10/03/17 14:30 (Lactulose Liq) 30 ml DAILY PRN PO 10/03/17 14:30 Diltiazem HCl 125 mg/Sodium Chloride 125 ml @ 5 mls/hr TITRATE PRN IV 10/03/17 15:15 10/04/17 11:06 (Cardizem) 60 mg Q6HR PO 10/03/17 18:00 10/03/17 17:37 (Eliquis) 5 mg BID PO 10/03/17 21:00 Future Hold Piperacillin Sod/ Tazobactam Sod 4.5 gm/Sodium Chloride 100 ml @ 200 mls/hr Q8H IV 10/03/17 16:00 10/04/17 09:54 Amiodarone HCl 450 mg/Sodium Chloride 259 ml @ 34.53 mls/ hr Q7H31M PRN IV 10/04/17 09:42 10/04/17 12:52 . Family History Both parents are per my discussion with patient's sister. Substance Use Tobacco: Denies any history of tobacco use. Alcohol: Denies any history of alcohol use. Prescription med abuse: Denies any prescription medication abuse. Illicits: Denies any illicit drug use. . Psychosocial History Born and brought up in [place], prior to admission lived with his girlfriend. He has a brother and sister who live locally and assist with his decision making. Spiritual/Cultural Factors Utility Worker Production available. . Living Will: Never completed Health Care Surrogate: Copy in medical record Durable Power of Hand Pattern Marker: Never completed Health Care Surrogate(s): Sister: Kristen Huynh is the primary health care surrogate. Tj Huynh , the patient's brother, is the alternate healthcare surrogate. . Physical Exam Vital Signs Date Time Temp Pulse Resp B/P (MAP) Pulse Ox O2 Delivery O2 Flow Rate FiO2 10/04/17 14:18 96 125/75 10/04/17 14:00 96 10/04/17 13:00 120 10/04/17 12:52 100 101/63 10/04/17 12:48 100 109/62 10/04/17 12:00 114 10/04/17 11:25 95 131/88 10/04/17 11:11 97.4 95 20 131/88 (102) 100 10/04/17 11:06 95 131/88 10/04/17 11:00 116 10/04/17 10:00 96 10/04/17 09:45 95 115/74 10/04/17 09:00 110 10/04/17 08:00 124 10/04/17 07:30 97.6 115 19 120/76 (91) 100 10/04/17 07:00 82 10/04/17 06:00 120 10/04/17 05:00 118 10/04/17 04:00 89 10/04/17 03:00 97.5 110 20 149/93 (111) 100 10/04/17 03:00 96 10/04/17 02:00 112 10/04/17 01:00 94 10/04/17 00:00 94 10/03/17 23:00 97.9 110 20 119/82 (94) 100 10/03/17 23:00 110 10/03/17 22:00 82 10/03/17 21:00 84 10/03/17 20:00 115 10/03/17 20:00 97.8 94 14 127/69 (88) 100 10/03/17 19:15 135 16 129/90 (103) 100 10/03/17 19:00 102 10/03/17 18:52 16 10/03/17 18:15 142 17 143/88 (106) 100 10/03/17 18:00 138 10/03/17 17:15 116 18 133/86 (102) 100 10/03/17 17:00 122 10/03/17 17:00 135 146/96 10/03/17 16:45 114 16 146/96 (113) 100 10/03/17 16:18 121 124/87 10/03/17 16:15 121 18 132/87 (102) 100 10/03/17 16:13 125 142/74 10/03/17 16:00 126 10/03/17 15:47 127 127/78 10/03/17 15:45 176 18 141/74 (96) 100 10/03/17 15:15 119 18 127/78 (94) 100 10/04/17 10/05/17 19:00 07:00 Intake Total 249 ml Balance 249 ml IV Total 249 ml Exam CONSTITUTIONAL/GENERAL: This is an adequately nourished patient, in no apparent distress. TUBES/LINES/DRAINS: PIV SKIN: No jaundice, rashes, or lesions. No wounds seen anteriorly. Skin temperature appropriate. Not diaphoretic. HEAD: Atraumatic. Normocephalic. EYES: Pupils equal and round and reactive. Extraocular motions intact. No scleral icterus. No injection or drainage. Fundi not examined. ENT: Hearing grossly normal. Nose without bleeding or purulent drainage. NECK: Trachea midline. Supple, nontender. No palpable thyroid enlargement or nodularity. CARDIOVASCULAR: Irregular rhythm, tachycardic rate, no rub murmur or gallop. RESPIRATORY/CHEST: Symmetric, unlabored respirations. Clear to auscultation. Breath sounds equal bilaterally. No wheezes, rales, or rhonchi. GASTROINTESTINAL: Abdomen soft, non-tender, nondistended. No hepato-splenomegaly , or palpable masses. No guarding. Bowel sounds present. GENITOURINARY: Without palpable bladder distension. Roa catheter in place draining dark red urine to bedside drainage. MUSCULOSKELETAL: Right arm in splint, flaccid. Right lower extremity weakness. Left upper and lower extremity with generalized weakness. LYMPHATICS: No palpable cervical or supraclavicular adenopathy. NEUROLOGICAL: Awake and alert. Unable to move right side, left side weak. PSYCHIATRIC: Will occasionally answer direct questions but frequently refusing to speak or respond. . Diagnostic Tests Laboratory Laboratory Tests Test 10/03/17 16:28 10/03/17 22:05 10/04/17 02:59 10/04/17 05:00 White Blood Count 7.7 TH/MM3 (4.0-11.0) 7.7 TH/MM3 (4.0-11.0) Red Blood Count 5.08 MIL/MM3 (4.50-5.90) 4.80 MIL/MM3 (4.50-5.90) Hemoglobin 12.0 GM/DL (13.0-17.0) 11.3 GM/DL (13.0-17.0) Hematocrit 37.6 % (39.0-51.0) 35.4 % (39.0-51.0) Mean Corpuscular Volume 74.0 FL (80.0-100.0) 73.6 FL (80.0-100.0) Mean Corpuscular Hemoglobin 23.7 PG (27.0-34.0) 23.6 PG (27.0-34.0) Mean Corpuscular Hemoglobin Concent 32.0 % (32.0-36.0) 32.0 % (32.0-36.0) Red Cell Distribution Width 19.2 % (11.6-17.2) 19.2 % (11.6-17.2) Platelet Count 260 TH/MM3 (150-450) 242 TH/MM3 (150-450) Mean Platelet Volume 9.7 FL (7.0-11.0) 9.7 FL (7.0-11.0) Prothrombin Time 12.8 SEC (9.8-11.6) Prothromb Time International Ratio 1.3 RATIO Activated Partial Thromboplast Time 24.0 SEC (24.3-30.1) 24.3 SEC (24.3-30.1) Total Creatine Kinase 198 U/L (39-308) 167 U/L (39-308) 146 U/L (39-308) Creatine Kinase MB 3.0 NG/ML (0.5-3.6) 2.7 NG/ML (0.5-3.6) 2.3 NG/ML (0.5-3.6) Troponin I 0.32 NG/ML (0.02-0.05) 0.29 NG/ML (0.02-0.05) 0.28 NG/ML (0.02-0.05) Triglycerides Level 93 MG/DL (42-150) Cholesterol Level 117 MG/DL (120-200) LDL Cholesterol 69 MG/DL (0-99) HDL Cholesterol 29.8 MG/DL (40.0-60.0) Cholesterol/HDL Ratio 3.92 RATIO Neutrophils (%) (Auto) 65.2 % (16.0-70.0) Lymphocytes (%) (Auto) 23.9 % (9.0-44.0) Monocytes (%) (Auto) 9.5 % (0.0-8.0) Eosinophils (%) (Auto) 0.7 % (0.0-4.0) Basophils (%) (Auto) 0.7 % (0.0-2.0) Neutrophils # (Auto) 5.0 TH/MM3 (1.8-7.7) Lymphocytes # (Auto) 1.8 TH/MM3 (1.0-4.8) Monocytes # (Auto) 0.7 TH/MM3 (0-0.9) Eosinophils # (Auto) 0.1 TH/MM3 (0-0.4) Basophils # (Auto) 0.1 TH/MM3 (0-0.2) CBC Comment DIFF FINAL Differential Comment . Result Diagram: 10/04/17 0500 Patient/Family Conference Present at Family Conference: Spoke with his sister, Kristen Leong, via telephone and updated her as to patient clinical course, condition and current refusal of food, fluid or medications. She stated she felt as though her brother was indicating that he did not wish to live in this condition and has changed his CODE STATUS to DO NOT RESUSCITATE and requested information from hospice. Hospice consult entered. Family Conference Location: Telephone Issues Discussed: * Palliative care role, purpose, approach * Additional medical, psychosocial, and spiritual history * Patients general health, functional status, and cognitive changes in the months leading up to the current hospitalization * Patient/family understanding of the current medical problems * Patient/family understanding of prognosis * Patients goals of care as best understood from advance directives and/or conversations and/or values * Current medical treatment options and benefits/burdens of those options * Likely scenarios comparing ongoing aggressive care with a transition to comfort measures only * Questions answered to the best of my ability * Palliative care contact information provided Assessment and Plan Disease Oriented Problem List: (1) Paroxysmal SVT (supraventricular tachycardia) (2) Hematuria (3) Aphasia (4) CVA (cerebral vascular accident) (5) HIV (human immunodeficiency virus infection) (6) Impaired mobility and activities of daily living (7) Aspiration into airway (8) Elevated troponin Symptom Scale: (1) Dyspnea and respiratory abnormalities (2) Pain, generalized Pertinent Non-Medical Issues Psychosocial:Born and brought up in [place], prior to admission lived with his girlfriend. He has a brother and sister who live locally and assist with his decision making. Spiritual: Utility Worker Production available Legal: No known legal issues. Ethical issues impacting care: No known ethical issues. . Important Contacts Sister: Kristen Huynh Brother: Errol Huynh . Prognosis His prognosis is poor. This is his second stroke and he has suffered some significant disability. He is having difficulty swallowing, he is aphasic and flaccid on the right side with weakness on the left side. He had previously told his sister he under no circumstances wanted any sort of artificial sustenance. She states her decisions will be consistent with his wishes and at this time feels that hospice is in his best interest. Hospice consult pending. Code Status: No Code Plan PLAN: Legal decision maker: He does not appear to have capacity to make his decisions and at this time he is not communicating with us. He had previously named his sister Kristen as his primary healthcare surrogate and his brother Errol as the alternate. Goals: Comfort oriented. CODE STATUS: DNR. SYMPTOMS: * Dyspnea: Multifactorial to include atrial dysrhythmia, possible aspiration, as well as his increased risk of pulmonary embolus from a patent foramen ovale with [id number] shunt. Due to his aphasia and swallowing difficulties he may have difficulty clearing secretions. He is receiving guaifenesin. He is currently on room air but has oxygen available if necessary. * Pain: Possible sources of pain include bedbound status, immobility, assisted devices, splints. He has morphine 2-4 mg IV every 3 hours as needed. He has used 2 doses of 4 mg today. Summary: This is a 72-year-old male who has suffered his second stroke. His risk factors for continued stroke include patent foramen ovale and paroxysmal atrial fibrillation. He had previously been anticoagulated but has now developed significant hematuria. CT of the abdomen and pelvis indicate a large mass versus a large blood clot in the bladder. He is refusing food and fluid and declining all medications. After discussion with his sister, she has made him a DO NOT RESUSCITATE status and is considering hospice. She is that primary healthcare surrogate but wishes to discuss this with her brother, Errol, who is the alternate prior to making her decision. Hospice consult has been initiated. Palliative care will continue to follow the patient during hospital course as condition evolves, to assist patient/decision-maker with understanding of their medical conditions, weighing benefits/burdens of treatment options, for clarification of goals of treatment. Additionally will assist with any symptoms of palliative concern. . Thank you for the opportunity to participate in the care of Mr. Parry. Attestation To help prompt me to consider important information that might be impacting today's encounter and assessment, information from prior notes written by myself or my colleagues may have been "brought forward" into today's note. My signature on this note, however, is an attestation that I personally performed the exam, history, and/or decision-making noted today, and, unless otherwise indicated, the interactions with patient, family, and staff as well as the review of records all occurred today. I also attest that the listed assessment and stated plan reflect my best clinical judgment today based on the combination of historical information, prior notes, and today's exam/ interactions. When time spent is documented, it refers only to time spent today by the signer, or if indicated, combined time spent today by collaborating physician/nurse practitioner. . Mary Cordero Oct 04, 2017 4:02 pm
[2017-10-04] MEDS: EMTRICITABINE/TENOFOVIR 200 MG/300 MG TAB PO SCH (21:00)
--- NOTE | 2017-10-04 21:56 | EKG ---
Date Performed: 10/04/2017 Time Performed: 02:33:26 PTAGE: 72 years EKG: Sinus rhythm with PAC(s) Left axis deviation RBBB with left anterior fascicular block Possible inferior infarct - age undetermined Abnormal ECG PREVIOUS TRACING : 10/03/2017 20.40 Compared to prior tracing no significant change DOCTOR: Alex Gomez Interpretating Date/Time 10/04/2017 21:56:04
--- NOTE | 2017-10-04 22:35 | EKG ---
Date Performed: 10/03/2017 Time Performed: 20:40:56 PTAGE: 72 years EKG: Sinus rhythm with PAC(s) Left axis deviation RBBB with left anterior fascicular block Possible inferior infarct - age undetermined Lateral T wave changes are nonspecific Abnormal ECG PREVIOUS TRACING : 10/03/2017 14.35 Compared to prior tracing no significant change DOCTOR: Alex Gomez Interpretating Date/Time 10/04/2017 22:33:54
--- NOTE | 2017-10-04 23:06 | EKG ---
Date Performed: 10/03/2017 Time Performed: 14:35:38 PTAGE: 72 years EKG: Sinus tachycardia with PVC(s) with PAC(s) Possible left atrial abnormality Left axis deviat ion Right bundle branch block Inferior infarct - age undetermined Possible lateral infarct - age unde termined Abnormal ECG PREVIOUS TRACING : 09/17/2017 18.47 DOCTOR: Alex Gomez Interpretating Date/Time 10/04/2017 23:06:02
== END 2017-10-04 23:02 | disposition hospice, inpatient (51) | DRG 281 ==
LOC: HCIS 14:09
PROVIDERS: ADMIT Family Medicine; ATTEND Family Medicine
DX: I21.4 Non-ST elevation (NSTEMI) myocardial infarction (principal); I69.351 Hemiplegia and hemiparesis following cerebral infarction affecting right dominant side; I48.0 Paroxysmal atrial fibrillation; I47.1 Supraventricular tachycardia; Q21.1 Atrial septal defect; R13.10 Dysphagia, unspecified; I69.320 Aphasia following cerebral infarction; Z21 Asymptomatic human immunodeficiency virus [HIV] infection status; Z66 Do not resuscitate; I10 Essential (primary) hypertension; E78.5 Hyperlipidemia, unspecified; D50.9 Iron deficiency anemia, unspecified; N40.0 Benign prostatic hyperplasia without lower urinary tract symptoms; R31.9 Hematuria, unspecified
CPT/HCPCS: 80061; 82550; 82552; 84484; 85025; 85027; 85610; 85730; 93005; J0282; J2270; J2543; J7050